=== PATIENT | male | born 1945 | race Caucasian/White ===

== ENCOUNTER 2017-11-03 19:15 | Emergency (ER) | payer MEDICARE, OTHER ==
[2017-11-03 21:45] VITALS: BP 131/85
--- NOTE | 2017-11-04 01:11 | ED ---
Aristides Cowan Nilda, scribed for Solomon Rosas MD on 11/03/17 at 2146 . Skin Complaint - HPI Summary HPI Summary: Pt is a 72 y/o who found tick on right upper arm earlier today. Pt states daughter removed it for him. Pt denies pain, fever, and any other symptoms. Symptoms aggravated by nothing and alleviated by tick removal. - History of Current Complaint Chief Complaint: EDAnimalBite Time Seen by Provider: 11/03/17 21:37 Stated Complaint: TICK BITE Hx Obtained From: Patient Onset/Duration: Resolved Skin Exposure Onset/Duration: Minutes Ago Current Severity: None Pain Intensity: 0 Pain Scale Used: 0-10 Numeric Skin Location: Other: - right upper arm Aggravating Symptom(s): Nothing Alleviating Symptom(s): Other: - tick removal Related History: Insect Bite/Sting - Allergy/Home Medications Allergies/Adverse Reactions: Allergies Allergy/AdvReac Type Severity Reaction Status Date / Time No Known Allergies Allergy Verified 11/03/17 19:21 PMH/Surg Hx/FS Hx/Imm Hx Endocrine/Hematology History: Reports: Hx Diabetes Cardiovascular History: Reports: Hx Hypertension Infectious Disease History: No Infectious Disease History: Denies: Traveled Outside the [place] in Last 30 Days - Social History Alcohol Use: Weekly Substance Use Type: Reports: None Smoking Status (MU): Never Smoked Tobacco Review of Systems Negative: Fever Positive: Other - tick bite on right upper arm; negative pain. All Other Systems Reviewed And Are Negative: Yes Physical Exam - Summary Physical Exam Summary: VITAL SIGNS: Reviewed. GENERAL: Patient is a well-developed and nourished male who is lying comfortable in the stretcher. Patient is not in any acute respiratory distress. HEAD AND FACE: No signs of trauma. No ecchymosis, hematomas or skull depressions. No sinus tenderness. EYES: PERRLA, EOMI x 2, No injected conjunctiva, no nystagmus. EARS: Hearing grossly intact. Ear canals and tympanic membranes are within normal limits. MOUTH: Oropharynx within normal limits. NECK: Supple, trachea is midline, no adenopathy, no JVD, no carotid bruit, no c- spine tenderness, neck with full ROM. CHEST: Symmetric, no tenderness at palpation LUNGS: Clear to auscultation bilaterally. No wheezing or crackles. CVS: Regular rate and rhythm, S1 and S2 present, no murmurs or gallops appreciated. ABDOMEN: Soft, non-tender. No signs of distention. No rebound no guarding, and no masses palpated. Bowel sounds are normal. EXTREMITIES: FROM in all major joints, no edema, no cyanosis or clubbing. NEURO: Alert and oriented x 3. No acute neurological deficits. Speech is normal and follows commands. SKIN: Dry and warm; Pt has a pinpoint skin break over medial aspect of right upper arm. No ACM. No rash. It seems tick has been totally removed. Triage Information Reviewed: Yes Vital Signs On Initial Exam: Initial Vitals Temp Pulse Resp BP Pulse Ox 98.5 F 106 18 153/76 94 11/03/17 19:19 11/03/17 19:19 11/03/17 19:19 11/03/17 19:19 11/03/17 19:19 Vital Signs Reviewed: Yes Diagnostics - Vital Signs Vital Signs Temp Pulse Resp BP Pulse Ox 11/03/17 19:19 98.5 F 106 18 153/76 94 - Laboratory Lab Statement: Any lab studies that have been ordered have been reviewed, and results considered in the medical decision making process. Course/Dx - Course Assessment/Plan: Pt is a 72 y/o who found tick on right upper arm earlier today. Pt states daughter removed it for him. Pt denies pain, fever, and any other symptoms. Pt will be D/C home with Dx tick bite and instructions to receive Lyme titer in 6 weeks, return to ED if rash develops, and to follow up with PCP. - Diagnoses Provider Diagnoses: Tick bite of right upper arm Discharge - Sign-Out/Discharge Documenting (check all that apply): Discharge - home - Discharge Plan Condition: Stable Disposition: HOME Patient Education Materials: Lyme Disease (ED), Tick Bite (ED) Referrals: Jayleen Ulloa MD [Primary Care Provider] - 3 Days Additional Instructions: If you develop rash, return to ER. Obtain a Lyme titer 6 weeks from now. The documentation as recorded by the Aristides ryan Nilda accurately reflects the service I personally performed and the decisions made by , Solomon Rosas MD.
== END 2017-11-03 21:46 | disposition home or self-care (01) ==
LOC: ED 19:15
DX: S40.861A Insect bite (nonvenomous) of right upper arm, initial encounter (principal); W57.XXXA Bitten or stung by nonvenomous insect and other nonvenomous arthropods, initial encounter; Y92.9 Unspecified place or not applicable
CPT/HCPCS: 99281

== ENCOUNTER 2017-12-13 20:24 | Emergency (ER) | payer MEDICARE, OTHER ==
[2017-12-13] MEDS ORDERED: NS 0.9% 1000 ML* 1,000 ML IV ONE (20:53)
[2017-12-13 21:10] LABS: Hematocrit 41 % (42-52); Hemoglobin 13.4 g/dl (14.0-18.0); Mean Corpuscular HGB Conc 33 g/dl (31-36); Mean Corpuscular Hemoglobin 25 pg (27-31); Mean Corpuscular Volume 76 fL (80-94); Mean Platelet Volume 8.6 um3 (7.4-10.4); Platelet Count 183 10^3/ul (150-450); Red Blood Count 5.37 10^6/ul (4.0-5.4); Red Cell Distribution Width 16 % (10.5-15)
[2017-12-13 21:13] LABS: ABS Basophils 0.1 10^3/ul (0-0.2); ABS Eosinophils 0.2 10^3/ul (0-0.6); ABS Monocytes 0.4 10^3/ul (0-0.8); ABS Neutrophils 4.2 10^3/ul (1.5-7.7); ABS Nucleated RBC 0 10^3/ul; Eosinophil % 3.5 % (0-6); Lymphocyte % 17.2 % (25-47); Nucleated Red Blood Cells % 0
[2017-12-13 21:16] LABS: INR 0.97 (0.77-1.02)
[2017-12-13 22:02] VITALS: BP 149/84
--- NOTE | 2017-12-14 04:31 | ED ---
Willy Cowan Jennifer, scribed for Cesar Bhakta MD on 12/13/17 at 2142 . Dizziness - HPI Summary HPI Summary: The patient is a 72 year old male who presents with dizziness that began about 1.5 hours ago. The patient reports he sat down after eating dinner and felt sweaty, cold, lightheaded, and had trouble catching his breath. The patient denies chest pain, spinning, vomiting, diarrhea, syncope, irregular heartbeat. He does complain of a little nausea, and feeling his heart beat. The patient states he feels fine in the ED now. - History Of Current Complaint Chief Complaint: EDDizziness Stated Complaint: DIZZY/SWEATING/SOB Time Seen by Provider: 12/13/17 21:34 Hx Obtained From: Patient Onset/Duration: Resolved, Suddenly Timing: Hours - about 1.5 hours Severity Initially: Mild Severity Currently: Mild Character: Lightheaded Aggravating Factor(s): Nothing Alleviating Factor(s): Nothing Associated Signs And Symptoms: Positive: Other: - little nausea, lightheadedness , sweaty, cold, trouble catching breath, "felt heart beat". NEGATIVE: chest pain , spinning, vomiting, diarrhea, syncope, irregular heartbeat - Allergies/Home Medications Allergies/Adverse Reactions: Allergies Allergy/AdvReac Type Severity Reaction Status Date / Time No Known Allergies Allergy Verified 12/13/17 20:34 Home Medications: Home Medications Aspirin 81 mg CHEW TAB* [Aspirin Low Dose TAB*] 81 mg PO DAILY 12/13/17 [ History Confirmed 12/13/17] Cilostazol TAB* [Pletal TAB*] 100 mg PO BID 12/13/17 [History Confirmed 12/13/17 ] Clopidogrel TAB* [Plavix TAB*] 75 mg PO DAILY 12/13/17 [History Confirmed ] Fish Oil/Borage/Flax/Om3,6,9 1 [[place] 3-6-9 1,200 mg Softgel] 1,200 mg PO DAILY 12/13/17 [History Confirmed 12/13/17] Levothyroxine Sodium 50 mcg PO QAM 12/13/17 [History Confirmed 12/13/17] Lisinopril [Lisinopril] 40 mg PO DAILY 12/13/17 [History Confirmed 12/13/17] Metoprolol Tartrate TAB* [Lopressor TAB*] 0.5 tab PO DAILY 12/13/17 [History Confirmed 12/13/17] Omeprazole [Omeprazole] 20 mg PO DAILY 12/13/17 [History Confirmed 12/13/17] Sitagliptin (NF) [Januvia (NF)] 50 mg PO BID 12/13/17 [History Confirmed ] glipiZIDE [Glipizide] 10 mg PO BID 12/13/17 [History Confirmed 12/13/17] metFORMIN* [Glucophage 1000 MG TAB *] 1,000 mg PO BID 12/13/17 [History Confirmed 12/13/17] PMH/Surg Hx/FS Hx/Imm Hx Endocrine/Hematology History: Reports: Hx Diabetes - Type 2 Cardiovascular History: Reports: Hx Hypertension, Other Cardiovascular Problems/ Disorders - Hx stent in right leg Infectious Disease History: No Infectious Disease History: Denies: Traveled Outside the [place] in Last 30 Days - Social History Alcohol Use: Weekly Substance Use Type: Reports: None Hx Tobacco Use: Yes Smoking Status (MU): Smoker, Current Status Unknown Review of Systems Positive: Skin Diaphoresis, Other - Cold Cardiovascular: Negative - Irregular heartbeat Positive: Palpitations - "felt heart beat". Negative: Chest Pain Positive: Shortness Of Breath Positive: Nausea. Negative: Vomiting, Diarrhea Neurological: Negative - Spinning, Other - Lightheaded Negative: Syncope All Other Systems Reviewed And Are Negative: Yes Physical Exam - Summary Physical Exam Summary: Appearance: Well appearing, no pain distress Skin: warm, dry, reflects adequate perfusion Head/face: normal Eyes: EOMI, RICA ENT: normal Neck: supple, non-tender Respiratory: CTA, breath sounds present Cardiovascular: RRR, pulses symmetrical Abdomen: non-tender, soft Bowel Sounds: present Musculoskeletal: normal, strength/ROM intact, no lower extremity edema Neuro: normal, sensory motor intact, A&Ox3 Triage Information Reviewed: Yes Vital Signs On Initial Exam: Initial Vitals Temp Pulse Resp BP Pulse Ox 97.5 F 82 20 128/63 94 12/13/17 20:30 12/13/17 20:30 12/13/17 20:30 12/13/17 20:30 12/13/17 20:30 Vital Signs Reviewed: Yes Diagnostics - Vital Signs Vital Signs Temp Pulse Resp BP Pulse Ox 12/13/17 21:27 75 17 113/57 93 12/13/17 21:00 77 17 94 12/13/17 20:56 78 11 120/61 95 12/13/17 20:30 97.5 F 82 20 128/63 94 - Laboratory Lab Results: Lab Results 12/13/17 12/13/17 12/13/17 Range/Units 21:02 21:02 21:02 WBC 6.0 (3.5-10.8) 10^3/ul RBC 5.37 (4.0-5.4) 10^6/ul Hgb 13.4 L (14.0-18.0) g/dl Hct 41 L (42-52) % MCV 76 L (80-94) fL MCH 25 L (27-31) pg MCHC 33 (31-36) g/dl RDW 16 H (10.5-15) % Plt Count 183 (150-450) 10^3/ul MPV 8.6 (7.4-10.4) um3 Neut % (Auto) 71.3 (38-83) % Lymph % (Auto) 17.2 L (25-47) % [place] % (Auto) 7.0 (0-7) % Eos % (Auto) 3.5 (0-6) % Baso % (Auto) 1.0 (0-2) % Absolute Neuts (auto) 4.2 (1.5-7.7) 10^3/ul Absolute Lymphs (auto) 1.0 (1.0-4.8) 10^3/ul Absolute Monos (auto) 0.4 (0-0.8) 10^3/ul Absolute Eos (auto) 0.2 (0-0.6) 10^3/ul Absolute Basos (auto) 0.1 (0-0.2) 10^3/ul Absolute Nucleated RBC 0 10^3/ul Nucleated RBC % 0 INR (Anticoag Therapy) (0.77-1.02) Sodium 140 (139-145) mmol/L Potassium 3.3 L (3.5-5.0) mmol/L Chloride 108 (101-111) mmol/L Carbon Dioxide 23 (22-32) mmol/L Anion Gap 9 (2-11) mmol/L BUN 18 (6-24) mg/dL Creatinine 1.23 H (0.67-1.17) mg/dL Est GFR ( Amer) 74.6 (>60) Est GFR (Non-Af Amer) 58.0 (>60) BUN/Creatinine Ratio 14.6 (8-20) Glucose 112 H (70-100) mg/dL Lactic Acid 1.6 (0.5-2.0) mmol/L Calcium 9.1 (8.6-10.3) mg/dL Total Bilirubin 0.40 (0.2-1.0) mg/dL AST 17 (13-39) U/L ALT 23 (7-52) U/L Alkaline Phosphatase 42 (34-104) U/L Total Creatine Kinase 54 (10-223) U/L Troponin I Pending Total Protein 6.7 (6.4-8.9) g/dL Albumin 4.1 (3.2-5.2) g/dL Globulin 2.6 (2-4) g/dL Albumin/Globulin Ratio 1.6 (1-3) TSH Pending 12/13/17 Range/Units 21:02 WBC (3.5-10.8) 10^3/ul RBC (4.0-5.4) 10^6/ul Hgb (14.0-18.0) g/dl Hct (42-52) % MCV (80-94) fL MCH (27-31) pg MCHC (31-36) g/dl RDW (10.5-15) % Plt Count (150-450) 10^3/ul MPV (7.4-10.4) um3 Neut % (Auto) (38-83) % Lymph % (Auto) (25-47) % [place] % (Auto) (0-7) % Eos % (Auto) (0-6) % Baso % (Auto) (0-2) % Absolute Neuts (auto) (1.5-7.7) 10^3/ul Absolute Lymphs (auto) (1.0-4.8) 10^3/ul Absolute Monos (auto) (0-0.8) 10^3/ul Absolute Eos (auto) (0-0.6) 10^3/ul Absolute Basos (auto) (0-0.2) 10^3/ul Absolute Nucleated RBC 10^3/ul Nucleated RBC % INR (Anticoag Therapy) 0.97 (0.77-1.02) Sodium (139-145) mmol/L Potassium (3.5-5.0) mmol/L Chloride (101-111) mmol/L Carbon Dioxide (22-32) mmol/L Anion Gap (2-11) mmol/L BUN (6-24) mg/dL Creatinine (0.67-1.17) mg/dL Est GFR ( Amer) (>60) Est GFR (Non-Af Amer) (>60) BUN/Creatinine Ratio (8-20) Glucose (70-100) mg/dL Lactic Acid (0.5-2.0) mmol/L Calcium (8.6-10.3) mg/dL Total Bilirubin (0.2-1.0) mg/dL AST (13-39) U/L ALT (7-52) U/L Alkaline Phosphatase (34-104) U/L Total Creatine Kinase (10-223) U/L Troponin I Total Protein (6.4-8.9) g/dL Albumin (3.2-5.2) g/dL Globulin (2-4) g/dL Albumin/Globulin Ratio (1-3) TSH Result Diagrams: 12/13/17 21:02 12/13/17 21:02 Lab Statement: Any lab studies that have been ordered have been reviewed, and results considered in the medical decision making process. - EKG 2032 Cardiac Rate: NL EKG Rhythm: Sinus Rhythm - 77 BPM EKG Interpretation: Normal axis, 1st degree AV block Re-Evaluation - Re-Evaluation First Eval Change: Improved - Symptoms are fully resolved Dizzy Course/Dx - Course Course Of Treatment: Patient with abrupt onset of lightheadedness without rotational vertigo. Blood sugar is normal, laboratories here are benign. His symptoms have resolved fully. The symptoms were postprandial and may have been due to a dip in his blood sugar at that time. This of course would recover quickly. His symptoms went away fairly quickly as well. He has no headache or neurologic deficit. Will follow-up with his primary care physician. - Diagnoses Differential Diagnosis/HQI/PQRI: Anxiety, Benign Paroxysmal Positional Vertigo, Hyperventilation, Hypovolemia, Labyrinthitis, Metabolic Abnormality, Vasovagal Reaction Provider Diagnoses: Lightheadedness Discharge - Sign-Out/Discharge Documenting (check all that apply): Discharge/Admit/Transfer - Discharge Plan Condition: Good Disposition: HOME Patient Education Materials: Sushant (ED) Referrals: Jayleen Ulloa MD [Primary Care Provider] - Additional Instructions: If this happens again immediately checked her blood sugar and sit down. Try some orange juice if her blood sugar is below 70. Call your doctor first thing in the morning for follow-up. Return if worse, new symptoms, or other concerns. - Billing Disposition and Condition Condition: GOOD Disposition: HOME The documentation as recorded by the Willy ryan Jennifer accurately reflects the service I personally performed and the decisions made by me, Cesar Bhakta MD.
== END 2017-12-13 22:15 | disposition home or self-care (01) ==
LOC: ED 20:24
DX: R42 Dizziness and giddiness (principal); R00.2 Palpitations; R11.0 Nausea; Z72.0 Tobacco use; Z86.79 Personal history of other diseases of the circulatory system; E11.9 Type 2 diabetes mellitus without complications
CPT/HCPCS: 36415; 80053; 82550; 83605; 84443; 84484; 85025; 85610; 93005; 96360; 99283

== ENCOUNTER 2017-12-22 16:02 | Emergency (ER) | payer MEDICARE, OTHER ==
[2017-12-22 16:18] VITALS: BP 109/63
--- NOTE | 2018-01-29 19:45 | UC ---
Skin Complaint HPI - HPI Summary HPI Summary: red itchy spot at area of blood draw on left arm last week---no streaking fevers chills swelling or pain - History of Current Complaint Chief Complaint: UCSkin Time Seen by Provider: 12/22/17 16:41 Stated Complaint: SKIN COMPLAINT ARM Hx Obtained From: Patient Onset/Duration: Sudden Onset Skin Exposure Onset/Duration: Days Ago Timing: Constant Pain Intensity: 3 Pain Scale Used: 0-10 Numeric Location: Discrete Character: Redness Aggravating Factor(s): Nothing Alleviating Factor(s): Nothing Associated Signs & Symptoms: Positive: Negative - Allergy/Home Medications Allergies/Adverse Reactions: Allergies Allergy/AdvReac Type Severity Reaction Status Date / Time No Known Allergies Allergy Verified 12/22/17 16:18 Review of Systems Constitutional: Negative Skin: Other - small erythemic area right arm Eyes: Negative ENT: Negative Respiratory: Negative Cardiovascular: Negative Gastrointestinal: Negative Genitourinary: Negative Motor: Negative Neurovascular: Negative Musculoskeletal: Negative Neurological: Negative Psychological: Negative Is Patient Immunocompromised?: No All Other Systems Reviewed And Are Negative: Yes PMH/Surg Hx/FS Hx/Imm Hx Previously Healthy: No Endocrine History: Diabetes, Hypothyroidism Cardiovascular History: Cardiac Disease, Hypertension - Surgical History Surgical History: Yes Surgery Procedure, Year, and Place: stent rt leg - Family History Known Family History: Positive: None - Social History Occupation: Disabled Lives: With Family Alcohol Use: Weekly Substance Use Type: None Smoking Status (MU): Light Every Day Tobacco Smoker Physical Exam Triage Information Reviewed: Yes Appearance: Well-Appearing, No Pain Distress, Well-Nourished Vital Signs: Initial Vital Signs Temp 98.6 F 12/22/17 16:15 Pulse 70 12/22/17 16:15 Resp 18 12/22/17 16:15 BP 109/63 12/22/17 16:15 Pulse Ox 97 12/22/17 16:15 Vital Signs Reviewed: Yes Eye Exam: Normal Eyes: Positive: Conjunctiva Clear ENT Exam: Normal ENT: Positive: Normal ENT inspection, Hearing grossly normal. Negative: Trismus , Muffled voice, Hoarse voice Dental Exam: Normal Neck exam: Normal Neck: Positive: Supple, Nontender Respiratory Exam: Normal Respiratory: Positive: Chest non-tender, No respiratory distress, No accessory muscle use Cardiovascular Exam: Normal Cardiovascular: Positive: RRR, Pulses Normal, Brisk Capillary Refill Musculoskeletal Exam: Normal Musculoskeletal: Positive: Strength Intact, ROM Intact Neurological Exam: Normal Neurological: Positive: Alert, Muscle Tone Normal Psychological Exam: Normal Psychological: Positive: Normal Response To Family Skin: Positive: Other - smll erythemic area right arm Course/Dx - Course Course Of Treatment: WARM COMPRESS FOLLOW WITH PCP PRN - Diagnoses Provider Diagnoses: phlebitis right forearm Discharge - Sign-Out/Discharge Documenting (check all that apply): Discharge/Admit/Transfer - Discharge Plan Condition: Stable Disposition: HOME Patient Education Materials: Warm Compress or Soak (ED), Phlebitis (ED) Referrals: Jayleen Ulloa MD [Primary Care Provider] - If Needed - Billing Disposition and Condition Condition: STABLE Disposition: Home
== END 2017-12-22 17:04 | disposition home or self-care (01) ==
LOC: UCEAST 16:02
DX: T81.72XA Complication of vein following a procedure, not elsewhere classified, initial encounter (principal); I80.8 Phlebitis and thrombophlebitis of other sites; E11.9 Type 2 diabetes mellitus without complications; E03.9 Hypothyroidism, unspecified; I11.9 Hypertensive heart disease without heart failure; F17.210 Nicotine dependence, cigarettes, uncomplicated
CPT/HCPCS: 99211; G0463

== ENCOUNTER 2018-01-12 13:31 | Inpatient (IN) | payer MEDICARE, OTHER ==
[2018-01-12] MEDS ORDERED: NS 0.9% 1000 ML* 1,000 ML IV ONE (13:53)
[2018-01-12] MEDS ORDERED: Atropine 1MG/ML INJ* 1 ML VIAL IV PUSH PRN (13:58)
[2018-01-12] MEDS ORDERED: Atropine SYRINGE* 0.1 MG/ML 10 ML SYRINGE (1 MG) ONE ×2 (13:58→21:27)
[2018-01-12 14:16] LABS: Hematocrit 36 % (42-52); Hemoglobin 11.8 g/dl (14.0-18.0); Mean Corpuscular HGB Conc 33 g/dl (31-36); Mean Corpuscular Hemoglobin 25 pg (27-31); Mean Corpuscular Volume 75 fL (80-94); Mean Platelet Volume 8.1 um3 (7.4-10.4); Platelet Count 266 10^3/ul (150-450); Red Blood Count 4.83 10^6/ul (4.00-5.40); Red Cell Distribution Width 16 % (10.5-15); White Blood Count 4.9 10^3/ul (3.5-10.8)
[2018-01-12 14:27] LABS: INR 0.97 (0.77-1.02)
[2018-01-12 14:34] LABS: EGFR Non-African American 68.1 (>60)
[2018-01-12 14:50] LABS: ABS Basophils 0.1 10^3/ul (0-0.2); ABS Eosinophils 0.2 10^3/ul (0-0.6); ABS Lymphocytes 1.1 10^3/ul (1.0-4.8); ABS Monocytes 0.5 10^3/ul (0-0.8); ABS Neutrophils 3.1 10^3/ul (1.5-7.7); ABS Nucleated RBC 0 10^3/ul; Eosinophil % 3.9 % (0-6); Lymphocyte % 21.7 % (25-47); Nucleated Red Blood Cells % 0.1
[2018-01-12] MEDS ORDERED: Iodixanol* (CONTRAST) 320 MG/ML 100 ML SDV IV ONE (14:56)
--- NOTE | 2018-01-12 15:26 | RAD ---
INDICATION: Chest pain. Short of breath. Evaluate for pulmonary embolus. COMPARISON: Chest x-ray January 12, 2018 TECHNIQUE: Axial source images were obtained from the thoracic inlet to the hemidiaphragms following administration of [address] angiographic technique was utilized. Coronal and sagittal reconstructed images were acquired. CHEST FINDINGS: Neck/thyroid: The visualized neck to include the thyroid appear normal. Chest wall: There are no acute abnormalities of the bony thorax or chest wall. There is no supraclavicular, infraclavicular, or axillary lymphadenopathy. Lungs : There are no pulmonary parenchymal masses or infiltrates. There are underlying emphysematous changes. There are no endobronchial lesions. Cardiomediastinal structures: There is no CT evidence of acute pulmonary embolic disease. The heart is normal in size. There is no pericardial effusion. There is no evidence of aortic aneurysm or dissection. There is no mediastinal or hilar adenopathy. The esophagus appears normal. Pleura : There are no pleural-based masses or effusions. Other: Limited views the upper abdomen show a 1.5 cm gallstone. IMPRESSION: 1. No CT evidence of acute pulmonary embolic disease. 2. Emphysema. 3. Cholelithiasis.
--- NOTE | 2018-01-12 15:27 | RAD ---
INDICATION: Chest pain COMPARISON: None TECHNIQUE: An AP portable view obtained at 1421 hours is submitted. FINDINGS: Bones/Soft Tissues: There are no acute bony findings. There is an external pacing pad Cardiomediastinal: The cardiomediastinal silhouette is normal. Lungs: There are no infiltrates. Pleura: There are no pleural effusions. Other: None IMPRESSION: NO ACTIVE DISEASE.
[2018-01-12] MEDS ORDERED: Magnesium Sulfate IV* 3 GM in NS 0.9% 100 ML* 100 ML IVPB ONE (18:30)
[2018-01-12] MEDS ORDERED: Al Hydrox/Mg Hydrox/Simet LIQ* 30 ML UDC PO PRN (18:53)
[2018-01-12] MEDS: cefTRIAXone(*) 2 GM in NS 0.9% 100 ML* 100 ML IVPB SCH (20:30)
[2018-01-12] MEDS ORDERED: Dextrose 50% Syringe 50 ML* 25 GM/50 ML SYRINGE IV PUSH PRN (21:41)
[2018-01-12] MEDS: NS 0.9% 1000 ML* 1,000 ML IV SCH (21:41)
[2018-01-12] MEDS: Heparin VIAL(*) 5000 UNITS/ML VIAL (FIVE THOUSAND) SUBCUT SCH (22:33)
[2018-01-12 22:59] LABS: Urine Appearance Clear; Urine Blood Negative (Negative); Urine Color Yellow; Urine Ketones Negative (Negative); Urine Protein Negative (Negative); Urine Specific Gravity 1.039 (1.010-1.030); Urine Urobilinogen Negative (Negative)
--- NOTE | 2018-01-13 02:08 | CONS ---
CC: [facility]; Dr. Ulloa.* CARDIOLOGY CONSULTATION NOTE: DATE OF CONSULT: 01/12/18 REASON FOR EVALUATION: Bradycardia. HISTORY OF PRESENT ILLNESS: This is a very pleasant 72-year-old gentleman with a history of peripheral vascular disease, hypertension, diabetes, and tobacco use, who has noted intermittent episodes of lightheadedness and feeling poorly over the last few months. He was seen in the emergency room in October for a tick bite, which was removed. He had no rash or fevers and no subsequent symptoms after that. In November, he was back for feeling episodes of lightheadedness and shortness of breath. According to the family, he is monitored occasionally for bradycardia, but his reported heart rate were in the 70s. His EKG from December 13 revealed sinus rhythm at 77 with first degree AV block. He said that about 6 weeks ago, he has told that his right leg stent is compromised and he may require repeat angioplasty. He states that the leg aches , but he has also been limited by shortness of breath and the leg achiness as well as some lightheadedness with exertion. He said this has been intermittent. He said that he thought he could walk about 100 yards until about a couple of weeks ago, but he has been more limited. He said over the last four days, he has had intermittent episodes of lightheadedness which lasted a second to 3 seconds and resolved. He has had no syncope. It can occur at rest or with standing or walking. He also thinks he is more short of breath with these episodes and with exertion. Because of those progressive symptoms, he decided to come to the emergency room. He was found to have sinus bradycardia into the 30s and some pauses. He denies chest pain. He denies orthopnea. He denies peripheral edema, syncope or near syncope. No fevers, chills, sweats, rashes, hematemesis, hematochezia. PAST MEDICAL HISTORY: He does have a history of tobacco use, half a pack per day and he smoked for about 50+ years, hypertension, diabetes. No strokes or mini strokes. Peripheral vascular disease status post stenting on the right 2 years ago at [facility]. He also was told that he snores and might have sleep apnea based on anesthesia's report of his behavior during his procedure 2 years ago. He has not had a formal testing. PAST SURGICAL HISTORY: Includes angioplasty on the right leg. No other surgeries. ALLERGIES: He denies any allergies. SOCIAL HISTORY: He drinks 4 to 5 cups of caffeinated coffee a day. He drinks alcohol about once a month. He is . He has 4 children. 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 MEDICATIONS: His medications include: 1. Aspirin 81 mg a day. 2. Pletal 100 mg twice a day. 3. Clopidogrel 75 mg a day. 4. Flonase 50 mcg 2 sprays daily. 5. Lisinopril 20 mg 2 tablets a day. 6. Januvia 50 mg a day. 7. Glipizide 10 mg a day. 8. Metformin 1000 mg twice a day. 9. Metoprolol 25 mg half a tablet twice a day. 10. Multivitamin. 11. [place]-3 1200 mg a day. 12. Omeprazole 20 mg a day. 13. Simvastatin 80 mg a day. 14. TriCor 145 mg a day. 15. Synthroid 50 mcg a day. As an inpatient, his medicines include: 1. Magnesium sulfate 3 g IV. 2. Subcu heparin 5000 q. 8. 3. Aspirin. 4. Lipitor 20 mg a day. 5. Ceftriaxone. FAMILY HISTORY: His family history includes 3 brothers, a younger brother had coronary stents in his 60s. He has a sister. No premature coronary disease. His mother at 96, father at 92. REVIEW OF SYSTEMS: Review of systems x10 was negative except as above. PHYSICAL EXAMINATION: On physical exam, he has a well-developed, obese gentleman, in no apparent distress. Pulse of 41 and varying, blood pressure is 123/60 in the right arm. JVD of approximately 10 cm. Carotids 2+, no bruits. No cervical adenopathy. No thyromegaly. Cardiac Exam: S1, S2. No clear murmurs, gallops, or rubs. Chest was clear. No CVAT, decreased breath sounds. Abdomen Exam: Bowel sounds present. Nontender. Femoral pulses intact with bruits, right greater than left. No significant edema. Distal pulses on the right, dorsalis pedis was present, posterior tibialis was absent. On the left, the posterior tibialis was present and dorsalis pedis was absent. alert/ oriented x3. DTR 2/4 bilaterally. DIAGNOSTIC STUDIES/LAB DATA: EKG from 1351 today revealed sinus bradycardia 45 , low amplitude. The EKG from 01/12 at 1909 revealed possible ectopic atrial rhythm and sinus bradycardia with junctional escape and sinus pauses. CTA of the chest reveals no evidence of pulmonary embolism, emphysema was present, and cholelithiasis was present. Chest x-ray revealed no active disease. No effusions. Labs include hematocrit of 36%, MCV low at 75, platelet count of 266. D-dimer of 434. INR 0.97. Sodium 139, potassium of 4.1. BUN of 25, creatinine of 1.07. Magnesium low 1.6. Troponin of 0. CRP elevated at 13.84. BNP mildly elevated at 173. TSH of 5.02. IMPRESSION: My impression is that Mr. Ferrari appears to have symptomatic sinus node dysfunction with a history of peripheral vascular disease, diabetes, hypertension, emphysema, tobacco use, and on metoprolol therapy. He also has a history of a tick bite. It is quite possible, he has developed symptomatic sinus node disease that may or may not reverse with holding the metoprolol. I did explain this to him and his family. I explained that it is likely he may require a pacemaker. I also explained there is increased risk of bleeding while on dual antiplatelet therapy. For the time being, I would recommend the following. He is to hold the Plavix for now as discussed with Dr. Gongora. Would observe at bed rest, off metoprolol, to follow for resolution of his bradycardia. If his symptomatic bradycardia persists, he may require a pacemaker. I explained to him even if it resolves, he may develop sinus node dysfunction in the future and may require pacemaker, needs to be vigilant for that. I would suggest an evaluation of his LV function with an echo given his risk factors for LV dysfunction. I would consider a pharmacologic stress test at some point once his heart rate is secured. I would also suggest an evaluation for sleep apnea. He has already gotten antibiotics in the form of ceftriaxone 2 g IV for possible Lyme disease. I would suggest checking a Lyme titer. Would continue atorvastatin as you are doing at 20 mg, would hold Plavix, you also got dose of doxycycline. He is getting heparin. Would replace the magnesium as you are doing. He has a low MCV anemia. consider checking iron and other etiologies for anemia. Further recommendation pending his clinical course. [id number]/[facility] #: [id number] [facility]
--- NOTE | 2018-01-13 03:43 | HP ---
CC: Dr. Jayleen Ulloa * HISTORY AND PHYSICAL: DATE OF ADMISSION: 01/12/18 PROVIDER: Rhonda Encarnacion NP PRIMARY CARE PROVIDER: Dr. Jayleen Ulloa ATTENDING PHYSICIAN WHILE IN THE HOSPITAL: Haleigh Gongora MD * (dictated by Rhonda Encarnacion NP) CHIEF COMPLAINT: 1. Shortness of breath. 2. Lightheadedness. HISTORY OF PRESENT ILLNESS: Mr. Ferrari is a 72-year-old male patient who carries a past medical history significant for peripheral vascular disease with stenting in the right leg, hypertension, diabetes type 2, hypothyroidism, and hyperlipidemia, who presented to the emergency room with a four-day history of complaining of lightheadedness. The patient states that approximately four days ago he developed some lightheadedness and shortness of breath. He denied any chest pain. He denies any cough or congestion. He denies any fevers or chills. He states that he has these periods where he has a feeling of losing his breath and chest heaviness that only lasts for a brief second and then resolves. He also reports that he has brief episodes of feeling lightheaded which also quickly resolve after a few seconds. The patient reports palpitations as well. He denies any recent sick contacts. Denies any nausea, vomiting, or diarrhea. Denies any new or changes in his medications. Denies any hematuria or dysuria. Denies any headache or loss of consciousness. Denies any syncopal episodes. While in the emergency room, the patient was placed on the monitor, routine lab work was drawn. The patient was found to be bradycardiac and with heart rates of between 25 and 52 on the monitor, and sinus dipesh. Due to his symptomatic profound bradycardia, we were asked to see and evaluate him in the emergency room. PAST MEDICAL HISTORY: Significant for: 1. Peripheral vascular disease with right leg stenting. 2. Hypertension. 3. Diabetes type 2. 4. Hypothyroidism. 5. Hyperlipidemia. PAST SURGICAL HISTORY: 1. Right leg stenting in 2016. HOME MEDICATIONS: 1. Simvastatin 40 mg p.o. daily. 2. Omeprazole 20 mg p.o. daily. 3. TriCor 145 mg p.o. daily. 4. Multivitamin one tablet p.o. daily. 5. Metoprolol 25 mg daily. He takes 12.5 mg b.i.d. for a total of 25 mg. 6. Fish oil 1200 mg p.o. daily. 7. Metformin 1000 mg p.o. b.i.d. 8. Lisinopril 40 mg p.o. daily. 9. Januvia 50 mg p.o. b.i.d. 10. Levothyroxine 50 mcg p.o. daily. 11. Glipizide 10 mg p.o. b.i.d. 12. Fluticasone nasal spray, two sprays both nares. 13. Clopidogrel 75 mg p.o. daily. 14. Pletal 100 mg p.o. b.i.d. 15. Aspirin 81 mg p.o. daily. ALLERGIES TO MEDICATIONS: No known drug allergies. He does report an allergy to ONIONS. FAMILY HISTORY: No reported history of coronary artery disease. Father with a history of diabetes. No reported history of cancer. SOCIAL HISTORY: The patient currently smokes half a pack per day. He reports rare alcohol use. Denies any illicit drug use. He is retired. He is . He lives with his children and grandchildren. Surrogate decision maker in the event he is unable to make his own decisions is his daughter, Rehana Marshall ; her phone number is [phone]. He is a full code. REVIEW OF SYSTEMS: There was no documented fever. There has been no significant weight change. There was no double vision, no ear drainage. He denies any rhinorrhea. He denies any sore throat. No thyroid issues. Denies any chest pain. He denies any orthopnea or nocturnal dyspnea. There was no abdominal pain. No nausea, vomiting. Denies dysuria or urinary frequency. There were no seizures. No loss of consciousness. He does report lightheadedness, palpitations, and a feeling of losing his breath at times. There were no seizures. No pruritus or skin ulcerations. Review of 14 systems was completed and others were negative. PHYSICAL EXAMINATION GENERAL: At this time, Mr. Ferrari is a 72-year-old male. He appears comfortable , alert and oriented, sitting on the stretcher in no acute distress. VITAL SIGNS: As follows: Temperature 97.8, heart rate anywhere from 27 to 63, bradycardia with periods of pausing, blood pressure 129/68. HEENT: Head is atraumatic, normocephalic. Eyes: EOMs are intact. Sclerae anicteric and not pale. Oral mucosa appeared to be moist. There is no oropharyngeal erythema. NECK: Supple. LUNGS: Clear to auscultation bilaterally. No wheezes, rales, or rhonchi. CARDIAC: S1, S2. Irregular rate and rhythm. There are no murmurs, rubs, or gallops. ABDOMEN: Soft and nontender. Bowel sounds are present x4. EXTREMITIES: Pulses are +2 throughout. He is moving all 4 extremities with 5/ 5 strength. NEUROLOGIC: He is awake, alert and oriented x4. There is no gross neuro focal deficits. His speech is clear. Tongue is midline. SKIN: Intact. DIAGNOSTIC STUDIES AND LABORATORY DATA: WBCs 4.9, RBCs 4.83, hemoglobin 11.8, hematocrit 36, platelet count 266. INR 0.97. D-dimer 434. Sodium 139, potassium 4.1, chloride 112, carbon dioxide 20. Anion gap 7, BUN 25, creatinine 1.07, glucose 181, lactic acid 1.4, calcium 9.0, magnesium 1.6. ALTs 70, ASTs 35, alk phos 64. C-reactive protein 13.84. BNP 173 and TSH 5.02 , and free T4 was 1.25. EKG showed slow sinus arrhythmia, rate of 57. He had a CT of the chest, radiologist impression: 1. No CT evidence of pulmonary embolic disease. 2. Emphysema. 3. Cholelithiasis. He had a chest x-ray, radiologist impression: No active disease. ASSESSMENT AND PLAN: Mr. Ferrari is a 72-year-old gentleman who presented to the emergency room today with a 4-day history of shortness of breath and dizziness. We were asked to see and evaluate him due to his shortness of breath and dizziness. He was found to have profound bradycardia. He will be admitted to the ICU inpatient for: 1. Bradycardia, sick sinus syndrome. I suspect this could possibly be related to his current beta-yasmeen, but also in the differential we should consider possible Lyme endocarditis as the patient recently had a tick bite in October 2017 that was untreated with any antibiotics. We will continue to trend his troponin. We will start normal saline at 100 cc per hour. He will have pacer pads attached to his chest and atropine at the bedside. Cardiology was consulted for further recommendations. His metoprolol will be held. His lisinopril will also be held. 2. Hypertension. We will continue to hold his metoprolol and lisinopril as his blood pressures are soft and he is profoundly bradycardiac. 3. Peripheral vascular disease. We will hold Plavix. At this time, we will continue his baby aspirin 81 mg and Pletal as the patient may possibly need pacemaker placement tomorrow or in the near future. 4. Diabetes. We will place him on lispro sliding scale and Accupril-checks a.c. and h.s. 5. Hypothyroid. We will continue his levothyroxine as prescribed at home. His TSH today was 5.02. 6. Hyperlipidemia. We will continue him on his simvastatin. 7. FEN. He will be placed on heart-healthy, decaf-okay diet. He will be n.p.o. after midnight in the event they would need to do pacemaker placement tomorrow. 8. Code status. He is a full code. 9. DVT prophylaxis. I will place him on heparin subcu. This should be held prior to pacemaker placement. TIME SPENT: Time spent on this admission was approximately 60 minutes, greater than half that time was spent with the patient [id number] obtaining my history and physical, the other half of the time was spent going over my plan of care and implementing my plan of care. I have discussed this with my attending, Dr. Haleigh Gongora, and she is in agreement with my plan. RHONDA ENCARNACION, FRANCISCA [id number]/[facility] #: [id number] JL
[2018-01-13] MEDS: Heparin VIAL(*) 5000 UNITS/ML VIAL (FIVE THOUSAND) SUBCUT SCH ×3 (05:52→21:48)
[2018-01-13] MEDS: Levothyroxine TAB* 50 MCG TAB PO SCH (05:52)
[2018-01-13 06:09] LABS: ABS Basophils 0 10^3/ul (0-0.2); ABS Eosinophils 0.1 10^3/ul (0-0.6); ABS Lymphocytes 0.9 10^3/ul (1.0-4.8); ABS Monocytes 0.4 10^3/ul (0-0.8); ABS Neutrophils 3.2 10^3/ul (1.5-7.7); ABS Nucleated RBC 0 10^3/ul; Hematocrit 35 % (42-52); Hemoglobin 11.3 g/dl (14.0-18.0); Lymphocyte % 18.4 % (25-47); Mean Corpuscular HGB Conc 33 g/dl (31-36); Mean Corpuscular Hemoglobin 25 pg (27-31); Mean Corpuscular Volume 75 fL (80-94); Mean Platelet Volume 8.3 um3 (7.4-10.4); Nucleated Red Blood Cells % 0; Platelet Count 225 10^3/ul (150-450); Red Blood Count 4.59 10^6/ul (4.00-5.40); Red Cell Distribution Width 16 % (10.5-15); White Blood Count 4.6 10^3/ul (3.5-10.8)
[2018-01-13 06:13] LABS: INR 0.98 (0.77-1.02)
[2018-01-13] MEDS: NS 0.9% 1000 ML* 1,000 ML IV SCH ×2 (06:53→17:13)
[2018-01-13] MEDS ORDERED: Clopidogrel TAB* 75 MG PO SCH (09:00)
[2018-01-13] MEDS: Aspirin 81 mg CHEW TAB* 81 MG TAB.CHEW PO SCH (09:10)
[2018-01-13] MEDS: Omeprazole CAP* 20 MG PO SCH (09:10)
[2018-01-13] MEDS: Atorvastatin* 20 MG TAB PO SCH (09:10)
[2018-01-13] MEDS: Multivitamins/Minerals TAB PO SCH (09:10)
[2018-01-13] MEDS: Insulin LISPRO* 1 UNITS UNIT SUBCUT SCH ×3 (09:11→17:33)
--- NOTE | 2018-01-13 09:38 | ECHO ---
Patient: LAZARO ANN [facility] Rec#: [id number] : 1945 Date: 01/13/2018 Age: 72y Height: 177.8 cm / 70.0 in Weight: 97.52 kg / 214.9 lbs Sex: M BSA: 2.15 Room#: [facility] Admit Date#: 01/12/2018 Type: Inpatient Referring: Rhonda Encarnacion Reading: Sharath Le MD Assembler [employer] Frames: Kayley Tirado RDCS CC: Jayleen Ulloa MD Transthoracic Echocardiogram Indication: Abnormal EKG, dyspnea. BP: 131/59 HR: 46 Rhythm: Bradycardia Findings History: PVD, HTN, DM, smoker, HLD, hypothyroidism, recent tick bite 10/2017. Technical Comments: The study quality is fair. The study is technically limited due to poor parasternal windows. Completed at 0830. Left Ventricle: The left ventricular chamber size is normal. Mild concentric left ventricular hypertrophy is observed. Global left ventricular wall motion and contractility are within normal limits. Left ventricular systolic function is at the lower limits of normal. The estimated ejection fraction is 50-55%. There is no consistent Doppler evidence of clinically significant diastolic dysfunction. Left Atrium: The left atrium is mildly dilated. Right Ventricle: The right ventricle is not well visualized. The right ventricle is mildly dilated. The right ventricular global systolic function is low normal. Right Atrium: The right atrium is not well visualized. The right atrium is mildly dilated. Aortic Valve: The aortic valve is trileaflet. The aortic valve leaflets are mildly thickened. There is a trace of aortic regurgitation. There is no evidence of aortic stenosis. Mitral Valve: The mitral valve leaflets are mildly thickened. There is a trace of mitral regurgitation. There is no evidence of mitral stenosis. Tricuspid Valve: The tricuspid valve leaflets are normal. There is mild tricuspid regurgitation. The right ventricular systolic pressure is estimated at 34 mmHg. There is evidence of borderline pulmonary hypertension. There is no tricuspid stenosis. Pulmonic Valve: The pulmonic valve appears normal. There is a trace pulmonic regurgitation. There is no pulmonic stenosis. Pericardium: There is no significant pericardial effusion. Aorta: There is mild dilatation of the ascending aorta. There is no dilatation of the aortic arch. There is mild dilatation of the aortic root. Pulmonary Artery: The main pulmonary artery is not well visualized. Venous: The inferior vena cava is dilated. There is less than 50% respiratory change in the inferior vena cava dimension. Conclusions The study is technically limited due to poor parasternal windows. Mild concentric left ventricular hypertrophy is observed. Global left ventricular wall motion and contractility are within normal limits. Left ventricular systolic function is at the lower limits of normal. The estimated ejection fraction is 50-55%. The left atrium is mildly dilated. The right ventricle is mildly dilated. The right atrium is mildly dilated. There is a trace of aortic regurgitation. There is no evidence of aortic stenosis. There is a trace of mitral regurgitation. There is mild dilatation of the ascending aorta. There is mild dilatation of the aortic root. No reports of prior studies are offered for comparison. Of note brief periods of a significant bradycardic rate are noted. The rhythm strip is not of a quality good enough to definitively analyze the precise rhythm. Measurements Name Value Normal Range RVIDd (AP) 2D 3.4 cm (0.9 - 2.6) RVDdMajor (2D) 4.7 cm (2.2 - 4.4) RAd ISD 4CH 6 cm (3.4 - 4.9) RA (A4C)W 4.6 cm (2.9 - 4.6) IVSd (2D) 1.1 cm (0.6 - 1) LVPWd (2D) 1.2 cm (0.6 - 1) LVIDd (2D) 4.1 cm (3.6 - 5.4) LVIDs (2D) 2.9 cm - LV FS (2D) 29 % (25 - 45) Aortic Annulus 2.1 cm (1.4 - 2.6) Ao root diameter (2D) 3.8 cm (2.1 - 3.5) Ascending Ao 3.8 cm (2.1 - 3.4) Aortic arch 2.7 cm (1.8 - 3.4) LA dimension (AP) 2D 3.2 cm (2.3 - 3.8) LAd ISD 4CH 6.2 cm (2.9 - 5.3) LA ISD 4CH W 4.6 cm (2.5 - 4.5) Name Value Normal Range LA ESV SP 4CH (A/L) 67 ml - LA ESV SP 2CH (A/L) 56 ml - LA ESV BP (A/L) 64 ml - LA ESV BP (A/L) index 30 ml/m2 - LA ESV SP 4CH (MOD) 60 ml - LA ESV SP 2CH (MOD) 55 ml - Name Value Normal Range MV E-wave Vmax 1 m/sec - MV deceleration time 248.9 msec - MV A-wave Vmax 0.6 m/sec - MV E:A ratio 1.67 ratio - LV septal e' Vmax 0.09 m/sec - LV lateral e' Vmax 0.12 m/sec - LV E:e' septal ratio 11.11 ratio - LV E:e' lateral ratio 8.33 ratio - Name Value Normal Range AV Vmax 1.3 m/sec - AV VTI 27.4 cm - AV peak gradient 6.78 mmHg - AV mean gradient 3.52 mmHg - LVOT Vmax 1.1 m/sec - LVOT VTI 24.39 cm - LVOT peak gradient 5.2 mmHg - LVOT mean gradient 2.4 mmHg - VINCENZO Vmax 0.71 m/sec - Name Value Normal Range TR Vmax 2.2 m/sec - TR peak gradient 19 mmHg - RAP 15 mmHg - RVSP 34 mmHg - IVC diameter 2.7 cm - Name Value Normal Range PV Vmax 0.88 m/sec - PV peak gradient 3.11 mmHg -
--- NOTE | 2018-01-13 11:59 | PN ---
Subjective Date of Service: 01/13/18 Interval History: Patient seen and examined at bedside. Denies fever, chills, shortness of breath , chest discomfort, N/V/D. Pt states that the tick removed in October was on him no longer than ~ 12 hours. Tele: Sinus dipesh, rate 30-60's Family History: Unchanged from Admission Social History: Unchanged from Admission Past Medical History: Unchanged from Admission Objective Active Medications: Acetaminophen (Tylenol Tab*) 650 mg PO Q4H PRN Reason: FEVER/PAIN Al Hydrox/Mg Hydrox/Simethicone (Maalox Plus*) 30 ml PO Q6H PRN Reason: INDIGESTION Aspirin (Aspirin 81 Mg Chew Tab*) 81 mg PO DAILY ASHLEY Atorvastatin Calcium (Lipitor*) 20 mg PO DAILY ASHLEY Atropine Sulfate (Atropine 1mg/Ml Inj*) 0.5 mg IV PUSH Q3M PRN Reason: BRADYCARDIA Dextrose (D50w Syringe 50 Ml*) 12.5 gm IV PUSH .FOR FS < 60 - SS PRN Reason: FS < 60 Fluticasone Propionate (Flonase Nasal [place] 50mcg*) 2 spray BOTH NARES DAILY ASHLEY Heparin Sodium (Porcine) (Heparin Vial(*)) 5,000 units SUBCUT Q8HR ASHLEY Sodium Chloride (Ns 0.9% 1000 Ml*) 1,000 mls @ 100 mls/hr IV PER RATE ASHLEY Ceftriaxone Sodium 2 gm/ (Sodium Chloride) 100 mls @ 200 mls/hr IVPB Q24H A[facility]LEY Insulin Human Lispro (Humalog*) 0 units SUBCUT AC ASHLEY; Protocol Levothyroxine Sodium (Synthroid Tab*) 50 mcg PO 0600 ASHLEY Multivitamins/Minerals (Theragran/Minerals Tab*) 1 tab PO DAILY ASHLEY Omeprazole (Prilosec Cap*) 20 mg PO DAILY ASHLEY Vital Signs - 8 hr 01/13/18 01/13/18 01/13/18 03:55 04:00 04:09 Temperature 98.2 F Pulse Rate 50 68 Respiratory 11 9 Rate Blood Pressure 123/71 (mmHg) O2 Sat by Pulse 97 99 Oximetry 01/13/18 01/13/18 01/13/18 04:16 04:30 04:46 Temperature Pulse Rate 58 63 63 Respiratory 19 24 30 Rate Blood Pressure 115/53 113/57 128/46 (mmHg) O2 Sat by Pulse 96 94 96 Oximetry 01/13/18 01/13/18 01/13/18 05:00 05:01 05:16 Temperature Pulse Rate 34 48 55 Respiratory 20 12 25 Rate Blood Pressure 117/58 100/59 (mmHg) O2 Sat by Pulse 95 96 95 Oximetry 01/13/18 01/13/18 01/13/18 05:47 06:00 06:16 Temperature Pulse Rate 67 53 62 Respiratory 14 17 15 Rate Blood Pressure 123/64 102/60 (mmHg) O2 Sat by Pulse 96 97 95 Oximetry 01/13/18 01/13/18 01/13/18 06:31 06:46 07:00 Temperature Pulse Rate 60 42 61 Respiratory 19 15 16 Rate Blood Pressure 131/59 122/65 (mmHg) O2 Sat by Pulse 93 98 96 Oximetry 01/13/18 01/13/18 01/13/18 07:01 07:30 08:00 Temperature 98.9 F Pulse Rate 57 70 66 Respiratory 18 18 19 Rate Blood Pressure 122/61 116/54 126/72 (mmHg) O2 Sat by Pulse 97 95 95 Oximetry 01/13/18 01/13/18 01/13/18 08:30 09:00 09:01 Temperature Pulse Rate 59 54 43 Respiratory 18 11 9 Rate Blood Pressure 115/75 126/70 (mmHg) O2 Sat by Pulse 95 98 95 Oximetry 01/13/18 01/13/18 01/13/18 10:00 10:01 11:41 Temperature 99.1 F Pulse Rate 60 49 Respiratory 19 12 Rate Blood Pressure 102/66 (mmHg) O2 Sat by Pulse 94 97 Oximetry Oxygen Devices in Use Now: None Result Diagrams: 01/13/18 05:43 01/13/18 05:43 Microbiology and Other Data: Microbiology 01/12/18 21:30 Nasal Screen MRSA (PCR)(HERMAN) - Final Nasal Mrsa Not Detected Assess/Plan/Problems-Billing Assessment: Mr. Ferrari is a 72 yo male with PMH significant for PVD s/p right LE stenting, HTN, DM, HLD, and hypothyroidism who presented to the emergency room for shortness of breath and lightheadedness. - Patient Problems (1) Bradycardia Code(s): R00.1 - BRADYCARDIA, UNSPECIFIED SNOMED Code(s): 40994950 Comment: - Suspect sick sinus syndrome - Trop 0.00 x3 - Echo without significant findings - Cardiology consult, input appreciated - Suspect he will need a pacemaker, but needs to be off Plavix for 5-7 days prior - Will get an overnight sleep study to eval for possble sleep apnea - Continue to hold metoprolol (2) Tick bite Code(s): W57.XXXA - BIT/STUNG BY NONVENOM INSECT & OTH NONVENOM ARTHROPODS, INIT SNOMED Code(s): 73930178 Comment: - Pt with a tick bite in 10/2017 (tick on less than 24 hours), not treated with ABX - Lyme serology pending - Continue ceftriaxone for now (3) Hypomagnesemia Code(s): E83.42 - HYPOMAGNESEMIA SNOMED Code(s): 678873742 Comment: - Received replacement yesterday - Plan to recheck today (4) HTN (hypertension) Code(s): I10 - ESSENTIAL (PRIMARY) HYPERTENSION SNOMED Code(s): 62931183 Comment: - Normotensive, SBP 100-120's - Continue to hold lisinopril and metoprolol (5) PVD (peripheral vascular disease) Code(s): I73.9 - PERIPHERAL VASCULAR DISEASE, UNSPECIFIED SNOMED Code(s): 735356211 Comment: - S/P right LE stenting - Hold Plavix for possible procedure - Continue ASA and Pletal (6) Diabetes Code(s): E11.9 - TYPE 2 DIABETES MELLITUS WITHOUT COMPLICATIONS SNOMED Code(s) : 06335134 Comment: - Glucose 90-180's - Hold metformin and glipizide - Continue Lispro SS (7) Hypothyroidism Code(s): E03.9 - HYPOTHYROIDISM, UNSPECIFIED SNOMED Code(s): 54960774 Comment: - TSH 5.02 - Continue levothyroxine (8) HLD (hyperlipidemia) Code(s): E78.5 - HYPERLIPIDEMIA, UNSPECIFIED SNOMED Code(s): 51804307 Comment: - Continue statin (9) DVT prophylaxis Code(s): AIX8653 - SNOMED Code(s): 012771421 Comment: - SQ heparin (10) Full code status Code(s): Z78.9 - OTHER SPECIFIED HEALTH STATUS SNOMED Code(s): 822586343 Status and Disposition: Inpatient. Discharge to home when medically stable, suspect he will need to have a pacemaker insertion but needs to be off plavix for at least 5 days.
--- NOTE | 2018-01-13 12:29 | PN ---
Subjective Date of Service: 01/13/18 - bradycardia, near syncope Interval History: I was not able to examine pt, indisposed at the time I was in ICU. I reviewed records, ECG's strips and discussed with the patient's nurse current issues. Pt with recent near syncopal episodes found to have SSS with intermittent symptomatic bradycardia. Had been on 25 mg Metoprolol, held. On plavix for non cardiac reasons (PVD), old records on this not in the chart. CAD risks of DM, HTN, chol and has PVD lower extremities. Regarding pacemaker: it is indicated, but is not emergent. I feel if OK to hold plavix by PVD MD's, then could plan on scheduling pacemaker early next week (tentative, I will fully examine and see patient this weekend). I will discuss with Dr Ramirez, the inpatient rounding safety risk lead today. Medications Active Medications: Acetaminophen (Tylenol Tab*) 650 mg PO Q4H PRN PRN Reason: FEVER/PAIN Al Hydrox/Mg Hydrox/Simethicone (Maalox Plus*) 30 ml PO Q6H PRN PRN Reason: INDIGESTION Aspirin (Aspirin 81 Mg Chew Tab*) 81 mg PO DAILY [facility] Last Admin: 01/13/18 09:10 Dose: 81 mg Atorvastatin Calcium (Lipitor*) 20 mg PO DAILY [facility] Last Admin: 01/13/18 09:10 Dose: 20 mg Atropine Sulfate (Atropine 1mg/Ml Inj*) 0.5 mg IV PUSH Q3M PRN PRN Reason: BRADYCARDIA Dextrose (D50w Syringe 50 Ml*) 12.5 gm IV PUSH .FOR FS < 60 - SS PRN PRN Reason: FS < 60 Fluticasone Propionate (Flonase Nasal [place] 50mcg*) 2 spray BOTH NARES DAILY [facility] Heparin Sodium (Porcine) (Heparin Vial(*)) 5,000 units SUBCUT Q8HR [facility] Last Admin: 01/13/18 05:52 Dose: 5,000 units Sodium Chloride (Ns 0.9% 1000 Ml*) 1,000 mls @ 100 mls/hr IV PER RATE [facility] Last Admin: 01/13/18 06:53 Dose: 100 mls/hr Ceftriaxone Sodium 2 gm/ (Sodium Chloride) 100 mls @ 200 mls/hr IVPB Q24H [facility] Last Admin: 01/12/18 20:30 Dose: 200 mls/hr Insulin Human Lispro (Humalog*) 0 units SUBCUT AC [facility]; Protocol Last Admin: 01/13/18 12:08 Dose: Not Given Levothyroxine Sodium (Synthroid Tab*) 50 mcg PO 0600 [facility] Last Admin: 01/13/18 05:52 Dose: 50 mcg Multivitamins/Minerals (Theragran/Minerals Tab*) 1 tab PO DAILY [facility] Last Admin: 01/13/18 09:10 Dose: 1 tab Omeprazole (Prilosec Cap*) 20 mg PO DAILY [facility] Last Admin: 01/13/18 09:10 Dose: 20 mg Objective Vital Signs: Temp Pulse Resp BP Pulse Ox 99.1 F 49 12 102/66 97 01/13/18 11:41 01/13/18 10:01 01/13/18 10:01 01/13/18 10:01 01/13/18 10:01 Oxygen Devices in Use Now: None Laboratory Results: 01/13/18 05:43 01/13/18 05:43 INR (Anticoag Therapy) 0.98 (0.77-1.02) 01/13/18 05:43 APTT 28.0 seconds (26.0-36.3) 01/12/18 14:06 Total Bilirubin 0.30 mg/dL (0.2-1.0) 01/12/18 14:06 AST 35 U/L (13-39) 01/12/18 14:06 ALT 70 U/L (7-52) H 01/12/18 14:06 Alkaline Phosphatase 64 U/L (34-104) 01/12/18 14:06 CK-MB (CK-2) 5.4 ng/mL (0.6-6.3) 01/12/18 14:06 B-Natriuretic Peptide 173 pg/mL (-100) H 01/12/18 14:06 Total Protein 6.2 g/dL (6.4-8.9) L 01/12/18 14:06 Albumin 3.5 g/dL (3.2-5.2) 01/12/18 14:06 Globulin 2.7 g/dL (2-4) 01/12/18 14:06 Albumin/Globulin Ratio 1.3 (1-3) 01/12/18 14:06 Triglycerides 209 mg/dL 01/13/18 05:43 Cholesterol 90 mg/dL 01/13/18 05:43 LDL Cholesterol 30 mg/dL 01/13/18 05:43 HDL Cholesterol 17.9 mg/dL 01/13/18 05:43 TSH 5.02 mcIU/mL (0.34-5.60) 01/12/18 14:06 01/12/18 01/12/18 01/12/18 14:06 16:49 19:11 Troponin I 0.00 0.00 0.00 01/12/18 22:53 Troponin I 0.00
--- NOTE | 2018-01-13 16:12 | ED ---
Rodrick Cowan Angela, scribed for Bola Ferrari MD on 01/12/18 at 1352 . Shortness of Breath - HPI Summary HPI Summary: This pt is a 72 y/o male presenting to [facility] via EMS from [facility] c/o SOB and lightheadedness today. Pt reports this morning he was sitting in his chair and began to feel lightheaded while "doing certain things." Denies LOC. He states that he was diagnosed with beginning stage of pneumonia 6 weeks ago. Pt notes that his SOB and cough have been worsening. He states he has to breathe heavily. Currently he notes SOB that is moderately alleviated with oxygen. He reports he feels lightheaded only when moving now. Denies chest pain , calf pain. PMHx includes type 2 DM, HTN, neuropathy in R toe, s/p stent in R leg. He is currently on metoprolol and has been on it for "years," he took it last this morning. Pt is unable to recall if his metoprolol dose was changed. Pt is also on anticoagulants. Denies hx of [place] or blood clots. Pt is current smoker, 1/2 PPD. - History of Current Complaint Time Seen by Provider: 01/12/18 13:46 Hx Obtained From: Patient Onset/Duration: Gradual Onset, Still Present Timing: Constant Current Severity: Moderate Dyspnea At: Rest Aggrevating Factors: Nothing Alleviating Factors: Oxygen Associated Signs & Symptoms: Cough (Nonproductive) - Allergy/Home Medications Allergies/Adverse Reactions: Allergies Allergy/AdvReac Type Severity Reaction Status Date / Time No Known Allergies Allergy Verified 12/22/17 16:18 Home Medications: Home Medications Fenofibrate(NF) [Tricor(NF)] 145 mg PO DAILY 01/12/18 [History Confirmed ] Fluticasone NASAL SPRAY 50MCG* [Flonase NASAL SPRAY 50MCG*] 2 spray BOTH NARES DAILY 01/12/18 [History Confirmed 01/12/18] Levothyroxine TAB* [Synthroid TAB*] 50 mcg PO DAILY 01/12/18 [History Confirmed 01/12/18] Lisinopril TAB* [Prinivil TAB*] 40 mg PO DAILY 01/12/18 [History Confirmed 01/12] Multivitamins/Minerals TAB* [Theragran/minerals TAB*] 1 tab PO DAILY 01/12/18 [ History Confirmed 01/12/18] Omeprazole CAP* [Prilosec CAP* 20 MG] 20 mg PO DAILY 01/12/18 [History Confirmed 01/12/18] Simvastatin (NF) [Zocor (NF)] 40 mg PO DAILY 01/12/18 [History Confirmed ] glipiZIDE TAB* [Glucotrol TAB*] 10 mg PO BID 01/12/18 [History Confirmed ] PMH/Surg Hx/FS Hx/Imm Hx Endocrine/Hematology History: Reports: Hx Diabetes - Type 2 Cardiovascular History: Reports: Hx Hypertension, Other Cardiovascular Problems/ Disorders - Hx stent in right leg - Surgical History Surgery Procedure, Year, and Place: stent rt leg Infectious Disease History: No Infectious Disease History: Denies: Traveled Outside the [place] in Last 30 Days - Family History Known Family History: Positive: Diabetes Family History: Father: prostate CA - Social History Alcohol Use: Weekly Substance Use Type: Reports: None Hx Tobacco Use: Yes Smoking Status (MU): Light Every Day Tobacco Smoker Review of Systems Negative: Fever Negative: Chest Pain Positive: Shortness Of Breath, Cough Negative: Other - calf pain Neurological: Other - POS: lightheadedness All Other Systems Reviewed And Are Negative: Yes Physical Exam - Summary Physical Exam Summary: GENERAL: Patient is a well developed and nourished male who is lying comfortable in the stretcher. Patient is not in any acute respiratory distress. HEAD AND FACE: Normocephalic EYES: PERRLA, EOMI x 2. EARS: Hearing grossly intact. MOUTH: Oropharynx within normal limits. NECK: Supple, trachea is midline, no adenopathy, no JVD, no carotid bruit. CHEST: Symmetric, no tenderness at palpation LUNGS: Clear to auscultation bilaterally. No wheezing or crackles. CVS: Regular rate and rhythm, S1 and S2 present, no murmurs or gallops appreciated. ABDOMEN: Soft, non-tender. Bowel sounds are normal. No abdominal abnormal pulsations. EXTREMITIES: Full ROM in all major joints, no edema, no cyanosis or clubbing. NEURO: Alert and oriented x 3. No acute neurological deficits. Speech is normal and follows commands. SKIN: Dry and warm Triage Information Reviewed: Yes Vital Signs On Initial Exam: Initial Vitals Temp Pulse Resp BP Pulse Ox 97.8 F 46 16 144/63 98 01/12/18 13:42 01/12/18 13:42 01/12/18 13:42 01/12/18 13:42 01/12/18 13:42 Vital Signs Reviewed: Yes Diagnostics - Vital Signs Vital Signs Temp Pulse Resp BP Pulse Ox 01/12/18 13:42 97.8 F 46 16 144/63 98 - Laboratory Lab Results: Lab Results 01/12/18 01/12/18 01/12/18 Range/Units 14:06 14:06 14:06 WBC 4.9 (3.5-10.8) 10^3/ul RBC 4.83 (4.00-5.40) 10^6/ul Hgb 11.8 L (14.0-18.0) g/dl Hct 36 L (42-52) % MCV 75 L (80-94) fL MCH 25 L (27-31) pg MCHC 33 (31-36) g/dl RDW 16 H (10.5-15) % Plt Count 266 (150-450) 10^3/ul MPV 8.1 (7.4-10.4) um3 Neut % (Auto) 62.2 (38-83) % Lymph % (Auto) 21.7 L (25-47) % [place] % (Auto) 10.9 H (0-7) % Eos % (Auto) 3.9 (0-6) % Baso % (Auto) 1.3 (0-2) % Absolute Neuts (auto) 3.1 (1.5-7.7) 10^3/ul Absolute Lymphs (auto) 1.1 (1.0-4.8) 10^3/ul Absolute Monos (auto) 0.5 (0-0.8) 10^3/ul Absolute Eos (auto) 0.2 (0-0.6) 10^3/ul Absolute Basos (auto) 0.1 (0-0.2) 10^3/ul Absolute Nucleated RBC 0 10^3/ul Nucleated RBC % 0.1 INR (Anticoag Therapy) 0.97 (0.77-1.02) APTT 28.0 (26.0-36.3) seconds D-Dimer, Quantitative 434 H (Less Than 230) ng/mL Sodium 139 (135-145) mmol/L Potassium 4.1 (3.5-5.0) mmol/L Chloride 112 H (101-111) mmol/L Carbon Dioxide 20 L (22-32) mmol/L Anion Gap 7 (2-11) mmol/L BUN 25 H (6-24) mg/dL Creatinine 1.07 (0.67-1.17) mg/dL Est GFR ( Amer) 87.6 (>60) Est GFR (Non-Af Amer) 68.1 (>60) BUN/Creatinine Ratio 23.4 H (8-20) Glucose 181 H (70-100) mg/dL Lactic Acid (0.5-2.0) mmol/L Calcium 9.0 (8.6-10.3) mg/dL Magnesium 1.6 L (1.9-2.7) mg/dL Iron 49 L (50-212) ug/dL TIBC 360 (250-450) mcg/dL % Saturation 14 L (15-55) % Unsat Iron Binding 311 ug/dL Transferrin 257 (203-362) mg/dL Total Bilirubin 0.30 (0.2-1.0) mg/dL AST 35 (13-39) U/L ALT 70 H (7-52) U/L Alkaline Phosphatase 64 (34-104) U/L CK-MB (CK-2) 5.4 (0.6-6.3) ng/mL Troponin I 0.00 (<0.04) ng/mL C-Reactive Protein 13.84 H (<8.01) mg/L B-Natriuretic Peptide ( - 100) pg/mL Total Protein 6.2 L (6.4-8.9) g/dL Albumin 3.5 (3.2-5.2) g/dL Globulin 2.7 (2-4) g/dL Albumin/Globulin Ratio 1.3 (1-3) TSH 5.02 (0.34-5.60) mcIU/mL Free T4 1.25 H (0.61-1.12) ng/dL 01/12/18 01/12/18 01/12/18 Range/Units 14:06 14:06 16:49 WBC (3.5-10.8) 10^3/ul RBC (4.00-5.40) 10^6/ul Hgb (14.0-18.0) g/dl Hct (42-52) % MCV (80-94) fL MCH (27-31) pg MCHC (31-36) g/dl RDW (10.5-15) % Plt Count (150-450) 10^3/ul MPV (7.4-10.4) um3 Neut % (Auto) (38-83) % Lymph % (Auto) (25-47) % [place] % (Auto) (0-7) % Eos % (Auto) (0-6) % Baso % (Auto) (0-2) % Absolute Neuts (auto) (1.5-7.7) 10^3/ul Absolute Lymphs (auto) (1.0-4.8) 10^3/ul Absolute Monos (auto) (0-0.8) 10^3/ul Absolute Eos (auto) (0-0.6) 10^3/ul Absolute Basos (auto) (0-0.2) 10^3/ul Absolute Nucleated RBC 10^3/ul Nucleated RBC % INR (Anticoag Therapy) (0.77-1.02) APTT (26.0-36.3) seconds D-Dimer, Quantitative (Less Than 230) ng/mL Sodium (135-145) mmol/L Potassium (3.5-5.0) mmol/L Chloride (101-111) mmol/L Carbon Dioxide (22-32) mmol/L Anion Gap (2-11) mmol/L BUN (6-24) mg/dL Creatinine (0.67-1.17) mg/dL Est GFR ( Amer) (>60) Est GFR (Non-Af Amer) (>60) BUN/Creatinine Ratio (8-20) Glucose (70-100) mg/dL Lactic Acid 1.4 (0.5-2.0) mmol/L Calcium (8.6-10.3) mg/dL Magnesium (1.9-2.7) mg/dL Iron (50-212) ug/dL TIBC (250-450) mcg/dL % Saturation (15-55) % Unsat Iron Binding ug/dL Transferrin (203-362) mg/dL Total Bilirubin (0.2-1.0) mg/dL AST (13-39) U/L ALT (7-52) U/L Alkaline Phosphatase (34-104) U/L CK-MB (CK-2) (0.6-6.3) ng/mL Troponin I 0.00 (<0.04) ng/mL C-Reactive Protein (<8.01) mg/L B-Natriuretic Peptide 173 H ( - 100) pg/mL Total Protein (6.4-8.9) g/dL Albumin (3.2-5.2) g/dL Globulin (2-4) g/dL Albumin/Globulin Ratio (1-3) TSH (0.34-5.60) mcIU/mL Free T4 (0.61-1.12) ng/dL Result Diagrams: 01/13/18 05:43 01/13/18 05:43 Lab Statement: Any lab studies that have been ordered have been reviewed, and results considered in the medical decision making process. - Radiology Chest XR Xray Interpretation: No Acute Changes - IMPRESSION: No active disease. Dr. Ferrari has reviewed this radiology report. Radiology Interpretation Completed By: Radiologist - CT Chest/Thorax CTA CT Interpretation: No Acute Changes - IMPRESSION: 1. No CT evidence of acute pulmonary embolic disease. 2. Emphysema. 3. Cholelithiasis. Dr. Ferrari has reviewed this radiology report. CT Interpretation Completed By: Radiologist - EKG 13:51 Cardiac Rate: Bradycardia - at 45 bpm EKG Rhythm: Sinus Bradycardia EKG Interpretation: Probably incomplete right bundle. Re-Evaluation - Re-Evaluation First Eval Re-Evaluation Time: 15:44 Comment: I reviewed the XR and CTA results with the pt. He notes he is a current smoker. Discussed admission plan with the pt. He understands and agrees. Course/Dx - Course Course Of Treatment: 72-year-old male who presents to the emergency room with shortness of breath and was found to be bradycardic on arrival with heart rate ranging in the high 20s- 50s but otherwise hemodynamically stable in good mentation. Pacer pad was immediately placed on the patient and atropine was kept at the bedside. His EKG shows sinus bradycardia. His workup is remarkable for mildly elevated d-dimer and so a CT scan of the chest was done which shows no PE but shows findings consistent with emphysema. Patient admitted to telemetry. - Diagnoses Provider Diagnoses: Bradycardia - Physician Notifications Discussed Care of Patient With: Drea Lundberg Time Discussed With Above Provider: 16:16 Instructed by Provider To: Other - I discussed pt care with Dr. Lundberg, hospitalist, who accepted the pt for admission. - Critical Care Time Critical Care Time: 30-74 min Discharge - Sign-Out/Discharge Documenting (check all that apply): Discharge/Admit/Transfer - Admit - Discharge Plan Condition: Stable Disposition: ADMITTED TO [facility] - Billing Disposition and Condition Condition: STABLE Disposition: Admitted to [facility] The documentation as recorded by the Rodrick ryan Angela accurately reflects the service I personally performed and the decisions made by , Bola Ferrari MD.
[2018-01-13] MEDS: Fluticasone NASAL SPRAY 50MCG* 16 gm SPRAY BTL BOTH NARES SCH (17:34)
[2018-01-13] MEDS: cefTRIAXone(*) 2 GM in NS 0.9% 100 ML* 100 ML IVPB SCH (19:47)
[2018-01-14] MEDS: NS 0.9% 1000 ML* 1,000 ML IV SCH (03:30)
[2018-01-14] MEDS: Levothyroxine TAB* 50 MCG TAB PO SCH (05:43)
[2018-01-14] MEDS: Fluticasone NASAL SPRAY 50MCG* 16 gm SPRAY BTL BOTH NARES SCH ×2 (05:44→09:32)
[2018-01-14] MEDS: Heparin VIAL(*) 5000 UNITS/ML VIAL (FIVE THOUSAND) SUBCUT SCH ×3 (05:44→21:58)
--- NOTE | 2018-01-14 08:47 | PN ---
Subjective Date of Service: 01/14/18 Interval History: Patient seen and examined at bedside. Denies fever, chills, lightheadedness or dizziness, chest discomfort, N/V/D. Pt states that he feels like he can't catch his breath this morning due to a significant amount of post nasal drip and chest congestion. He also reports right rib discomfort from coughing all night. Tele: Sinus dipesh to Sinus rhythm, rate 30-70's. Pt noted to have several pauses overnight. Family History: Unchanged from Admission Social History: Unchanged from Admission Past Medical History: Unchanged from Admission Objective Active Medications: Acetaminophen (Tylenol Tab*) 650 mg PO Q4H PRN Reason: FEVER/PAIN Al Hydrox/Mg Hydrox/Simethicone (Maalox Plus*) 30 ml PO Q6H PRN Reason: INDIGESTION Aspirin (Aspirin 81 Mg Chew Tab*) 81 mg PO DAILY ASHLEY Atorvastatin Calcium (Lipitor*) 20 mg PO DAILY ASHLEY Atropine Sulfate (Atropine 1mg/Ml Inj*) 0.5 mg IV PUSH Q3M PRN Reason: BRADYCARDIA Dextrose (D50w Syringe 50 Ml*) 12.5 gm IV PUSH .FOR FS < 60 - SS PRN Reason: FS < 60 Fluticasone Propionate (Flonase Nasal [place] 50mcg*) 2 spray BOTH NARES DAILY [facility] Heparin Sodium (Porcine) (Heparin Vial(*)) 5,000 units SUBCUT Q8HR [facility] Sodium Chloride (Ns 0.9% 1000 Ml*) 1,000 mls @ 100 mls/hr IV PER RATE [facility] Ceftriaxone Sodium 2 gm/ (Sodium Chloride) 100 mls @ 200 mls/hr IVPB Q24H [facility] Insulin Human Lispro (Humalog*) 0 units SUBCUT AC ASHLEY; Protocol Levothyroxine Sodium (Synthroid Tab*) 50 mcg PO 0600 [facility] Multivitamins/Minerals (Theragran/Minerals Tab*) 1 tab PO DAILY ASHLEY Omeprazole (Prilosec Cap*) 20 mg PO DAILY [facility] Vital Signs - 8 hr 01/14/18 01/14/18 01/14/18 00:50 01:00 02:00 Temperature Pulse Rate 59 67 54 Respiratory 24 23 20 Rate Blood Pressure 104/60 138/72 (mmHg) O2 Sat by Pulse 91 93 96 Oximetry 01/14/18 01/14/18 01/14/18 02:01 03:00 03:01 Temperature Pulse Rate 57 46 71 Respiratory 18 19 19 Rate Blood Pressure 116/77 142/69 (mmHg) O2 Sat by Pulse 94 97 97 Oximetry 01/14/18 01/14/18 01/14/18 03:25 04:00 05:00 Temperature 98.3 F Pulse Rate 51 53 Respiratory 16 16 12 Rate Blood Pressure 133/70 137/70 (mmHg) O2 Sat by Pulse 97 96 Oximetry 01/14/18 01/14/18 01/14/18 05:47 06:00 06:01 Temperature Pulse Rate 53 68 Respiratory 16 14 18 Rate Blood Pressure 115/89 (mmHg) O2 Sat by Pulse 96 97 Oximetry 01/14/18 07:26 Temperature 98.8 F Pulse Rate Respiratory Rate Blood Pressure (mmHg) O2 Sat by Pulse Oximetry Oxygen Devices in Use Now: None Appearance: NAD, sitting up in bed Ears/Nose/Mouth/Throat: Mucous Membranes Moist Neck: NL Appearance and Movements; NL JVP Respiratory: Symmetrical Chest Expansion and Respiratory Effort, Clear to Auscultation Cardiovascular: NL Sounds; No Murmurs; No JVD, RRR Abdominal: NL Sounds; No Tenderness; No Distention Extremities: No Edema Skin: No Rash or Ulcers Neurological: Alert and Oriented x 3, NL Muscle Strength and Tone Lines/Tubes/Other Access: Clean, Dry and Intact Peripheral IV - site benign Nutrition: Taking PO's Result Diagrams: 01/13/18 05:43 01/13/18 05:43 Additional Lab and Data: . Microbiology and Other Data: Microbiology 01/12/18 21:30 Nasal Screen MRSA (PCR)(HERMAN) - Final Nasal Mrsa Not Detected Assess/Plan/Problems-Billing Assessment: Mr. Ferrari is a 72 yo male with PMH significant for PVD s/p right LE stenting, HTN, DM, HLD, and hypothyroidism who presented to the emergency room for shortness of breath and lightheadedness. - Patient Problems (1) Bradycardia Code(s): R00.1 - BRADYCARDIA, UNSPECIFIED SNOMED Code(s): 72677940 Comment: - Suspect sick sinus syndrome - Trop 0.00 x3 - Echo without significant findings - Cardiology consult, input appreciated - Suspect he will need a pacemaker, but needs to be off Plavix for 5-7 days prior - Overnight sleep study showed no significant desaturation. - Continue to hold metoprolol (2) Tick bite Code(s): W57.XXXA - BIT/STUNG BY NONVENOM INSECT & OTH NONVENOM ARTHROPODS, INIT SNOMED Code(s): 01135997 Comment: - Pt with a tick bite in 10/2017 (tick on less than 24 hours), not treated with ABX - Lyme serology pending - Low suspicion for Lyme endocarditis, will stop ceftriaxone (3) Hypomagnesemia Code(s): E83.42 - HYPOMAGNESEMIA SNOMED Code(s): 354791500 Comment: - Resolved (4) HTN (hypertension) Code(s): I10 - ESSENTIAL (PRIMARY) HYPERTENSION SNOMED Code(s): 37253068 Comment: - Normotensive, SBP 115-140's - Continue to hold lisinopril and metoprolol (5) PVD (peripheral vascular disease) Code(s): I73.9 - PERIPHERAL VASCULAR DISEASE, UNSPECIFIED SNOMED Code(s): 535585508 Comment: - S/P right LE stenting - Hold Plavix for possible procedure (Discussed with FRANCISCA Benton at Dr. Rebolledo's office, ok to hold for 5 days for procedure, then resume YUNG. There is a small risk of stenosis occuring in the stent while off plavix) - Continue ASA and Pletal (6) Diabetes Code(s): E11.9 - TYPE 2 DIABETES MELLITUS WITHOUT COMPLICATIONS SNOMED Code(s) : 46485222 Comment: - Glucose 100-130's - Hold metformin and glipizide - Continue Lispro SS (7) Hypothyroidism Code(s): E03.9 - HYPOTHYROIDISM, UNSPECIFIED SNOMED Code(s): 62939583 Comment: - TSH 5.02 - Continue levothyroxine (8) HLD (hyperlipidemia) Code(s): E78.5 - HYPERLIPIDEMIA, UNSPECIFIED SNOMED Code(s): 33926449 Comment: - Continue statin (9) DVT prophylaxis Code(s): WUW6161 - SNOMED Code(s): 320900932 Comment: - SQ heparin (10) Full code status Code(s): Z78.9 - OTHER SPECIFIED HEALTH STATUS SNOMED Code(s): 177236206 Status and Disposition: Inpatient. Discharge to home when medically stable, suspect he will need to have a pacemaker insertion but needs to be off plavix for at least 5 days.
[2018-01-14] MEDS ORDERED: guaiFENesin LIQ* 100 MG/5 ML UDC PO PRN (08:48)
[2018-01-14] MEDS ORDERED: Saline NASAL SPRAY 0.65%* BTL BOTH NARES PRN (08:48)
[2018-01-14] MEDS: Atorvastatin* 20 MG TAB PO SCH (09:32)
[2018-01-14] MEDS: Multivitamins/Minerals TAB PO SCH (09:32)
[2018-01-14] MEDS: Aspirin 81 mg CHEW TAB* 81 MG TAB.CHEW PO SCH (09:32)
[2018-01-14] MEDS: Omeprazole CAP* 20 MG PO SCH (09:32)
[2018-01-14] MEDS: Insulin LISPRO* 1 UNITS UNIT SUBCUT SCH ×3 (09:32→17:59)
[2018-01-14] MEDS: Acetaminophen TAB* 325 MG PO PRN ×2 (13:25→18:53)
[2018-01-14] MEDS: HYDROcodone/ACETAMIN 5-325 MG* 1 TAB PO PRN (22:55)
[2018-01-15] MEDS: Heparin VIAL(*) 5000 UNITS/ML VIAL (FIVE THOUSAND) SUBCUT SCH ×3 (05:27→21:27)
[2018-01-15] MEDS: Levothyroxine TAB* 50 MCG TAB PO SCH (05:27)
[2018-01-15] MEDS: HYDROcodone/ACETAMIN 5-325 MG* 1 TAB PO PRN ×4 (05:28→23:49)
[2018-01-15 08:17] LABS: EGFR Non-African American 82.1 (>60)
[2018-01-15] MEDS: Aspirin 81 mg CHEW TAB* 81 MG TAB.CHEW PO SCH (09:05)
[2018-01-15] MEDS: Insulin LISPRO* 1 UNITS UNIT SUBCUT SCH ×3 (09:05→18:28)
[2018-01-15] MEDS: Omeprazole CAP* 20 MG PO SCH (09:05)
[2018-01-15] MEDS: Atorvastatin* 20 MG TAB PO SCH (09:05)
[2018-01-15] MEDS: Multivitamins/Minerals TAB PO SCH (09:05)
--- NOTE | 2018-01-15 12:11 | PN ---
Subjective Date of Service: 01/15/18 Interval History: Patient seen and examined at bedside. Denies fever, chills, chest discomfort, N/ V/D. Pt reports "tooth pain" at the site of a tooth extraction about a month ago. Pt denies any rashes in the past. Pt also continues to have complaints of mild SOB that is improving since starting to use nasal saline. Tele: Sinus dipesh to sinus rhythm, rate 30-60's. Family History: Unchanged from Admission Social History: Unchanged from Admission Past Medical History: Unchanged from Admission Objective Active Medications: Acetaminophen (Tylenol Tab*) 650 mg PO Q4H PRN Reason: FEVER/PAIN Hydrocodone Bitart/Acetaminophen ([place] 5-325 Tab*) 1 tab PO Q6H PRN Reason: PAIN Al Hydrox/Mg Hydrox/Simethicone (Maalox Plus*) 30 ml PO Q6H PRN Reason: INDIGESTION Aspirin (Aspirin 81 Mg Chew Tab*) 81 mg PO DAILY ASHLEY Atorvastatin Calcium (Lipitor*) 20 mg PO DAILY ASHLEY Atropine Sulfate (Atropine 1mg/Ml Inj*) 0.5 mg IV PUSH Q3M PRN Reason: BRADYCARDIA Dextrose (D50w Syringe 50 Ml*) 12.5 gm IV PUSH .FOR FS < 60 - SS PRN Reason: FS < 60 Fluticasone Propionate (Flonase Nasal [place] 50mcg*) 2 spray BOTH NARES DAILY ASHLEY Guaifenesin (Robitussin*) 5 ml PO Q6H PRN Reason: COUGH Heparin Sodium (Porcine) (Heparin Vial(*)) 5,000 units SUBCUT Q8HR [facility] Insulin Human Lispro (Humalog*) 0 units SUBCUT AC ASHLEY; Protocol Levothyroxine Sodium (Synthroid Tab*) 50 mcg PO 0600 [facility] Multivitamins/Minerals (Theragran/Minerals Tab*) 1 tab PO DAILY ASHLEY Omeprazole (Prilosec Cap*) 20 mg PO DAILY ASHLEY Sodium Chloride (Sodium Chloride 0.65% Nasal [place]*) 1 spray BOTH NARES Q4H PRN Reason: CONGESTION Vital Signs - 8 hr 01/15/18 01/15/18 01/15/18 04:07 05:00 06:00 Temperature Pulse Rate 59 51 48 Respiratory 16 22 25 Rate Blood Pressure 132/79 140/61 (mmHg) O2 Sat by Pulse 95 96 94 Oximetry 06/01/15/18 01/15/18 06:01 07:00 07:01 Temperature Pulse Rate 52 50 51 Respiratory 18 16 20 Rate Blood Pressure 119/63 109/52 (mmHg) O2 Sat by Pulse 92 98 97 Oximetry 01/15/18 01/15/18 01/15/18 08:00 09:00 10:00 Temperature 99 F Pulse Rate 41 60 55 Respiratory 13 24 18 Rate Blood Pressure 120/67 151/82 (mmHg) O2 Sat by Pulse 97 93 96 Oximetry 01/15/18 01/15/18 01/15/18 10:02 11:00 11:02 Temperature Pulse Rate 56 32 47 Respiratory 18 16 15 Rate Blood Pressure 140/73 132/65 (mmHg) O2 Sat by Pulse 95 96 96 Oximetry Oxygen Devices in Use Now: None Appearance: NAD, laying in bed Ears/Nose/Mouth/Throat: Mucous Membranes Moist, - - Right side of lower jaw with missing molars, no erythema or edema noted Respiratory: Symmetrical Chest Expansion and Respiratory Effort, Clear to Auscultation Cardiovascular: NL Sounds; No Murmurs; No JVD, RRR - , bradycardia Abdominal: NL Sounds; No Tenderness; No Distention Extremities: No Edema Skin: No Rash or Ulcers Neurological: Alert and Oriented x 3, NL Muscle Strength and Tone Lines/Tubes/Other Access: Clean, Dry and Intact Peripheral IV - site benign Nutrition: Taking PO's Result Diagrams: 01/13/18 05:43 01/15/18 07:54 Additional Lab and Data: . Microbiology and Other Data: Microbiology 01/12/18 21:30 Nasal Screen MRSA (PCR)(HERMAN) - Final Nasal Mrsa Not Detected Assess/Plan/Problems-Billing Assessment: Mr. Ferrari is a 72 yo male with PMH significant for PVD s/p right LE stenting, HTN, DM, HLD, and hypothyroidism who presented to the emergency room for shortness of breath and lightheadedness. - Patient Problems (1) Bradycardia Code(s): R00.1 - BRADYCARDIA, UNSPECIFIED SNOMED Code(s): 08600435 Comment: - Suspect sick sinus syndrome - Trop 0.00 x3 - Echo without significant findings - Cardiology consult, input appreciated - Suspect he will need a pacemaker, but needs to be off Plavix for 5-7 days prior - Overnight sleep study showed no significant desaturation. - Continue to hold metoprolol (2) Tick bite Code(s): W57.XXXA - BIT/STUNG BY NONVENOM INSECT & OTH NONVENOM ARTHROPODS, INIT SNOMED Code(s): 73212065 Comment: - Pt with a tick bite in 10/2017 (tick on less than 24 hours), not treated with ABX - Lyme serology positive, further labs still pending - Low suspicion for Lyme endocarditis, stopped ceftriaxone - Suspect positive lyme is a false positive (no leukocytosis, afebrile, no joint pain, no erythema migrans). Will not start ABX at this time (3) Hypomagnesemia Code(s): E83.42 - HYPOMAGNESEMIA SNOMED Code(s): 104936959 Comment: - Resolved (4) HTN (hypertension) Code(s): I10 - ESSENTIAL (PRIMARY) HYPERTENSION SNOMED Code(s): 60724987 Comment: - Normotensive, SBP 100-150's - Continue to hold lisinopril (if BP continues to elevate will restart) and metoprolol (5) PVD (peripheral vascular disease) Code(s): I73.9 - PERIPHERAL VASCULAR DISEASE, UNSPECIFIED SNOMED Code(s): 828362918 Comment: - S/P right LE stenting - Hold Plavix for possible procedure (Discussed with FRANCISCA Benton at Dr. Rebolledo's office, ok to hold for 5 days for procedure, then resume YUNG. There is a small risk of stenosis occuring in the stent while off plavix) - Continue ASA and Pletal (6) Diabetes Code(s): E11.9 - TYPE 2 DIABETES MELLITUS WITHOUT COMPLICATIONS SNOMED Code(s) : 57510763 Comment: - Glucose 120-200's - Hold metformin and glipizide - Continue Lispro SS (7) Hypothyroidism Code(s): E03.9 - HYPOTHYROIDISM, UNSPECIFIED SNOMED Code(s): 55674814 Comment: - TSH 5.02 - Continue levothyroxine (8) HLD (hyperlipidemia) Code(s): E78.5 - HYPERLIPIDEMIA, UNSPECIFIED SNOMED Code(s): 05333690 Comment: - Continue statin (9) DVT prophylaxis Code(s): [place]2357 - SNOMED Code(s): 631681280 Comment: - SQ heparin (10) Full code status Code(s): Z78.9 - OTHER SPECIFIED HEALTH STATUS SNOMED Code(s): 035168958 Status and Disposition: Inpatient. Discharge to home when medically stable, suspect he will need to have a pacemaker insertion but needs to be off plavix for at least 5 days.
[2018-01-15] MEDS: Fluticasone NASAL SPRAY 50MCG* 16 gm SPRAY BTL BOTH NARES SCH (13:04)
[2018-01-15] MEDS: DOXYcycline CAP(*) 100 MG PO SCH ×2 (14:07)
--- NOTE | 2018-01-15 15:22 | PN ---
Subjective Date of Service: 01/15/18 - CC: lightheaded Interval History: Pt with recent near syncopal episodes found to have SSS with intermittent symptomatic bradycardia. The patient is off metoprolol. Not ambulating in ICU, no recent "head huggins" episodes. The patient has had recent KAT mild exertion, states he is now committed to quitting. No CP 2 block ability to walk prior to claudication symptoms limiting. Daughter feels patient has sleep apnea, he has been putting testing this. Medications Active Medications: Acetaminophen (Tylenol Tab*) 650 mg PO Q4H PRN PRN Reason: FEVER/PAIN Last Admin: 01/14/18 18:53 Dose: 650 mg Hydrocodone Bitart/Acetaminophen ([place] 5-325 Tab*) 1 tab PO Q6H PRN PRN Reason: PAIN Last Admin: 01/15/18 14:11 Dose: 1 tab Al Hydrox/Mg Hydrox/Simethicone (Maalox Plus*) 30 ml PO Q6H PRN PRN Reason: INDIGESTION Aspirin (Aspirin 81 Mg Chew Tab*) 81 mg PO DAILY [facility] Last Admin: 01/15/18 09:05 Dose: 81 mg Atorvastatin Calcium (Lipitor*) 20 mg PO DAILY [facility] Last Admin: 01/15/18 09:05 Dose: 20 mg Atropine Sulfate (Atropine 1mg/Ml Inj*) 0.5 mg IV PUSH Q3M PRN PRN Reason: BRADYCARDIA Dextrose (D50w Syringe 50 Ml*) 12.5 gm IV PUSH .FOR FS < 60 - SS PRN PRN Reason: FS < 60 Fluticasone Propionate (Flonase Nasal [place] 50mcg*) 2 spray BOTH NARES DAILY [facility] Last Admin: 01/15/18 13:04 Dose: Not Given Guaifenesin (Robitussin*) 5 ml PO Q6H PRN PRN Reason: COUGH Last Admin: 01/14/18 09:32 Dose: 5 ml Heparin Sodium (Porcine) (Heparin Vial(*)) 5,000 units SUBCUT Q8HR [facility] Last Admin: 01/15/18 13:35 Dose: 5,000 units Insulin Human Lispro (Humalog*) 0 units SUBCUT AC [facility]; Protocol Last Admin: 01/15/18 13:04 Dose: 2 unit Levothyroxine Sodium (Synthroid Tab*) 50 mcg PO 0600 [facility] Last Admin: 01/15/18 05:27 Dose: 50 mcg Multivitamins/Minerals (Theragran/Minerals Tab*) 1 tab PO DAILY [facility] Last Admin: 01/15/18 09:05 Dose: 1 tab Omeprazole (Prilosec Cap*) 20 mg PO DAILY [facility] Last Admin: 01/15/18 09:05 Dose: 20 mg Sodium Chloride (Sodium Chloride 0.65% Nasal [place]*) 1 spray BOTH NARES Q4H PRN PRN Reason: CONGESTION Last Admin: 01/14/18 12:02 Dose: 1 spray Objective Vital Signs: Temp Pulse Resp BP Pulse Ox 99 F 59 19 142/74 95 01/15/18 08:00 01/15/18 14:00 01/15/18 14:00 01/15/18 13:04 01/15/18 14:00 Oxygen Devices in Use Now: None Appearance: centripitally obese , seated, jovial, NAD Eyes: No Scleral Icterus, PERRLA Ears/Nose/Mouth/Throat: NL Teeth, Lips, Gums, Clear Oropharnyx, Mucous Membranes Moist Neck: NL Appearance and Movements; NL JVP, Trachea Midline, No Thyroid Enlargement, Masses Respiratory: Symmetrical Chest Expansion and Respiratory Effort, Clear to Auscultation Cardiovascular: NL Sounds; No Murmurs; No JVD, RRR, No Edema Abdominal: - - obese, active bowel sounds, non tender. Extremities: No Clubbing, Cyanosis - trace edema. Skin: No Rash or Ulcers Neurological: Alert and Oriented x 3 Lines/Tubes/Other Access: Clean, Dry and Intact Peripheral IV Laboratory Results: 01/13/18 05:43 01/15/18 07:54 INR (Anticoag Therapy) 0.98 (0.77-1.02) 01/13/18 05:43 APTT 28.0 seconds (26.0-36.3) 01/12/18 14:06 Total Bilirubin 0.30 mg/dL (0.2-1.0) 01/12/18 14:06 AST 35 U/L (13-39) 01/12/18 14:06 ALT 70 U/L (7-52) H 01/12/18 14:06 Alkaline Phosphatase 64 U/L (34-104) 01/12/18 14:06 CK-MB (CK-2) 5.4 ng/mL (0.6-6.3) 01/12/18 14:06 B-Natriuretic Peptide 173 pg/mL (-100) H 01/12/18 14:06 Total Protein 6.2 g/dL (6.4-8.9) L 01/12/18 14:06 Albumin 3.5 g/dL (3.2-5.2) 01/12/18 14:06 Globulin 2.7 g/dL (2-4) 01/12/18 14:06 Albumin/Globulin Ratio 1.3 (1-3) 01/12/18 14:06 Triglycerides 209 mg/dL 01/13/18 05:43 Cholesterol 90 mg/dL 01/13/18 05:43 LDL Cholesterol 30 mg/dL 01/13/18 05:43 HDL Cholesterol 17.9 mg/dL 01/13/18 05:43 TSH 5.02 mcIU/mL (0.34-5.60) 01/12/18 14:06 01/12/18 01/12/18 01/12/18 14:06 16:49 19:11 Troponin I 0.00 0.00 0.00 01/12/18 22:53 Troponin I 0.00 Serology: Western blot pending. EKG Data: Monitor: NSR, resting rate in the 60's to 70's now, persistent evidence of SSS with intermittent bradycardia. Assessment/Plan 72 yo with CAD risks of DM, HTN, chol and has PVD lower extremities, possible WILLIAN, centripital obiesity presenting with near syncope, SSS. Lyme serology +, waiting for Western blot, but hospitalist service is not highly suspicious for active Lyme disease. A pacemaker is indicated. I discussed the details of the procedure and risks/benefits with the patient and also discussed on the phone with his daughter. He is amenable to proceeding. Plavix has been off since admission Wednesday evening (on for PVD). KAT could be an anginal equivalent, have recommended a non urgent fina myoview in addtion to changes in lifestyle (smoking cessation, improved diet).
[2018-01-16] MEDS: Heparin VIAL(*) 5000 UNITS/ML VIAL (FIVE THOUSAND) SUBCUT SCH ×3 (06:12→21:39)
[2018-01-16] MEDS: HYDROcodone/ACETAMIN 5-325 MG* 1 TAB PO PRN ×4 (06:12→23:50)
[2018-01-16] MEDS: Levothyroxine TAB* 50 MCG TAB PO SCH (06:12)
[2018-01-16] MEDS: Omeprazole CAP* 20 MG PO SCH (09:00)
[2018-01-16] MEDS: Atorvastatin* 20 MG TAB PO SCH (09:00)
[2018-01-16] MEDS: Multivitamins/Minerals TAB PO SCH (09:00)
[2018-01-16] MEDS: Insulin LISPRO* 1 UNITS UNIT SUBCUT SCH ×3 (09:01→17:29)
[2018-01-16] MEDS: Fluticasone NASAL SPRAY 50MCG* 16 gm SPRAY BTL BOTH NARES SCH (09:01)
[2018-01-16] MEDS: Aspirin 81 mg CHEW TAB* 81 MG TAB.CHEW PO SCH (09:01)
--- NOTE | 2018-01-16 11:23 | PN ---
Subjective Date of Service: 01/16/18 Interval History: Patient seen and examined at bedside. Denies fever, chills, chest discomfort, N/ V/D. Pt states that he continues to have his baseline shortness of breath with minimal improvement. We discussed his Lyme testing results today. Tele: Sinus bradycardia, rate 20-50's with pauses Family History: Unchanged from Admission Social History: Unchanged from Admission Past Medical History: Unchanged from Admission Objective Active Medications: Acetaminophen (Tylenol Tab*) 650 mg PO Q4H PRN Reason: FEVER/PAIN Hydrocodone Bitart/Acetaminophen ([place] 5-325 Tab*) 1 tab PO Q6H PRN Reason: PAIN Al Hydrox/Mg Hydrox/Simethicone (Maalox Plus*) 30 ml PO Q6H PRN Reason: INDIGESTION Aspirin (Aspirin 81 Mg Chew Tab*) 81 mg PO DAILY [facility] Atorvastatin Calcium (Lipitor*) 20 mg PO DAILY [facility] Atropine Sulfate (Atropine 1mg/Ml Inj*) 0.5 mg IV PUSH Q3M PRN Reason: BRADYCARDIA Dextrose (D50w Syringe 50 Ml*) 12.5 gm IV PUSH .FOR FS < 60 - SS PRN Reason: FS < 60 Fluticasone Propionate (Flonase Nasal [place] 50mcg*) 2 spray BOTH NARES DAILY [facility] Guaifenesin (Robitussin*) 5 ml PO Q6H PRN Reason: COUGH Heparin Sodium (Porcine) (Heparin Vial(*)) 5,000 units SUBCUT Q8HR [facility] Insulin Human Lispro (Humalog*) 0 units SUBCUT AC [facility]; Protocol Levothyroxine Sodium (Synthroid Tab*) 50 mcg PO 0600 [facility] Multivitamins/Minerals (Theragran/Minerals Tab*) 1 tab PO DAILY [facility] Omeprazole (Prilosec Cap*) 20 mg PO DAILY [facility] Sodium Chloride (Sodium Chloride 0.65% Nasal [place]*) 1 spray BOTH NARES Q4H PRN Reason: CONGESTION Vital Signs - 8 hr 01/16/18 01/16/18 01/16/18 04:00 04:01 05:00 Temperature Pulse Rate 36 48 54 Respiratory 20 18 20 Rate Blood Pressure 105/57 122/61 (mmHg) O2 Sat by Pulse 97 98 97 Oximetry 01/16/18 01/16/18 01/16/18 05:46 06:00 06:01 Temperature Pulse Rate 45 46 Respiratory 70 20 21 Rate Blood Pressure 127/42 (mmHg) O2 Sat by Pulse 97 97 Oximetry 01/16/18 01/16/18 01/16/18 07:00 07:01 08:00 Temperature 99 F Pulse Rate 48 43 47 Respiratory 16 18 21 Rate Blood Pressure 120/56 (mmHg) O2 Sat by Pulse 97 96 93 Oximetry 01/16/18 01/16/18 01/16/18 08:01 09:00 09:01 Temperature Pulse Rate 45 64 47 Respiratory 24 16 18 Rate Blood Pressure 134/53 162/75 (mmHg) O2 Sat by Pulse 91 92 95 Oximetry Oxygen Devices in Use Now: None Appearance: NAD, sitting up in bed Ears/Nose/Mouth/Throat: Mucous Membranes Moist Respiratory: Symmetrical Chest Expansion and Respiratory Effort, Clear to Auscultation Cardiovascular: NL Sounds; No Murmurs; No JVD, RRR - , slow Extremities: No Edema Skin: No Rash or Ulcers Neurological: Alert and Oriented x 3, NL Muscle Strength and Tone Lines/Tubes/Other Access: Clean, Dry and Intact Peripheral IV - site benign Nutrition: Taking PO's Result Diagrams: 01/13/18 05:43 01/15/18 07:54 Additional Lab and Data: . Microbiology and Other Data: Microbiology 01/12/18 21:30 Nasal Screen MRSA (PCR)([facility]) - Final Nasal Mrsa Not Detected Assess/Plan/Problems-Billing Assessment: Mr. Ferrari is a 72 yo male with PMH significant for PVD s/p right LE stenting, HTN, DM, HLD, and hypothyroidism who presented to the emergency room for shortness of breath and lightheadedness. - Patient Problems (1) Bradycardia Code(s): R00.1 - BRADYCARDIA, UNSPECIFIED SNOMED Code(s): 33270111 Comment: - Asymptomatic at this time - Suspect sick sinus syndrome - Trop 0.00 x3 - Echo without significant findings - Cardiology consult, input appreciated - Suspect he will need a pacemaker, but needs to be off Plavix for 5-7 days prior - Overnight sleep study showed no significant desaturation. - Continue to hold metoprolol - Plan for possible pacemaker placement tomorrow (2) Tick bite Code(s): W57.XXXA - BIT/STUNG BY NONVENOM INSECT & OTH NONVENOM ARTHROPODS, INIT SNOMED Code(s): 34037932 Comment: - Pt with a tick bite in 10/2017 (tick on less than 24 hours), not treated with ABX - Lyme serology positive, Western blot + for 2 bands - Low suspicion for Lyme endocarditis, stopped ceftriaxone - Suspect positive lyme is a false positive (no leukocytosis, afebrile, no joint pain, no erythema migrans). Will not start ABX at this time (3) Hypomagnesemia Code(s): E83.42 - HYPOMAGNESEMIA SNOMED Code(s): 443004930 Comment: - Resolved (4) HTN (hypertension) Code(s): I10 - ESSENTIAL (PRIMARY) HYPERTENSION SNOMED Code(s): 44624304 Comment: - Normotensive, SBP 110-160's - Continue to hold lisinopril (if BP continues to elevate will restart) and metoprolol (5) PVD (peripheral vascular disease) Code(s): I73.9 - PERIPHERAL VASCULAR DISEASE, UNSPECIFIED SNOMED Code(s): 685522713 Comment: - S/P right LE stenting - Hold Plavix for possible procedure (Discussed with FRANCISCA Benton at Dr. Rebolledo's office, ok to hold for 5 days for procedure, then resume YUNG. There is a small risk of stenosis occuring in the stent while off plavix) - Continue ASA and Pletal (6) Diabetes Code(s): E11.9 - TYPE 2 DIABETES MELLITUS WITHOUT COMPLICATIONS SNOMED Code(s) : 18484726 Comment: - Glucose 120-200's - Hold metformin and glipizide - Continue Lispro SS (7) Hypothyroidism Code(s): E03.9 - HYPOTHYROIDISM, UNSPECIFIED SNOMED Code(s): 67871942 Comment: - TSH 5.02 - Continue levothyroxine (8) HLD (hyperlipidemia) Code(s): E78.5 - HYPERLIPIDEMIA, UNSPECIFIED SNOMED Code(s): 35308016 Comment: - Continue statin (9) DVT prophylaxis Code(s): CPI7421 - SNOMED Code(s): 675082354 Comment: - SQ heparin (10) Full code status Code(s): Z78.9 - OTHER SPECIFIED HEALTH STATUS SNOMED Code(s): 361817281 Status and Disposition: Inpatient. Discharge to home when medically stable, suspect he will need to have a pacemaker insertion but needs to be off plavix for at least 5 days.
--- NOTE | 2018-01-16 20:20 | PN ---
Subjective Date of Service: 01/16/18 - cc: dizzy Interval History: No new c/o. No additional questions about pacemaker procedure. Hi wanted to now about apnea evaluation as his daughter had been concerned. Medications Active Medications: Acetaminophen (Tylenol Tab*) 650 mg PO Q4H PRN PRN Reason: FEVER/PAIN Last Admin: 01/14/18 18:53 Dose: 650 mg Hydrocodone Bitart/Acetaminophen ([place] 5-325 Tab*) 1 tab PO Q6H PRN PRN Reason: PAIN Last Admin: 01/16/18 18:46 Dose: 1 tab Al Hydrox/Mg Hydrox/Simethicone (Maalox Plus*) 30 ml PO Q6H PRN PRN Reason: INDIGESTION Aspirin (Aspirin 81 Mg Chew Tab*) 81 mg PO DAILY [facility] Last Admin: 01/16/18 09:01 Dose: 81 mg Atorvastatin Calcium (Lipitor*) 20 mg PO DAILY [facility] Last Admin: 01/16/18 09:00 Dose: 20 mg Atropine Sulfate (Atropine 1mg/Ml Inj*) 0.5 mg IV PUSH Q3M PRN PRN Reason: BRADYCARDIA Dextrose (D50w Syringe 50 Ml*) 12.5 gm IV PUSH .FOR FS < 60 - SS PRN PRN Reason: FS < 60 Fluticasone Propionate (Flonase Nasal [place] 50mcg*) 2 spray BOTH NARES DAILY [facility] Last Admin: 01/16/18 09:01 Dose: Not Given Guaifenesin (Robitussin*) 5 ml PO Q6H PRN PRN Reason: COUGH Last Admin: 01/14/18 09:32 Dose: 5 ml Heparin Sodium (Porcine) (Heparin Vial(*)) 5,000 units SUBCUT Q8HR [facility] Last Admin: 01/16/18 13:37 Dose: 5,000 units Sodium Chloride (Ns 0.9% 100 Ml*) 100 mls @ 100 mls/hr IV ONCE ONE Stop: 01/17/18 06:59 Cefazolin Sodium/Dextrose (Kefzol 2 Gm Premix(*)) 2 gm in 50 mls @ 100 mls/hr IVPB ONCE ONE Stop: 01/17/18 08:29 Insulin Human Lispro (Humalog*) 0 units SUBCUT AC [facility]; Protocol Last Admin: 01/16/18 17:29 Dose: Not Given Levothyroxine Sodium (Synthroid Tab*) 50 mcg PO 0600 [facility] Last Admin: 01/16/18 06:12 Dose: 50 mcg Multivitamins/Minerals (Theragran/Minerals Tab*) 1 tab PO DAILY [facility] Last Admin: 01/16/18 09:00 Dose: 1 tab Omeprazole (Prilosec Cap*) 20 mg PO DAILY [facility] Last Admin: 01/16/18 09:00 Dose: 20 mg Sodium Chloride (Sodium Chloride 0.65% Nasal [place]*) 1 spray BOTH NARES Q4H PRN PRN Reason: CONGESTION Last Admin: 01/14/18 12:02 Dose: 1 spray Objective Vital Signs: Temp Pulse Resp BP Pulse Ox 97.7 F 55 13 145/71 93 01/16/18 19:41 01/16/18 19:00 01/16/18 19:00 01/16/18 19:00 01/16/18 19:00 Oxygen Devices in Use Now: None Appearance: centripitally obese , in bed. , NAD Eyes: No Scleral Icterus, PERRLA Ears/Nose/Mouth/Throat: NL Teeth, Lips, Gums, Clear Oropharnyx, Mucous Membranes Moist Neck: NL Appearance and Movements; NL JVP, Trachea Midline, No Thyroid Enlargement, Masses Respiratory: Symmetrical Chest Expansion and Respiratory Effort, Clear to Auscultation Cardiovascular: NL Sounds; No Murmurs; No JVD, RRR, No Edema Abdominal: - - obese, active bowel sounds, non tender. Extremities: No Clubbing, Cyanosis - trace edema. Skin: No Rash or Ulcers Neurological: Alert and Oriented x 3 Lines/Tubes/Other Access: Clean, Dry and Intact Peripheral IV Laboratory Results: 01/13/18 05:43 01/15/18 07:54 INR (Anticoag Therapy) 0.98 (0.77-1.02) 01/13/18 05:43 APTT 28.0 seconds (26.0-36.3) 01/12/18 14:06 Total Bilirubin 0.30 mg/dL (0.2-1.0) 01/12/18 14:06 AST 35 U/L (13-39) 01/12/18 14:06 ALT 70 U/L (7-52) H 01/12/18 14:06 Alkaline Phosphatase 64 U/L (34-104) 01/12/18 14:06 CK-MB (CK-2) 5.4 ng/mL (0.6-6.3) 01/12/18 14:06 B-Natriuretic Peptide 173 pg/mL (-100) H 01/12/18 14:06 Total Protein 6.2 g/dL (6.4-8.9) L 01/12/18 14:06 Albumin 3.5 g/dL (3.2-5.2) 01/12/18 14:06 Globulin 2.7 g/dL (2-4) 01/12/18 14:06 Albumin/Globulin Ratio 1.3 (1-3) 01/12/18 14:06 Triglycerides 209 mg/dL 01/13/18 05:43 Cholesterol 90 mg/dL 01/13/18 05:43 LDL Cholesterol 30 mg/dL 01/13/18 05:43 HDL Cholesterol 17.9 mg/dL 01/13/18 05:43 TSH 5.02 mcIU/mL (0.34-5.60) 01/12/18 14:06 01/12/18 01/12/18 01/12/18 14:06 16:49 19:11 Troponin I 0.00 0.00 0.00 01/12/18 22:53 Troponin I 0.00 Microbiology 01/12/18 19:11 Aerobic Blood Culture - Preliminary Blood Venous No Growth Day 4 Anaerobic Blood Culture - Preliminary No Growth Day 4 01/12/18 19:17 Aerobic Blood Culture - Preliminary Blood Venous No Growth Day 4 Anaerobic Blood Culture - Preliminary No Growth Day 4 01/12/18 21:30 Nasal Screen MRSA (PCR)([facility]) - Final Nasal Mrsa Not Detected Laboratory Tests 01/12/18 01/12/18 01/12/18 14:06 14:06 14:06 WBC 4.9 RBC 4.83 Hgb 11.8 L Hct 36 L MCV 75 L MCH 25 L MCHC 33 RDW 16 H Plt Count 266 MPV 8.1 Neut % (Auto) 62.2 Lymph % (Auto) 21.7 L Clare % (Auto) 10.9 H Eos % (Auto) 3.9 Baso % (Auto) 1.3 Absolute Neuts (auto) 3.1 Absolute Lymphs (auto) 1.1 Absolute Monos (auto) 0.5 Absolute Eos (auto) 0.2 Absolute Basos (auto) 0.1 Absolute Nucleated RBC 0 Nucleated RBC % 0.1 INR (Anticoag Therapy) 0.97 APTT 28.0 D-Dimer, Quantitative 434 H Sodium 139 Potassium 4.1 Chloride 112 H Carbon Dioxide 20 L Anion Gap 7 BUN 25 H Creatinine 1.07 Est GFR ( Amer) 87.6 Est GFR (Non-Af Amer) 68.1 BUN/Creatinine Ratio 23.4 H Glucose 181 H POC Glucose (mg/dL) Lactic Acid Calcium 9.0 Magnesium 1.6 L Iron 49 L TIBC 360 % Saturation 14 L Unsat Iron Binding 311 Transferrin 257 Total Bilirubin 0.30 AST 35 ALT 70 H Alkaline Phosphatase 64 CK-MB (CK-2) 5.4 Troponin I 0.00 C-Reactive Protein 13.84 H B-Natriuretic Peptide Total Protein 6.2 L Albumin 3.5 Globulin 2.7 Albumin/Globulin Ratio 1.3 Triglycerides Cholesterol LDL Cholesterol HDL Cholesterol TSH 5.02 Free T4 1.25 H Urine Color Urine Appearance Urine pH Ur Specific [place] Urine Protein Urine Ketones Urine Blood Urine Nitrate Urine Bilirubin Urine Urobilinogen Ur Leukocyte Esterase Urine Glucose Lyme Disease Serology Lyme IgG (Western Blot) Lyme IgG Bands Present Lyme IgM (Western Blot) Lyme IgM Bands Present Lyme Disease Interpret 01/12/18 01/12/18 01/12/18 14:06 14:06 16:49 WBC RBC Hgb Hct MCV MCH MCHC RDW Plt Count MPV Neut % (Auto) Lymph % (Auto) Clare % (Auto) Eos % (Auto) Baso % (Auto) Absolute Neuts (auto) Absolute Lymphs (auto) Absolute Monos (auto) Absolute Eos (auto) Absolute Basos (auto) Absolute Nucleated RBC Nucleated RBC % INR (Anticoag Therapy) APTT D-Dimer, Quantitative Sodium Potassium Chloride Carbon Dioxide Anion Gap BUN Creatinine Est GFR ( Amer) Est GFR (Non-Af Amer) BUN/Creatinine Ratio Glucose POC Glucose (mg/dL) Lactic Acid 1.4 Calcium Magnesium Iron TIBC % Saturation Unsat Iron Binding Transferrin Total Bilirubin AST ALT Alkaline Phosphatase CK-MB (CK-2) Troponin I 0.00 C-Reactive Protein B-Natriuretic Peptide 173 H Total Protein Albumin Globulin Albumin/Globulin Ratio Triglycerides Cholesterol LDL Cholesterol HDL Cholesterol TSH Free T4 Urine Color Urine Appearance Urine pH Ur Specific [place] Urine Protein Urine Ketones Urine Blood Urine Nitrate Urine Bilirubin Urine Urobilinogen Ur Leukocyte Esterase Urine Glucose Lyme Disease Serology Lyme IgG (Western Blot) Lyme IgG Bands Present Lyme IgM (Western Blot) Lyme IgM Bands Present Lyme Disease Interpret 01/12/18 01/12/18 01/12/18 19:11 19:12 22:45 WBC RBC Hgb Hct MCV MCH MCHC RDW Plt Count MPV Neut % (Auto) Lymph % (Auto) Clare % (Auto) Eos % (Auto) Baso % (Auto) Absolute Neuts (auto) Absolute Lymphs (auto) Absolute Monos (auto) Absolute Eos (auto) Absolute Basos (auto) Absolute Nucleated RBC Nucleated RBC % INR (Anticoag Therapy) APTT D-Dimer, Quantitative Sodium Potassium Chloride Carbon Dioxide Anion Gap BUN Creatinine Est GFR ( Amer) Est GFR (Non-Af Amer) BUN/Creatinine Ratio Glucose POC Glucose (mg/dL) Lactic Acid Calcium Magnesium Iron TIBC % Saturation Unsat Iron Binding Transferrin Total Bilirubin AST ALT Alkaline Phosphatase CK-MB (CK-2) Troponin I 0.00 C-Reactive Protein B-Natriuretic Peptide Total Protein Albumin Globulin Albumin/Globulin Ratio Triglycerides Cholesterol LDL Cholesterol HDL Cholesterol TSH Free T4 Urine Color Yellow Urine Appearance Clear Urine pH 5.0 Ur Specific Clarence 1.039 H Urine Protein Negative Urine Ketones Negative Urine Blood Negative Urine Nitrate Negative Urine Bilirubin Negative Urine Urobilinogen Negative Ur Leukocyte Esterase Negative Urine Glucose Negative Lyme Disease Serology Positive Lyme IgG (Western Blot) Positive A Lyme IgG Bands Present See comment Lyme IgM (Western Blot) Positive A Lyme IgM Bands Present [id number] Lyme Disease Interpret See comment 01/12/18 01/13/18 01/13/18 22:53 05:43 05:43 WBC 4.6 RBC 4.59 Hgb 11.3 L Hct 35 L MCV 75 L MCH 25 L MCHC 33 RDW 16 H Plt Count 225 MPV 8.3 Neut % (Auto) 68.3 Lymph % (Auto) 18.4 L Clare % (Auto) 9.3 H Eos % (Auto) 3.0 Baso % (Auto) 1.0 Absolute Neuts (auto) 3.2 Absolute Lymphs (auto) 0.9 L Absolute Monos (auto) 0.4 Absolute Eos (auto) 0.1 Absolute Basos (auto) 0 Absolute Nucleated RBC 0 Nucleated RBC % 0 INR (Anticoag Therapy) APTT D-Dimer, Quantitative Sodium 141 Potassium 4.0 Chloride 115 H Carbon Dioxide 20 L Anion Gap 6 BUN 18 Creatinine 1.02 Est GFR ( Amer) 87.1 Est GFR (Non-Af Amer) 72.0 BUN/Creatinine Ratio 17.6 Glucose 95 POC Glucose (mg/dL) Lactic Acid Calcium 8.3 L Magnesium 2.0 Iron Cancelled TIBC Cancelled % Saturation Cancelled Unsat Iron Binding Cancelled Transferrin Cancelled Total Bilirubin AST ALT Alkaline Phosphatase CK-MB (CK-2) Troponin I 0.00 C-Reactive Protein B-Natriuretic Peptide Total Protein Albumin Globulin Albumin/Globulin Ratio Triglycerides 209 Cholesterol 90 LDL Cholesterol 30 HDL Cholesterol 17.9 TSH Free T4 Urine Color Urine Appearance Urine pH Ur Specific [place] Urine Protein Urine Ketones Urine Blood Urine Nitrate Urine Bilirubin Urine Urobilinogen Ur Leukocyte Esterase Urine Glucose Lyme Disease Serology Lyme IgG (Western Blot) Lyme IgG Bands Present Lyme IgM (Western Blot) Lyme IgM Bands Present Lyme Disease Interpret 01/13/18 01/13/18 01/13/18 05:43 11:34 17:01 WBC RBC Hgb Hct MCV MCH MCHC RDW Plt Count MPV Neut % (Auto) Lymph % (Auto) Clare % (Auto) Eos % (Auto) Baso % (Auto) Absolute Neuts (auto) Absolute Lymphs (auto) Absolute Monos (auto) Absolute Eos (auto) Absolute Basos (auto) Absolute Nucleated RBC Nucleated RBC % INR (Anticoag Therapy) 0.98 APTT D-Dimer, Quantitative Sodium Potassium Chloride Carbon Dioxide Anion Gap BUN Creatinine Est GFR ( Amer) Est GFR (Non-Af Amer) BUN/Creatinine Ratio Glucose POC Glucose (mg/dL) 100 133 H Lactic Acid Calcium Magnesium Iron TIBC % Saturation Unsat Iron Binding Transferrin Total Bilirubin AST ALT Alkaline Phosphatase CK-MB (CK-2) Troponin I C-Reactive Protein B-Natriuretic Peptide Total Protein Albumin Globulin Albumin/Globulin Ratio Triglycerides Cholesterol LDL Cholesterol HDL Cholesterol TSH Free T4 Urine Color Urine Appearance Urine pH Ur Specific [place] Urine Protein Urine Ketones Urine Blood Urine Nitrate Urine Bilirubin Urine Urobilinogen Ur Leukocyte Esterase Urine Glucose Lyme Disease Serology Lyme IgG (Western Blot) Lyme IgG Bands Present Lyme IgM (Western Blot) Lyme IgM Bands Present Lyme Disease Interpret 01/16/18 01/16/18 08:35 12:44 WBC RBC Hgb Hct MCV MCH MCHC RDW Plt Count MPV Neut % (Auto) Lymph % (Auto) Clare % (Auto) Eos % (Auto) Baso % (Auto) Absolute Neuts (auto) Absolute Lymphs (auto) Absolute Monos (auto) Absolute Eos (auto) Absolute Basos (auto) Absolute Nucleated RBC Nucleated RBC % INR (Anticoag Therapy) APTT D-Dimer, Quantitative Sodium Potassium Chloride Carbon Dioxide Anion Gap BUN Creatinine Est GFR ( Amer) Est GFR (Non-Af Amer) BUN/Creatinine Ratio Glucose POC Glucose (mg/dL) 134 H 183 H Lactic Acid Calcium Magnesium Iron TIBC % Saturation Unsat Iron Binding Transferrin Total Bilirubin AST ALT Alkaline Phosphatase CK-MB (CK-2) Troponin I C-Reactive Protein B-Natriuretic Peptide Total Protein Albumin Globulin Albumin/Globulin Ratio Triglycerides Cholesterol LDL Cholesterol HDL Cholesterol TSH Free T4 Urine Color Urine Appearance Urine pH Ur Specific [place] Urine Protein Urine Ketones Urine Blood Urine Nitrate Urine Bilirubin Urine Urobilinogen Ur Leukocyte Esterase Urine Glucose Lyme Disease Serology Lyme IgG (Western Blot) Lyme IgG Bands Present Lyme IgM (Western Blot) Lyme IgM Bands Present Lyme Disease Interpret Western blot +, won't download Internal medicine continues to feel false + per notes. EKG Data: Monitor: NSR, resting rate in the 60's to 70's now, persistent episodic/ intermittent bradycardia with no clear triggor. Assessment/Plan 72 yo with CAD risks of DM, HTN, chol and has PVD lower extremities, possible WILLIAN, centripital obiesity presenting with near syncope, SSS. Lyme serology +, Western blot now + including IgM, but hospitalist service not treating per notes. SSS: A pacemaker is indicated. Even if Lyme is contributing, at the patient's age of 72, I continue to recommend pacemaker implantation for SSS, symptomatic bradiycadia in the setting of vascular disease and CAD risks. Plavix has been off since admission Wednesday evening (on for PVD). Pacemaker scheduled for AM with Dr Ivan. ROZ Owens (+) As will be getting perioperative antibiotics, may make sense to treat w/ ceftriaxone instead of Keflex, but can discuss with internal medicine or ID. WILLIAN: overnight oximetry results are unremarkable, did not desaturate. I informed the the patient of these results and outpatient evaluation with formal sleep study would be the next step.
[2018-01-17] MEDS ORDERED: NS 0.9% 100 ML* 100 ML IV ONE (06:00)
[2018-01-17] MEDS: Levothyroxine TAB* 50 MCG TAB PO SCH (06:01)
[2018-01-17] MEDS: HYDROcodone/ACETAMIN 5-325 MG* 1 TAB PO PRN ×3 (06:01→18:21)
[2018-01-17] MEDS: Heparin VIAL(*) 5000 UNITS/ML VIAL (FIVE THOUSAND) SUBCUT SCH ×3 (06:01→21:36)
[2018-01-17] MEDS: Insulin LISPRO* 1 UNITS UNIT SUBCUT SCH ×3 (07:55→17:46)
[2018-01-17] MEDS ORDERED: ceFAZolin 2 GM PREMIX (*) 2 GM/50 ML BAG IVPB ONE (08:00)
[2018-01-17] MEDS: Fluticasone NASAL SPRAY 50MCG* 16 gm SPRAY BTL BOTH NARES SCH (08:30)
[2018-01-17] MEDS: Multivitamins/Minerals TAB PO SCH (08:30)
[2018-01-17] MEDS: Omeprazole CAP* 20 MG PO SCH (08:30)
[2018-01-17] MEDS: Atorvastatin* 20 MG TAB PO SCH (08:31)
[2018-01-17] MEDS: Aspirin 81 mg CHEW TAB* 81 MG TAB.CHEW PO SCH (08:31)
[2018-01-17] MEDS ORDERED: Lidocaine 1% INJ* 10 MG/ML 30 ML SDV ONE (09:26)
[2018-01-17] MEDS ORDERED: ceFAZolin VIAL 1 GM in NS *SYRINGE * * 10 ML ONE (10:00)
[2018-01-17] MEDS ORDERED: Flumazenil* 0.1 MG/ML 5 ML MDV ONE (10:07)
[2018-01-17] MEDS ORDERED: Midazolam* 1 MG/ML 5 ML VIAL (5 MG) ONE (10:07)
[2018-01-17] MEDS ORDERED: Naloxone* 0.4 MG/ML 1 ML VIAL ONE (10:07)
[2018-01-17] MEDS ORDERED: fentaNYL* 50 MCG/ML 2 ML VIAL (100 MCG VIAL) ONE (10:07)
[2018-01-17] MEDS ORDERED: oxyCODONE/Acetamin 5/325 MG* TAB PO PRN (11:12)
--- NOTE | 2018-01-17 15:05 | RAD ---
Indication: Pacemaker placement. Single frontal view of the chest performed at 1143 hours was reviewed. Comparison is made with previous exam dated January 12, 2018. No mediastinal shift is noted. Heart is of normal size and configuration. Lung nunes appear clear. Pacemaker leads are in place. No pneumothorax is noted. IMPRESSION: NO ACTIVE CARDIOPULMONARY DISEASE IS NOTED. PACEMAKER LEADS ARE IN PLACE WITHOUT EVIDENCE OF PNEUMOTHORAX.
[2018-01-17] MEDS: ceFAZolin 1 GM VIAL(*) 1 GM in NS 0.9% 50 ML* 50 ML IVPB SCH (17:47)
--- NOTE | 2018-01-17 20:14 | PN ---
Subjective Date of Service: 01/17/18 Interval History: Patient seen and examined at bedside. Denies fever, chills, shortness of breath , chest discomfort, N/V/D. Pt states that his shortness of breath resolved after his pacemaker was placed. Pt states that he is feeling well and is anxious to go home in the morning. Pt continues to have right jaw pain at the site of a tooth extraction about a month ago, he plans to go to the dentist in the AM when he is discharged. Tele: Sinus dipesh to sinus rhythm, rate 30-70's. Family History: Unchanged from Admission Social History: Unchanged from Admission Past Medical History: Unchanged from Admission Objective Active Medications: Acetaminophen (Tylenol Tab*) 650 mg PO Q4H PRN PRN Reason: FEVER/PAIN Last Admin: 01/14/18 18:53 Dose: 650 mg Hydrocodone Bitart/Acetaminophen ([place] 5-325 Tab*) 1 tab PO Q6H PRN PRN Reason: PAIN Last Admin: 01/17/18 18:21 Dose: 1 tab Al Hydrox/Mg Hydrox/Simethicone (Maalox Plus*) 30 ml PO Q6H PRN PRN Reason: INDIGESTION Aspirin (Aspirin 81 Mg Chew Tab*) 81 mg PO DAILY [facility] Last Admin: 01/17/18 08:31 Dose: 81 mg Atorvastatin Calcium (Lipitor*) 20 mg PO DAILY [facility] Last Admin: 01/17/18 08:31 Dose: 20 mg Atropine Sulfate (Atropine 1mg/Ml Inj*) 0.5 mg IV PUSH Q3M PRN PRN Reason: BRADYCARDIA Dextrose (D50w Syringe 50 Ml*) 12.5 gm IV PUSH .FOR FS < 60 - SS PRN PRN Reason: FS < 60 Fluticasone Propionate (Flonase Nasal [place] 50mcg*) 2 spray BOTH NARES DAILY [facility] Last Admin: 01/17/18 08:30 Dose: Not Given Guaifenesin (Robitussin*) 5 ml PO Q6H PRN PRN Reason: COUGH Last Admin: 01/14/18 09:32 Dose: 5 ml Heparin Sodium (Porcine) (Heparin Vial(*)) 5,000 units SUBCUT Q8HR [facility] Last Admin: 01/17/18 14:57 Dose: 5,000 units Cefazolin Sodium 1 gm/ Sodium (Chloride) 50 mls @ 200 mls/hr IVPB Q8H [facility] Stop: 01/18/18 10:14 Last Admin: 01/17/18 17:47 Dose: 200 mls/hr Insulin Human Lispro (Humalog*) 0 units SUBCUT [facility]; Protocol Last Admin: 01/17/18 17:46 Dose: 2 unit Levothyroxine Sodium (Synthroid Tab*) 50 mcg PO 0600 [facility] Last Admin: 01/17/18 06:01 Dose: 50 mcg Multivitamins/Minerals (Theragran/Minerals Tab*) 1 tab PO DAILY [facility] Last Admin: 01/17/18 08:30 Dose: 1 tab Omeprazole (Prilosec Cap*) 20 mg PO DAILY [facility] Last Admin: 01/17/18 08:30 Dose: 20 mg Oxycodone/Acetaminophen (Percocet 5/325 Tab*) 1 tab PO Q4H PRN PRN Reason: PAIN Sodium Chloride (Sodium Chloride 0.65% Nasal [place]*) 1 spray BOTH NARES Q4H PRN PRN Reason: CONGESTION Last Admin: 01/14/18 12:02 Dose: 1 spray Vital Signs - 8 hr 01/17/18 01/17/18 01/17/18 12:12 12:31 13:00 Temperature Pulse Rate 60 60 Respiratory 18 15 17 Rate Blood Pressure 157/77 152/72 (mmHg) O2 Sat by Pulse 94 94 94 Oximetry 01/17/18 01/17/18 01/17/18 13:05 13:31 13:42 Temperature Pulse Rate 81 Respiratory 20 22 Rate Blood Pressure 141/58 (mmHg) O2 Sat by Pulse 93 94 Oximetry 01/17/18 01/17/18 01/17/18 14:00 14:30 14:42 Temperature Pulse Rate 77 74 Respiratory 20 24 Rate Blood Pressure 134/71 145/83 (mmHg) O2 Sat by Pulse 94 94 95 Oximetry 01/17/18 01/17/18 01/17/18 15:00 15:38 16:00 Temperature 98.7 F Pulse Rate 60 60 Respiratory 20 21 Rate Blood Pressure 143/77 155/88 (mmHg) O2 Sat by Pulse 93 94 Oximetry 01/17/18 01/17/18 01/17/18 17:00 18:00 18:01 Temperature Pulse Rate 60 60 60 Respiratory 14 18 17 Rate Blood Pressure 162/81 161/80 (mmHg) O2 Sat by Pulse 94 95 95 Oximetry 01/17/18 19:14 Temperature 97.9 F Pulse Rate 59 Respiratory 20 Rate Blood Pressure 100/81 (mmHg) O2 Sat by Pulse 96 Oximetry Oxygen Devices in Use Now: None Appearance: NAD, sitting up in bed Ears/Nose/Mouth/Throat: Mucous Membranes Moist, - - No redness or erythema seen in right lower jaw Respiratory: Symmetrical Chest Expansion and Respiratory Effort, Clear to Auscultation Cardiovascular: NL Sounds; No Murmurs; No JVD, RRR Abdominal: NL Sounds; No Tenderness; No Distention Extremities: No Edema Skin: No Rash or Ulcers Neurological: Alert and Oriented x 3, NL Muscle Strength and Tone Lines/Tubes/Other Access: Clean, Dry and Intact Peripheral IV - site benign Nutrition: Taking PO's Result Diagrams: 01/13/18 05:43 01/15/18 07:54 Additional Lab and Data: . Microbiology and Other Data: Microbiology 01/12/18 21:30 Nasal Screen MRSA (PCR)(HERMAN) - Final Nasal Mrsa Not Detected Assess/Plan/Problems-Billing Assessment: Mr. Ferrari is a 72 yo male with PMH significant for PVD s/p right LE stenting, HTN, DM, HLD, and hypothyroidism who presented to the emergency room for shortness of breath and lightheadedness. - Patient Problems (1) Bradycardia Code(s): R00.1 - BRADYCARDIA, UNSPECIFIED SNOMED Code(s): 63644775 Comment: - S/P pacemaker, POD - Suspect sick sinus syndrome - Trop 0.00 x3 - Echo without significant findings - Cardiology consult, input appreciated - Overnight sleep study showed no significant desaturation. (2) Tick bite Code(s): W57.XXXA - BIT/STUNG BY NONVENOM INSECT & OTH NONVENOM ARTHROPODS, INIT SNOMED Code(s): 87110085 Comment: - Pt with a tick bite in 10/2017 (tick on less than 24 hours), not treated with ABX - Lyme serology positive, Western blot + for 2 bands - Low suspicion for Lyme endocarditis, stopped ceftriaxone - Suspect positive lyme is a false positive (no leukocytosis, afebrile, no joint pain, no erythema migrans). - Side consulted ID and they recommend no ABX at this time (3) Hypomagnesemia Code(s): E83.42 - HYPOMAGNESEMIA SNOMED Code(s): 809116576 Comment: - Resolved (4) HTN (hypertension) Code(s): I10 - ESSENTIAL (PRIMARY) HYPERTENSION SNOMED Code(s): 95961647 Comment: - Normotensive, SBP 110-160's - Continue to hold metoprolol - Resume lisinopril in the AM (5) PVD (peripheral vascular disease) Code(s): I73.9 - PERIPHERAL VASCULAR DISEASE, UNSPECIFIED SNOMED Code(s): 517944077 Comment: - S/P right LE stenting - Holding Plavix for possible procedure (Discussed with FRANCISCA Benton at Dr. Rebolledo 's office, ok to hold for 5 days for procedure, then resume YUNG. There is a small risk of stenosis occuring in the stent while off plavix) - Continue ASA and Pletal - Resume Plavix YUNG after pacemaker per cardiology (6) Diabetes Code(s): E11.9 - TYPE 2 DIABETES MELLITUS WITHOUT COMPLICATIONS SNOMED Code(s) : 24324217 Comment: - Glucose 100-180's - Hold metformin and glipizide - Continue Lispro SS (7) Hypothyroidism Code(s): E03.9 - HYPOTHYROIDISM, UNSPECIFIED SNOMED Code(s): 00704796 Comment: - TSH 5.02 - Continue levothyroxine (8) HLD (hyperlipidemia) Code(s): E78.5 - HYPERLIPIDEMIA, UNSPECIFIED SNOMED Code(s): 90259512 Comment: - Continue statin (9) DVT prophylaxis Code(s): SVW2441 - SNOMED Code(s): 851434280 Comment: - SQ heparin (10) Full code status Code(s): Z78.9 - OTHER SPECIFIED HEALTH STATUS SNOMED Code(s): 842013412 Status and Disposition: Inpatient. Discharge to home when medically stable, possibly in the AM.
[2018-01-18] MEDS: HYDROcodone/ACETAMIN 5-325 MG* 1 TAB PO PRN ×2 (02:09→08:58)
[2018-01-18] MEDS: ceFAZolin 1 GM VIAL(*) 1 GM in NS 0.9% 50 ML* 50 ML IVPB SCH ×2 (02:10→10:15)
[2018-01-18] MEDS: Heparin VIAL(*) 5000 UNITS/ML VIAL (FIVE THOUSAND) SUBCUT SCH (06:19)
[2018-01-18] MEDS: Levothyroxine TAB* 50 MCG TAB PO SCH (06:19)
--- NOTE | 2018-01-18 08:27 | RAD ---
Indication: Status post device implant. 2 views of the chest demonstrates no mediastinal shift. Heart is of normal size and configuration. Right base atelectasis is noted. Atelectasis in the right base is noted. Pacemaker leads are in place. Pacemaker leads are in place. IMPRESSION: Suggestion of atelectasis in the right lung base.
[2018-01-18] MEDS: Insulin LISPRO* 1 UNITS UNIT SUBCUT SCH ×2 (08:45→12:37)
[2018-01-18 08:47] VITALS: BP 140/67
[2018-01-18] MEDS: Aspirin 81 mg CHEW TAB* 81 MG TAB.CHEW PO SCH (08:52)
[2018-01-18] MEDS: Omeprazole CAP* 20 MG PO SCH (08:52)
[2018-01-18] MEDS: Fluticasone NASAL SPRAY 50MCG* 16 gm SPRAY BTL BOTH NARES SCH (08:52)
[2018-01-18] MEDS: Atorvastatin* 20 MG TAB PO SCH (08:52)
[2018-01-18] MEDS: Multivitamins/Minerals TAB PO SCH (08:52)
--- NOTE | 2018-01-18 09:34 | PN ---
Subjective Date of Service: 01/18/18 Interval History: Patient seen and examined at bedside. Denies fever, chills, shortness of breath , chest discomfort, N/V/D. Pt continues to have left lower jaw pain at tooth extraction site. He plans to go to the dentist today after discharge. Tele: Sinus rhythm to paced, rate 60-70's Family History: Unchanged from Admission Social History: Unchanged from Admission Past Medical History: Unchanged from Admission Objective Active Medications: Acetaminophen (Tylenol Tab*) 650 mg PO Q4H PRN Reason: FEVER/PAIN Hydrocodone Bitart/Acetaminophen ([place] 5-325 Tab*) 1 tab PO Q6H PRN Reason: PAIN Al Hydrox/Mg Hydrox/Simethicone (Maalox Plus*) 30 ml PO Q6H PRN Reason: INDIGESTION Aspirin (Aspirin 81 Mg Chew Tab*) 81 mg PO DAILY [facility] Atorvastatin Calcium (Lipitor*) 20 mg PO DAILY [facility] Atropine Sulfate (Atropine 1mg/Ml Inj*) 0.5 mg IV PUSH Q3M PRN Reason: BRADYCARDIA Dextrose (D50w Syringe 50 Ml*) 12.5 gm IV PUSH .FOR FS < 60 - SS PRN Reason: FS < 60 Fluticasone Propionate (Flonase Nasal [place] 50mcg*) 2 spray BOTH NARES DAILY [facility] Guaifenesin (Robitussin*) 5 ml PO Q6H PRN Reason: COUGH Heparin Sodium (Porcine) (Heparin Vial(*)) 5,000 units SUBCUT Q8HR [facility] Cefazolin Sodium 1 gm/ Sodium (Chloride) 50 mls @ 200 mls/hr IVPB Q8H [facility] Stop: 01/18/18 10:14 Insulin Human Lispro (Humalog*) 0 units SUBCUT [facility]; Protocol Levothyroxine Sodium (Synthroid Tab*) 50 mcg PO 0600 [facility] Multivitamins/Minerals (Theragran/Minerals Tab*) 1 tab PO DAILY [facility] Omeprazole (Prilosec Cap*) 20 mg PO DAILY [facility] Oxycodone/Acetaminophen (Percocet 5/325 Tab*) 1 tab PO Q4H PRN Reason: PAIN Sodium Chloride (Sodium Chloride 0.65% Nasal [place]*) 1 spray BOTH NARES Q4H PRN Reason: CONGESTION Vital Signs - 8 hr 01/18/18 01/18/18 01/18/18 02:09 03:42 04:15 Temperature 99.4 F Pulse Rate 59 Respiratory 18 18 18 Rate Blood Pressure 128/66 (mmHg) O2 Sat by Pulse 98 Oximetry 01/18/18 01/18/18 07:25 08:58 Temperature 97.8 F Pulse Rate 59 Respiratory 16 18 Rate Blood Pressure 140/67 (mmHg) O2 Sat by Pulse 95 Oximetry Oxygen Devices in Use Now: None Appearance: NAD, sitting up in bed Ears/Nose/Mouth/Throat: Mucous Membranes Moist Respiratory: Symmetrical Chest Expansion and Respiratory Effort, Clear to Auscultation Cardiovascular: NL Sounds; No Murmurs; No JVD, RRR Abdominal: NL Sounds; No Tenderness; No Distention Extremities: No Edema Skin: No Rash or Ulcers Neurological: Alert and Oriented x 3, NL Muscle Strength and Tone Lines/Tubes/Other Access: Clean, Dry and Intact Peripheral IV - site benign Nutrition: Taking PO's Result Diagrams: 01/13/18 05:43 01/15/18 07:54 Additional Lab and Data: . Microbiology and Other Data: Microbiology 01/12/18 21:30 Nasal Screen MRSA (PCR)([facility]MAN) - Final Nasal Mrsa Not Detected Assess/Plan/Problems-Billing Assessment: Mr. Ferrari is a 72 yo male with PMH significant for PVD s/p right LE stenting, HTN, DM, HLD, and hypothyroidism who presented to the emergency room for shortness of breath and lightheadedness. - Patient Problems (1) Bradycardia Code(s): R00.1 - BRADYCARDIA, UNSPECIFIED SNOMED Code(s): 39356199 Comment: - S/P pacemaker, POD #1 - Sick sinus syndrome - Trop 0.00 x3 - Echo without significant findings - Cardiology consult, input appreciated - Overnight sleep study showed no significant desaturation. (2) Tick bite Code(s): W57.XXXA - BIT/STUNG BY NONVENOM INSECT & OTH NONVENOM ARTHROPODS, INIT SNOMED Code(s): 32773616 Comment: - Pt with a tick bite in 10/2017 (tick on less than 24 hours), not treated with ABX - Lyme serology positive, Western blot + for 2 bands - Low suspicion for Lyme endocarditis, stopped ceftriaxone - Suspect positive lyme is a false positive (no leukocytosis, afebrile, no joint pain, no erythema migrans). - Side consulted ID and they recommend no ABX at this time (3) Hypomagnesemia Code(s): E83.42 - HYPOMAGNESEMIA SNOMED Code(s): 647868203 Comment: - Resolved (4) HTN (hypertension) Code(s): I10 - ESSENTIAL (PRIMARY) HYPERTENSION SNOMED Code(s): 87881976 Comment: - Normotensive, SBP 100-150's - Continue to hold metoprolol - Continue lisinopril (5) PVD (peripheral vascular disease) Code(s): I73.9 - PERIPHERAL VASCULAR DISEASE, UNSPECIFIED SNOMED Code(s): 384105574 Comment: - S/P right LE stenting - Holding Plavix for possible procedure (Discussed with FRANCISCA Benton at Dr. Rebolledo 's office, ok to hold for 5 days for procedure, then resume YUNG. There is a small risk of stenosis occuring in the stent while off plavix) - Continue ASA and Pletal - Resume Plavix today (6) Diabetes Code(s): E11.9 - TYPE 2 DIABETES MELLITUS WITHOUT COMPLICATIONS SNOMED Code(s) : 30624766 Comment: - Glucose 100-160's - Resume metformin and glipizide (7) Hypothyroidism Code(s): E03.9 - HYPOTHYROIDISM, UNSPECIFIED SNOMED Code(s): 98374082 Comment: - TSH 5.02 - Continue levothyroxine (8) HLD (hyperlipidemia) Code(s): E78.5 - HYPERLIPIDEMIA, UNSPECIFIED SNOMED Code(s): 67287379 Comment: - Continue statin (9) DVT prophylaxis Code(s): SSI8462 - SNOMED Code(s): 987670443 Comment: - SQ heparin (10) Full code status Code(s): Z78.9 - OTHER SPECIFIED HEALTH STATUS SNOMED Code(s): 813520008 Status and Disposition: Inpatient. Stable for discharge to home today.
[2018-01-18] MEDS ORDERED: Lisinopril TAB* 10 MG PO SCH (10:00)
--- NOTE | 2018-01-18 14:41 | OP ---
CC: Dr. Ulloa; Dr. Serrano OPERATIVE NOTE: DATE OF OPERATION: 01/17/18 DATE OF : 47 SURGEON: Jose Ivan MD ANESTHESIA: Local anesthesia with conscious sedation. PRE-OP DIAGNOSES: Sick sinus syndrome, bradycardia. POST-OP DIAGNOSES: Sick sinus syndrome, bradycardia. OPERATIVE PROCEDURE: Dual-chamber pacemaker implantation. ESTIMATED BLOOD LOSS: Nil. COMPLICATIONS: None. INDICATIONS: The patient is a 72-year-old gentleman who was admitted to the hospital with shortness of breath and near syncopal episodes. He was diagnosed with severe bradycardia and sick sinus syndro me. Permanent pacemaker implantation was recommended. DESCRIPTION OF PROCEDURE: The patient was brought to the operating room in a fasting state. Informe d consent had been obtained prior to the procedure. All labs were reviewed. The patient was placed supine on the operating room table. His left deltopectoral area was cleaned and draped in the usual f ashion. 1% lidocaine was used for local anesthesia. Using ultrasound guidance, the axillary vein wa s entered by a modified Seldinger technique and a guidewire was placed. A second guidewire was place d in the same technique. A 3-cm incision was made in the pectoral area with blunt dissection and was carried down to the pectoral fascia. A pocket was fashioned for the pacemaker. Over the first guid ewire, a 7-[place] sheath introducer was placed, through which a right ventricular lead was advanced t o the RV apex. The right ventricular lead is a Medtronic model 5076, serial #[id number] and R-wave s ensitivity 6.7, impedance 1130 ohms, threshold 1 volt at 0.5 msec. The ventricular lead was sutured to the pectoral fascia. Over the second guidewire, a 7-[place] sheath introducer was placed through w hich a right atrial lead was advanced to the high right atrium. The right atrial lead is a Medtronic model 5076, serial #[id number] and had a P-wave sensitivity of 3.8, impedance 503 ohms, threshold 1 volt at 0.5 msec. The atrial lead was sutured to the pectoral fascia. The pocket was flushed with a ntibiotic infused normal saline. A generator was attached appropriately to the atrial and ventricular lead. The generator is a Medtronic model WIDR01, serial #[id number]. The device was placed in the pocket. The surgical incision was closed in 3 layers. The patient was returned to the holding area in stable condition. [id number]/[facility] #: [id number]
[2018-01-18] MEDS ORDERED: Cilostazol TAB* 100 MG PO SCH (21:00)
--- NOTE | 2018-01-19 14:34 | DS ---
CC: Dr. Jayleen Ulloa; Dr. Jose Ivan * DISCHARGE SUMMARY: DATE OF ADMISSION: 01/12/18 DATE OF DISCHARGE: 01/18/18 ATTENDING PHYSICIAN: Dr. Trenton Monson * (dictated by Conor Mena NP). PRIMARY CARE PROVIDER: Dr. Jayleen Ulloa. PRIMARY DIAGNOSES: 1. Sick sinus syndrome, bradycardia. 2. Status post pacemaker insertion. 3. Jaw pain at tooth extraction site. 4. Tick bite, low suspicion for Lyme disease. 5. Hypomagnesemia, resolved. 6. Atelectasis. SECONDARY DIAGNOSIS: 1. Hypertension. 2. Peripheral vascular disease. 3. Diabetes. 4. Hypothyroidism. 5. Hyperlipidemia. CONSULTATIONS WHILE IN THE HOSPITAL: Dr. Rajesh Serrano, Dr. Haven Riggs, and Dr. Jose Ivan with Cardiology. PROCEDURES WHILE IN THE HOSPITAL: Status post dual-chamber pacemaker implantation on 01/17/[address] Jose Ivan. STUDIES WHILE IN THE HOSPITAL: Chest x-ray on 01/12/18. Radiologist's impression: No active disease. Chest thoracic CTA on 01/12/18. Radiologist's impression: No CT evidence of acute pulmonary embolic disease. Emphysema. Cholelithiasis. Transthoracic echocardiogram on 01/13/18. News Clerk's conclusion: The study is technically limited due to poor parasternal windows. Mild concentric left ventricular hypertrophy was observed. Global left ventricular wall motion and contractility are within normal limits. Left ventricular systolic function is at lower limits of normal. The estimated ejection fraction is 50% to 55%. The left atrium is mildly dilated, right ventricle is mildly dilated, right atrium is mildly dilated. There is trace aortic regurgitation, no evidence of aortic stenosis, trace mitral regurgitation. Mild dilation of the ascending aorta. Mild dilation of the aortic root. No reports of prior studies are offered for comparison. A brief note of a significant bradycardic rate is noted. The rhythm strip is not of good quality enough to definitively analyze the precise rhythm. Overnight pulse oximetry study showed a longest period overnight on 01/13/18 to 01/14/18. The longest continuous time with saturation less than 88% was approximately 2 minutes which started at 01/14/18 at 0054. A desaturation event was defined as a decrease of saturation by 4 or more. No events were excluded due to artifact. There were 20 desaturations over 3 minutes duration. There were 123 desaturation events of less than 3 minutes duration during which the highest was 95.9%. The mean low was 90.8%. Chest x-ray on 01/17/18. Radiologist's impression: No active cardiopulmonary disease is noted. Pacemaker leads are in place without evidence of pneumothorax. Chest x-ray on 01/18/18. Radiologist's impression: Suggests atelectasis in the right lung base. DISCHARGE MEDICATIONS: New home medications: 1. Acetaminophen 650 mg oral every 4 hours as needed for fever or pain. 2. Met[place] 5/325 one tablet oral every 6 hours as needed for pain. 3. Keflex 250 mg oral 3 times daily for 3 days. Continued home medications: 1. Pletal 100 mg oral twice daily. 2. Aspirin 81 mg oral daily. 3. Metformin 1000 mg oral twice daily. 4. Plavix 75 mg oral daily. 5. Januvia 50 mg oral twice daily. 6. [place]-3-6-9 at 1200 mg oral daily. 7. Simvastatin 40 mg oral daily. 8. Omeprazole 20 mg oral daily. 9. TriCor 145 mg oral daily. 10. Multivitamin 1 tablet oral daily. 11. Lisinopril 40 mg oral daily. 12. Levothyroxine 50 mcg oral daily. 13. Glipizide 10 mg oral b.i.d. 14. Flonase nasal spray 2 sprays to both nares daily. Discontinued home medication: Metoprolol tartrate HISTORY OF PRESENT ILLNESS/HOSPITAL COURSE: Mr. Ferrari is a 72-year-old male with past medical history significant for peripheral vascular disease status post right lower extremity stenting, hypertension, diabetes, hypothyroidism, and hyperlipidemia who presented to the emergency room with complaints of a 4- day history of lightheadedness and shortness of breath. While in the emergency room, the patient was found to be bradycardic with a heart rate in the 20s to 50s, this was noted to be sinus bradycardia and no blocks were observed. Due to this underwent a CTA of his chest without acute findings. A chest x-ray without acute findings. His labs were unremarkable. Hospitalists were asked to evaluate the patient for admission. While in the hospital, due to his bradycardia, his beta-yasmeen was held. He continued to be bradycardic as well he had sick sinus syndrome and needed to have a pacemaker. Additionally in the differential was a possible Lyme endocarditis as this typically affects the younger population and the patient had no blocks and was sinus bradycardic, he empiric antibiotics were withheld. His Lyme serology just came back positive and he was positive for 2 antibodies. This was discussed with ID who felt that the patient likely did not have an acute Lyme infection at this time. So, further antibiotics were held. The patient had an overnight sleep study showing no significant desaturations consistent with no signs of sleep apnea. The patient had hypomagnesemia that resolved. He was normotensive during his stay with the metoprolol held. He had Plavix held for 5 days and this was resumed today for his peripheral vascular disease, it is because it is a bit more controlled. The patient complained of some right jaw pain at the site of tooth extraction within the last few months. He had bone exposed and he had plans to go see his dentist at discharge. The patient's shortness of breath resolved after his pacemaker was placed. He was noted to have atelectasis on chest x-ray from today. He was encouraged to cough and deep breath. Mr. Ferrari is stable for discharge today. Vital signs are as follows: Temperature 97.8, heart rate 59, respiratory rate 16, O2 sat 95% on room air, blood pressure 140/67. DISCHARGE PLAN: Mr. Ferrari will be discharged to home. Activity as tolerated. He has been encouraged to do light activity and limit the use of his left arm. In regard to his sick sinus syndrome and bradycardia, he is status post dual- chamber pacemaker placement by Dr. Ivan on 01/17/18. Been asked to followup with Dr. Ivan next week on 01/25/18 at 2 p.m. His follow up appointment with his primary care provider Dr. Jayleen Ulloa is on 01/27/18 at 4 p.m. He has been given pacemaker instructions. In regard to his tick bite, it is not felt that he has active Lyme and needs any antibiotics. Also, he has been continued on Keflex 3 times a day for 3 days. I have prescribed him some Metter for his tooth pain until he is able to get to his dentist. I checked [employer] with reference number [id number]. The patient has been asked to return to the emergency room for any chest pain or shortness of breath. The patient has been resumed on his other usual home medications. This is a summarized report of a complex medical history and hospital stay. For further details, please see the entire medical record. TIME SPENT: Time for this discharge was approximately 50 minutes, greater than half of that was spent [id number] with the patient discussing discharge plans and instructions. CONDITION ON DISCHARGE: Stable. CONOR BARLOW, FRANCISCA [id number]/[facility] #: [id number] JL
== END 2018-01-18 12:51 | disposition home or self-care (01) | DRG 243 ==
LOC: ED 13:31 → ICU 18:46 → MEDTELE 01-17 20:50
PROVIDERS: ADMIT Internal Medicine; ATTEND Student in an Organized Health Care Education/Training Program
PROC: 02H63JZ Insertion of Pacemaker Lead into Right Atrium, Percutaneous Approach (ICD-10-PCS; 2018-01-17)
PROC: 02HK3JZ Insertion of Pacemaker Lead into Right Ventricle, Percutaneous Approach (ICD-10-PCS; 2018-01-17)
PROC: 0JH606Z Insertion of Pacemaker, Dual Chamber into Chest Subcutaneous Tissue and Fascia, Open Approach (ICD-10-PCS; principal; 2018-01-17 08:00)
DX: I49.5 Sick sinus syndrome (principal); J98.11 Atelectasis; I10 Essential (primary) hypertension; E11.40 Type 2 diabetes mellitus with diabetic neuropathy, unspecified; F17.210 Nicotine dependence, cigarettes, uncomplicated; E03.9 Hypothyroidism, unspecified; E78.5 Hyperlipidemia, unspecified; E11.51 Type 2 diabetes mellitus with diabetic peripheral angiopathy without gangrene; D64.89 Other specified anemias; E66.9 Obesity, unspecified; R68.84 Jaw pain; J43.9 Emphysema, unspecified; I44.0 Atrioventricular block, first degree; E83.42 Hypomagnesemia; I08.0 Rheumatic disorders of both mitral and aortic valves; K80.20 Calculus of gallbladder without cholecystitis without obstruction; I77.819 Aortic ectasia, unspecified site; Z79.02 Long term (current) use of antithrombotics/antiplatelets; Z95.828 Presence of other vascular implants and grafts; Z83.3 Family history of diabetes mellitus; Z80.42 Family history of malignant neoplasm of prostate; Z72.89 Other problems related to lifestyle; Z79.82 Long term (current) use of aspirin; Z79.4 Long term (current) use of insulin; Z68.29 Body mass index [BMI] 29.0-29.9, adult; Z91.018 Allergy to other foods
CPT/HCPCS: 33208; 36415; 71045; 71046; 71275; 80048; 80053; 80061; 81003; 82553; 83540; 83550; 83605; 83735; 83880; 84439; 84443; 84484; 85025; 85379; 85610; 85730; 86140; 86617; 86618; 87040; 87641; 93005; 93306; 94762; 99156; 99157; 99285; 99406; A9270-GY; C1785; C1898; J0461; J0690; J0696; J1644; J2250; J2310; J3010; J3475; Q9967

== ENCOUNTER 2018-08-17 06:53 | Day surgery (SDC) | payer MEDICARE, OTHER ==
[~2018-08-17 06:53] MED LIST: Acetaminophen TAB* 325 MG PO PRN; Buffered Lidocaine 1% SYRIN* 1 ML/SYRINGE INTRADERM ONE
[2018-08-17] MEDS ORDERED: Midazolam* 1 MG/ML 2 ML VIAL (2 MG) ONE ×2 (08:41→08:52)
[2018-08-17 09:21] VITALS: BP 121/76
--- NOTE | 2018-08-17 09:35 | OP ---
DATE OF OPERATION: 08/17/18 [facility] DATE OF : 47 SURGEON: Lionel Mcbride MD. PREOPERATIVE DIAGNOSIS: Cataract, left eye. POSTOPERATIVE DIAGNOSIS: Cataract, left eye. OPERATIVE PROCEDURE: Extracapsular cataract extraction with intraocular lens implant, left eye. DESCRIPTION OF PROCEDURE: The patient was brought to the operating room after being given 1/2% Alcaine with epinephrine drops in the preoperative area. The eye was prepped and draped in the usual sterile fashion. Sterile drape and eyelid speculum were placed. Again, topical 1/2% Alcaine with epinephrine was given. A paracentesis incision was made at the 3 o'clock position with the No.75 blade. Clear cornea incision 2.2 x 2.2-mm was created at the 6 o'clock position starting at the anterior limbus using the 2.2-mm keratome. The anterior chamber was irrigated with 0.4 mL of 1% non-preservative intracameral lidocaine and filled with DisCoVisc. A capsulorrhexis was completed using the cystotome and the Utrata forceps. Hydrodissection was performed with balanced salt solution. The lens nucleus was removed with the Phacoemulsification handpiece without incident. Cortex was removed with the irrigation-aspiration handpiece. The capsular bag was re-inflated using DisCoVisc and an [id number] 16.5 implant was inserted with the shooter. The pupils are very small. Malyugin ring was used to dilate the pupil prior to capsulorrhexis, removed after insertion of the lens, indication for complex cataract surgery. Pupil abnormalities requiring pupil dilation device. All lens measurements was confirmed with ORA. The irrigation-aspiration handpiece was used to remove all residual DisCoVisc. The eye was refilled with balanced salt solution and the wound checked and found to be watertight. Topical Maxitrol drops were given. [id number]/[facility] #: [id number] MTDD
[2018-08-17] MEDS ORDERED: Lidocaine 2% EPI 1:200000 MPF*10-20 ML VIAL ONE (10:40)
[2018-08-17] MEDS ORDERED: Cyclopentolate 1% OPTH.SOL* 2 ML BTL ONE (10:40)
[2018-08-17] MEDS ORDERED: Lidocaine 1%* 5 ML VIAL ONE (10:40)
[2018-08-17] MEDS ORDERED: Neomycin/Polymy/Dex OPTH.SUSP* MAXITROL 0.1% 5 ML ONE (10:40)
[2018-08-17] MEDS ORDERED: acetaZOLAMIDE TAB* 250 MG ONE (10:40)
[2018-08-17] MEDS ORDERED: Phenylephrine 2.5% OPTH.SOL* 2 ML BTL ONE (10:41)
[2018-08-17] MEDS ORDERED: Proparacaine 0.5% OPHTH.SOL* 15 ML BTL ONE (10:41)
[2018-08-17] MEDS ORDERED: Povidone Iodine 5% OPTH* 30 ML BTL ONE (10:41)
[2018-08-17] MEDS ORDERED: Ketorolac 0.5% OPHTH (NF) 0.5 % 5 ML BTL ONE (10:41)
== END 2018-08-17 09:17 | disposition home or self-care (01) ==
LOC: OREAST 06:53
PROVIDERS: ATTEND Specialist
DX: H25.812 Combined forms of age-related cataract, left eye (principal); E11.9 Type 2 diabetes mellitus without complications; Z79.84 Long term (current) use of oral hypoglycemic drugs; H47.321 Drusen of optic disc, right eye; E03.9 Hypothyroidism, unspecified; Z72.0 Tobacco use; Z95.0 Presence of cardiac pacemaker; I10 Essential (primary) hypertension; E78.5 Hyperlipidemia, unspecified; I73.9 Peripheral vascular disease, unspecified
CPT/HCPCS: A9270-GY; J2250; V2632

== ENCOUNTER 2019-01-12 11:13 | Emergency (ER) | payer MEDICARE, OTHER ==
[2019-01-12 11:38] VITALS: BP 126/62
--- NOTE | 2019-01-12 12:00 | UC ---
General HPI - HPI Summary HPI Summary: Has had red itchy right eye for the past week. Concerned because he just had lasix done on his left eye and woke up this morning and his left eye was slightly itchy as well and thought it should get checked out. ALso noticed some right light swelling No fevers. No URI symptoms. Has chronic nasal congestion from allergies. Does not think this has affected his vision Meds: reviewed - History of Current Complaint Chief Complaint: UCEye Stated Complaint: EYE COMPLAINT Time Seen by Provider: 01/12/19 11:45 Pain Intensity: 8 - Allergy/Home Medications Allergies/Adverse Reactions: Allergies Allergy/AdvReac Type Severity Reaction Status Date / Time onion Allergy NAUSEA, Verified 01/12/19 11:38 STOMACHE ACHE Home Medications: Home Medications Aspirin 81 mg CHEW TAB* [Aspirin Low Dose TAB*] 81 mg PO DAILY 01/12/19 [ History Confirmed 01/12/19] Fenofibrate(NF) [Tricor(NF)] 145 mg PO DAILY 01/12/19 [History Confirmed ] Metoprolol Succinate XL TAB* [Toprol XL TAB*] 25 mg PO DAILY 01/12/19 [History Confirmed 01/12/19] PMH/Surg Hx/FS Hx/Imm Hx Endocrine History: Diabetes, Thyroid Disease, Dyslipidemia Cardiovascular History: Hypertension - Surgical History Surgical History: Yes Surgery Procedure, Year, and Place: stent rt leg, PACEMAKER INSERTION - Family History Known Family History: Positive: Hypertension, Diabetes Family History: Father: prostate CA - Social History Alcohol Use: Occasionally Substance Use Type: None Smoking Status (MU): Current Every Day Smoker Type: Cigarettes Amount Used/How Often: 1/2 PPD Have You Smoked in the Last Year: Yes - Immunization History Most Recent Influenza Vaccination: 2017 Most Recent Pneumonia Vaccination: 2016 Review of Systems All Other Systems Reviewed And Are Negative: Yes Physical Exam Triage Information Reviewed: Yes Appearance: Well-Appearing Vital Signs: Initial Vital Signs Temp 97.5 F 01/12/19 11:35 Pulse 78 01/12/19 11:35 Resp 16 01/12/19 11:35 BP 126/62 01/12/19 11:35 Pulse Ox 96 01/12/19 11:35 Vital Signs Reviewed: Yes Eyes: Positive: Conjunctiva Inflamed, Other: - right eye conjunctival injection with purulent drainage. Right upper lid and lower lid with erythema and edema EOMI intact - no significant pain with movement ENT: Positive: Pharynx normal, TMs normal Respiratory: Positive: Lungs clear, Normal breath sounds Cardiovascular: Positive: RRR, No Murmur Course/Dx - Course Course Of Treatment: This is a 73 yr old with b/l red itchy eyes worse on right Assessment Concern for preseptal cellulitis based on exam 20/30: R, 20/25: L Plan - Diagnoses Provider Diagnosis: Preseptal cellulitis of right eye Discharge - Sign-Out/Discharge Documenting (check all that apply): Patient Departure All imaging exams completed and their final reports reviewed: No Studies - Discharge Plan Condition: Good Disposition: HOME Prescriptions: Amoxicillin/Clavulanate TAB* [Augmentin TAB 875*] 875 mg PO BID #20 tab Patient Education Materials: Periorbital Cellulitis in Adults (ED) Referrals: Jayleen Ulloa MD [Primary Care Provider] - Additional Instructions: Start Augmentin as prescribed If symptoms persist or worsen, including more swelling, any vision changes recommend follow up with PCP, product tester or return to urgent care - Billing Disposition and Condition Condition: GOOD Disposition: Home
== END 2019-01-12 12:15 | disposition home or self-care (01) ==
LOC: UCEAST 11:13
DX: H00.031 Abscess of right upper eyelid (principal); H00.032 Abscess of right lower eyelid; F17.210 Nicotine dependence, cigarettes, uncomplicated; E11.9 Type 2 diabetes mellitus without complications; E03.9 Hypothyroidism, unspecified; E78.5 Hyperlipidemia, unspecified; I10 Essential (primary) hypertension; Z95.0 Presence of cardiac pacemaker; Z79.82 Long term (current) use of aspirin
CPT/HCPCS: 99212; G0463

== ENCOUNTER → 2019-08-21 01:26 | Emergency (ER) | payer MEDICARE, OTHER ==
[~2019-08-21 01:26] MED LIST changes: -Acetaminophen TAB* 325 MG PO PRN; +Albuterol HFA INHALER* 8 gm MDI INH ONE; +Albuterol/Ipratropium NEB.SOL* Albuterol 2.5 MG/Ipratropium 0.5 MG 3 ML INH ONE; +Amoxicillin/Clavulanate TAB* 875 MG PO ONE; -Buffered Lidocaine 1% SYRIN* 1 ML/SYRINGE INTRADERM ONE
--- OUTSIDE RECORDS SUMMARY | 2019-08-21 01:38 | XMS REPORT | Continuity of Care Document ---
:1945 External Reference #:[id number] Author Name Jagdish Yuen MD (transmitted by agent of provider Ely Jackman) Address [address] [place] [address] Care Team Providers Name Role Phone Jayleen Ulloa MD - Family Care Team Information Banquet Waiter/Waitress Medicine Problems Active Problems Provider Date Obstructive sleep apnea syndrome Sabi Rico DNP, RN, PIG MACHINE OPERATOR HELPER-BC Onset: Obesity Sabi Rico DNP, RN, PIG MACHINE OPERATOR HELPER-BC Onset: 12/05/2018 Body mass index 30+ - obesity Sabi Rico DNP, RN, PIG MACHINE OPERATOR HELPER-BC Onset: 2018 Social History Type Date Description Comments Sex Unknown Tobacco Use Start: Unknown currently smokes 1/2 Pack Daily ETOH Use Occasionally consumes alcohol Recreational Drug Use Denies Drug Use Tobacco Use Start: Unknown Light tobacco smoker (10 or fewer cigarettes/day) Smoking Status Reviewed: 07/04/19 Light tobacco smoker (10 or fewer cigarettes/day) Exercise Type/Frequency Exercises sporadically walking Allergies, Adverse Reactions, Alerts Active Allergies Reaction Severity Comments Date NKDA 03/01/2018 Onions stomach pain 03/01/2018 Medications Active Medications SIG Qnty Indications Ordering Date Provider Trulicity inject 0.75mg once 6ml E11.65 Jagdish Yuen MD 03/31/2019 weekly 0.75mg/0.5ML Solution Pen-Inject Levothyroxine Sodium take 75mcg once 90tabs Jagdish Yuen MD 03/31/2019 daily on an empty 75mcg Tablets stomach, do not take with calcium Eliquis 1 by mouth twice a 180tabs Violeta Hunt, 08/09/2018 5mg Tablets day N.P. 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 Sabi Rico 08/05/2018 Advancement Device appliance DNP, RN, PIG MACHINE OPERATOR HELPER-BC /mandibular Device advancement device for sleep apnea with needed adjustments. g47.33 Aspir-Low take 1 tab by Unknown 81mg mouth daily Tablets DR Potassium 1 by mouth once a Unknown 99mg day Tablets Fluticasone 2 sprays each Unknown Propionate nostril qd. as 50mcg/Act needed Suspension Glipizide 1 by mouth twice a Unknown 10mg day Tablets Lisinopril 1 tablet po twice Unknown 20mg daily Am/PM Tablets Multivitamin Adult once a day Unknown Chewtabs Fenofibrate 1 by mouth every Unknown 145mg day Tablets Omeprazole 1 by mouth every Unknown 20mg day moring Capsules DR Simvastatin take 1 tab mouth Unknown 40mg at bedtime Tablets [place] 3-6-9 1x daily Unknown 1200mg Capsules Metformin HCL take one tablet by Unknown 1000mg mouth twice a day Tablets Cilostazol 1 tab every 12 Unknown 100mg hours Tablets Acetaminophen 2 tablets by mouth Unknown 325mg every 6 hours as Tablets needed for pain/fever Immunizations Description No Information Available Vital Signs Date Vital Result Comment 07/04/2019 10:55am Height 70 inches 5'10" Weight 214.00 lb w/ shoes Heart Rate 90 /min BP Systolic Sitting 133 mmHg BP Diastolic Sitting 72 mmHg BMI (Body Mass Index) 30.7 kg/m2 07/04/2019 10:17am Height 70 inches 5'10" Weight 213.00 lb Heart Rate 71 /min BP Systolic 128 mmHg BP Diastolic 66 mmHg O2 % BldC Oximetry 97 % BMI (Body Mass Index) 30.6 kg/m2 Results Test Acquired Date Facility Test Result H/L Range Note Laboratory test 03/31/2019 [facility] TSH 6.05 High 0.34-5.[address] (Thyroid mcIU/[place] [address] Stim Horm) [phone] Free T4 (Free Thyroxine) 0.96 ng/dL Normal 0.61-1.12 Hemoglobin A1c (Glyco HGB) 7.6 % High 4.0-5.6 1 1 Therapeutic target for the treatment of diabetes mellitus patients is <7% HBA1C, and in selective patients <6.0%. Please refer to [place] [employer] diabetic care guidelines for further information. Procedures Date Code Description Status 05/03/2019 23978 Icd Eval Sing,Dual,Multi Lead Remote Recpt Transm Tech Rev Completed Tech S 05/03/2019 79255 Icd Eval Sing,Dual,Multi Lead Remote Recpt Transm Tech Rev Completed Tech S 05/03/2019 14529 Pacemaker Check Remote Up To 90Days Single,Dual,Multiple Completed Lead 05/03/2019 02729 Pacemaker Check Remote Up To 90Days Single,Dual,Multiple Completed Lead 04/19/2019 42401 EKG Tracing & Interpretation Completed 01/23/2019 34387 Pace Maker Eval W/Iterative Adjment Dual Lead Completed 01/23/2019 91086 Pace Maker Eval W/Iterative Adjment Dual Lead Completed Medical Devices Description No Information Available Encounters Type Date Location Provider Dx Diagnosis Office Visit 04/19/2019 [facility] Rajesh Ashley G47.33 Obstructive sleep 1:30p Kalpesh Serrano apnea (adult) (pediatric) E11.65 Type 2 diabetes mellitus with hyperglycemia I49.5 Sick sinus syndrome E66.9 Obesity, unspecified I48.0 Paroxysmal atrial fibrillation I10 Essential (primary) hypertension E78.5 Hyperlipidemia, unspecified Office Visit 04/07/2019 [facility] G47.33 Obstructive sleep 10:[facility]a [facility], apnea (adult) Chris RN, [facility]- (pediatric) Office Visit 03/31/2019 [facility] Jagdish Yuen E11.65 Type 2 diabetes 12:00p and Endocrinology mellitus with of Chris hyperglycemia E03.9 Hypothyroidism, unspecified Z79.84 snf (current) use of oral hypoglycemic drugs Z68.31 Body mass index (BMI) 31.0-31.9, adult Assessments Date Code Description Provider 07/04/2019 E11.65 Type 2 diabetes mellitus with Jagdish Yuen MD hyperglycemia 07/04/2019 G47.33 Obstructive sleep apnea (adult) Sabi Rico DNP, RN, (pediatric) PIG MACHINE OPERATOR HELPER-BC 07/04/2019 E03.9 Hypothyroidism, unspecified Jagdish Yuen MD 07/04/2019 F17.210 Nicotine dependence, cigarettes, Sabi Rico DNP, RN , uncomplicated [facility] 05/03/2019 I49.5 Sick sinus syndrome Rajesh Serrano M.D. 05/03/2019 I49.5 Sick sinus syndrome Remote Device Checks 05/03/2019 Z95.0 Presence of cardiac pacemaker Rajesh Serrano M.D. 05/03/2019 Z95.0 Presence of cardiac pacemaker Remote Device Checks 04/19/2019 G47.33 Obstructive sleep apnea (adult) Rajesh Serrano M.D. (pediatric) 04/19/2019 E11.65 Type 2 diabetes mellitus with Rajesh Serrano M.D. hyperglycemia 04/19/2019 I49.5 Sick sinus syndrome Rajesh Serrano M.D. 04/19/2019 E66.9 Obesity, unspecified Rajesh Serrano M.D. 04/19/2019 I48.0 Paroxysmal atrial fibrillation Rajesh Serrano M.D. 04/19/2019 I10 Essential (primary) hypertension Rajesh Serrano M.D. 04/19/2019 E78.5 Hyperlipidemia Rajesh Serrano M.D. 04/07/2019 G47.33 Obstructive sleep apnea (adult) Sabi Rico DNP, RN, (pediatric) [facility] 03/31/2019 E11.65 Type 2 diabetes mellitus with Jagdish Yuen MD hyperglycemia 03/31/2019 E03.9 Hypothyroidism, unspecified Jagdish Yuen MD 03/31/2019 Z79.84 terminologist (current) use of oral Jagdish Yuen MD hypoglycemic drugs 03/31/2019 Z68.31 Body mass index (BMI) 31.0-31.9, Jagdish Yuen MD adult 01/23/2019 I49.5 Sick sinus syndrome Ica Pacer Schedule 01/23/2019 Z95.0 Presence of cardiac pacemaker Rajesh Serrano M.D. 01/23/2019 Z95.0 Presence of cardiac pacemaker Ica Pacer Schedule Plan of Treatment Future Appointment(s):01/03/2020 1:40 pm - Jagdish Yuen MD at [facility]10/03/2019 1:45 pm - Sabi Rico DNP, RN, PIG MACHINE OPERATOR HELPER-BC at [facility]08/01/2019 2:40 pm - Rajesh Serrano M.D. at [id number]/10/2019 - Sabi Rico DNP, RN, PIG MACHINE OPERATOR HELPER-BCG47.33 Obstructive sleep apnea (adult) (pediatric)New Orders:Sleep Study, Ordered: 05/13Follow up:3 monthsRecommendations:Sleep apnea to continue the oral appliance/mandibular device He is comfortable with the MAD and will contact dentist to assure setting optimal prior to study. He does not tend to sleep on his back. Recommend in-lab PSG with MAD to assess for efficacy of treatment and sleep in natural positions. You can call 2 weeks after study for results. Risks of untreated sleep apnea including cardiovascular events: rhythm irregularities, heart attack, stroke; gastro esophageal reflux disease (GERD); diabetes; anxiety, depression; high blood pressure; accidents (machinery and automobile)F17.210 Nicotine dependence, cigarettes, uncomplicatedRecommendations :Consider acupuncture or other modality to quit. Check with [facility] Quit line about covered options. Discuss with PCP about the low dose CT screening for lung cancer for people with tobacco use disorder. Functional Status Description No Information Available Mental Status Description No Information Available Referrals Description No Information Available
--- OUTSIDE RECORDS SUMMARY | 2019-08-21 01:38 | XMS REPORT | Summary of Care ---
:1945 Author Organization [facility] Address [address] [facility] [place] [address] Care Team Providers Name Role Phone Jayleen Ulloa Primary Care Provider Lionel Mcbride MD Primary Director Digital Analytics/Entertainment Musician Gloria Lucas RN Signall[employer] Mill Tender Unavailable Gloria Lucas RN [employer]all[employer] Mill Tender Unavailable Reason for Visit Reason Comments Hyperglycemia BG has improved on Trulicity, but still above goal often. Last A1C above goal at 7.5. Weight Problem Has lost 5 lbs since last visit, 14 lbs in the past year but wants to lose more weight to help improve BG/A1C and TG. Encounter Details Date Type Department Care Team Description 08/17/2019 Office Visit [place] [facility] Gudelia Hsieh, Type 2 diabetes mellitus without complications (Primary Dx); Medicine RD Mixed hyperlipidemia; [address] BMI 31.0-31.9,adult [place], [place] [id number] [place] [address] [phone] Allergies Active Allergy Reactions Severity Noted Date Comments No Known Drug Allergy Unknown Reaction 12/01/2007 Onion GI Reaction 02/02/2017 documented as of this encounter (statuses as of 08/17/2019) Medications Medication Sig Dispensed Refills Start Date End Date Status ASPIRIN 81 MG Oral Take 1 Tab by mouth 0 Active Tab DAILY. [place]idelberg-3 Fatty Acids Take 1 Cap by mouth 0 Active (OMEGA 3) 1200 MG TWICE DAILY. Oral Cap fluticasone (FLONASE) [place] 2 Sprays in 1 Bottle 2 02/27/2013 Active 50 MCG/ACT Nasal nose DAILY. Suspension POTASSIUM PO Take by mouth 0 Active DAILY. Multiple Vitamin Take by mouth 0 Active (ONE-A-DAY MENS PO) DAILY. metoprolol Take 25 mg by mouth 0 Active (LOPRESSOR) 25 MG TWICE DAILY. Oral Tab ELIQUIS 5 MG Oral Tab Take 5 mg by mouth 0 10/23/2018 Active TWICE DAILY. JANUVIA 50 MG Oral TAKE 1 TABLET TWICE 180 Tab 1 11/07/2018 Active Tab A DAY ACCU-CHEK FASTCLIX 1 Each by Does not 200 Each 1 12/23/2018 Active LANCETS Does not apply route TWICE apply Misc DAILY. 1. Brand: FREESTYLE LITE 28g Lancets 2. Dx:DM 3. non-Insulint 4. Test Bid E11.9 SYNTHROID 50 MCG Oral TAKE 1 TABLET 90 Tab 1 03/13/2019 Active Tab BEFORE BREAKFAST metFORMIN HCL 1000 MG TAKE 1 TABLET TWICE 180 Tab 1 04/24/2019 Active Oral Tab A DAY lisinopril (PRINIVIL, Take 2 Tabs by 180 Tab 1 05/08/2019 Active ZESTRIL) 20 MG Oral mouth DAILY. Tab simvastatin (ZOCOR) TAKE 1 TABLET DAILY 90 Tab 1 05/08/2019 Active 40 MG Oral Tab AT BEDTIME glipiZIDE (GLUCOTROL) TAKE 1 TABLET TWICE 180 Tab 1 05/08/2019 Active 10 MG Oral Tab A DAY Glucose Blood 1 Each by Apply 200 Strip 1 05/08/2019 Active (FREESTYLE LITE) In externally route Vitro Strip TWICE DAILY. Omeprazole delayed TAKE 1 CAPSULE 90 Cap 4 06/02/2019 Active rel cap 20 MG Oral DAILY AT 7 A.M ON CAPSULE DELAYED AN EMPTY STOMACH RELEASE TRICOR 145 MG Oral TAKE 1 TABLET DAILY 90 Tab 1 06/09/2019 Active Tab cilostazol (PLETAL) TAKE 1 TABLET TWICE 180 Tab 1 08/09/2019 Active 100 MG Oral Tab A DAY Dulaglutide Inject 0.75 mg 0 Active (TRULICITY) 0.75 beneath the skin MG/0.5ML Subcutaneous DIRECTED. Weekly Solution Pen-injector injection. 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 05/13/2016 History of smoking 05/03/2016 Hypothyroidism 02/27/2013 Atherosclerosis of leg with intermittent claudication 09/05/2012 Smoking 04/01/2012 Diabetes mellitus 08/19/2011 BMI 32.0-32.9,adult 01/05/2011 Hyperlipidemia 12/01/2007 History of Enlarged Prostate 12/01/2007 Anxiety 12/01/2007 PVD (peripheral vascular disease) Overview: mild, arterial Doppler 2007 Hypertension documented as of this encounter (statuses as of 08/17/2019) Immunizations Name Administration Dates Next Due Influenza (IM) Preservative Free 03/31/2013 Influenza Vaccine High Dose 03/31/2018, 09/14/2017, 04/02/2016, 04/11/2015, 06/14/2014 Influenza Vaccine Split 06/04/2010 PNEUMOCOCCAL POLYSACCHARIDE VACCINE 07/06/2018, 07/10/2008 Pneumococcal Conjugate(13 Valent) 08/13/2014 TDAP Vaccine 08/18/2016 ZOSTER (ZOSTAVAX) VACCINE 06/14/2014 documented as of this encounter Social History Tobacco Use Types Packs/Day Years Used Date Current Every Day Smoker Cigarettes 0.5 46 Quit: 08/15/2014 Smokeless Tobacco: Never Used Alcohol Use Drinks/Week oz/Week Comments Yes 1 Standard drinks or equivalent 1.0 Sex Assigned at Date Recorded Not on file Job Start Date Occupation Industry Not on file Not on file Not on file Travel History Travel Start Travel End No recent travel history available. documented as of this encounter Last Filed Vital Signs Vital Sign Reading Time Taken Comments Blood Pressure - - Pulse - - Temperature - - Respiratory Rate - - Oxygen Saturation - - Inhaled Oxygen Concentration - - Weight 95.7 kg (211 lb) 08/17/2019 2:42 PM EST Height 175.3 cm (5' 9") 08/17/2019 2:42 PM EST Body Mass Index 31.16 08/17/2019 2:42 PM EST documented in this encounter Patient Instructions Patient InstructionsGudelia Hsieh RD - 08/17/2019 2:00 PM ESTFollow consistent carbohydrate meal plan, 2-3 carbohydrate choices per meal or 30-45 grams carbohydrate per meal. Limit starches with dinner and leftover starches with lunch. Have venison, fish andchicken most often. Skip the Ramen and keep out of the house. Include 2-3 fruits and at least 3 vegetables daily. Limit cider and juice and use cranberry light juice or tomato juice more often. Include 25 to 35 grams of fiber per day. High fiber pasta, lite bread or buns - multigrain, high fiber [place] muffins, cereal/fiber bars, beans - chili or [place]xton or pea soups or on salads, peas, corn, potato, brown rice, berries, apples and pears, kiwi,oats, quinoa, winter squash - spaghetti squashand bulgur. 8 (8 ounce) glasses of water daily. Have at least 1 liter of plain water. Have lite tea - Gissel with ginseng or use unsweetened with Crystal lite pure with stevia or fresh lemon/[place] with stevia. Choose low fat sandwich meats - lean turkey ham or turkey, tuna with less soto ( Try olive oil soto). Limit pizza (cauliflower crust/thin crust) and have salad or veggies with it. Try lean cuisine pizza. Have crock pot meals - stew, sexton soups, chili with lots of low carbohydrate veggies. Use Stevia with oatmeal or cold cereal. Alternate 2 eggs and multigrain toast with oatmeal with 1 tsp of butter and stevia and 1/2 cup blueberries or 1 tsp of jam. Go back to 2% milk. Have sugar-free chocolate ice cream limit to once a week. Limit peanut butter and cheese intake. Limit egg yolks to 6 per week. Have 2 eggs if fried and have egg beaters for scramble/omelet with lot of veggies with 1 slice of toast. Use lean meats - chicken, fish, venison and lean pork or beef. [place] or lean ham for breakfast - look at [employer]. Continue to avoid/limit Ramen. Limit desserts and use smaller portion of dessert and use stevia when baking. No more than 4-5 hours between meals and snacks. Use vegetarian and diabetic and the Keto cookbooks for new ideas. Make sure reduced fat. Get new prescription for 1.5 mg Trulicity YUNG. Weight loss goal: 1/2-1 lb per week to lose 10 lbs in 6-8 months and under 200 lbs. Exercise goal: exercise bike for 20-30 minutes, at least 3 times a week at [employer] or at home if son has an exercise bike. Follow up visit in 6 months.Electronically signed by Gudelia Hsieh RD at 2:53 PM EST documented in this encounter Progress Notes Gudelia Hsieh RD - 08/17/2019 2:00 PM EST PATIENT: Adithya Ferrari : 1945 DATE OF SERVICE: 08/17/2019 REFERRING PRACTITIONER: Jayleen Ulloa PRIMARY CARE PROVIDER: Jayleen Ulloa CHIEF COMPLAINT: Chief Complaint Patient presents with Hyperglycemia BG has improved on Trulicity, but still above goal often. Last A1C above goal at 7.5. Weight Problem Has lost 5 lbs since last visit, 14 lbs in the past year but wants to lose more weight to help improve BG/A1C and TG. SUBJECTIVE: Adithya is a 74-y.o. male who presents for a follow-up for the diabetes self management training. Lab Results Component Value Date GLYCO 7.5 (H) 05/08/2019 GLYCO 7.9 (H) 01/25/2019 GLYCO 7.6 (H) 10/04/2018 GLYCO 7.3 (H) 06/29/2018 GLYCO 7.0 (H) 03/24/2018 Lab Results Component Value Date Cholesterol 120 01/25/2019 Glucose Monitoring: Fastin-160 mg/dl, occasionally 200+. Before meals: 120-180 mg/dl OTHER CONCERNS: He has been having more cramping in his calves at night so he will discuss with MD. Reviewed patient's AVS from last appointment. Patient has food records for review. Patient has been able to plan ahead for meals. Patient has been able to stop skipping meals. Patient has identified barriers that may limit their ability to follow the meal plan. SLEEP HABITS: Does not sleep well when he has cramps in his calves at night. EXERCISE HABITS: Current exercise: walking small amount daily. Factors that affect exercise habits: Walking less due to leg issues and colder weather. CONTRIBUTING FACTORS: Comorbidities: As listed in history Past Medical History: Diagnosis Date Anxiety Atrial fibrillation (HCC) Depression Diabetes feet - 05/09, eye - 08/09 Hay fever History of Enlarged Prostate 12/01/2007 Dr. Leyva Hyperlipidemia 12/01/2007 Hypertension PVD (peripheral vascular disease) (HCC) mild, arterial Doppler 2007 Retinopathy 07/2014 mild S/P placement of cardiac pacemaker 01/27/2018 Dual chamber pacemaker Sick sinus syndrome (HCC) 01/27/2018 Past Surgical History: Procedure Laterality Date COLONOSCOPY N/A 06/23/2018 Procedure: COLONOSCOPY; Surgeon: Vishal Joaquin MD; Location: [facility] GI OR Social History Socioeconomic History Marital status: Spouse name: Not on file Number of children: Not on file Years of education: Not on file Highest education level: Not on file Occupational History Not on file Social Needs Financial resource strain: Not on file Food insecurity Worry: Not on file Inability: Not on file Transportation needs Medical: Not on file Non-medical: Not on file Tobacco Use Smoking status: Current Every Day Smoker Packs/day: 0.50 Years: 45.00 Pack years: 22.50 Types: Cigarettes Last attempt to quit: 08/15/2014 Years since quittin.0 Smokeless tobacco: Never Used Substance and Sexual Activity Alcohol use: Yes Alcohol/week: 1.0 standard drinks Types: 1 Standard drinks or equivalent per week Drug use: Not on file Sexual activity: Not on file Lifestyle Physical activity Days per week: Not on file Minutes per session: Not on file Stress: Not on file Relationships Social connections Talks on phone: Not on file Gets together: Not on file Attends lutheran service: Not on file Active member of club or organization: Not on file Attends meetings of clubs or organizations: Not on file Relationship status: Not on file Intimate partner violence Fear of current or ex partner: Not on file Emotionally abused: Not on file Physically abused: Not on file Forced sexual activity: Not on file Other Topics Concern Not on file Social History Narrative Not on file Family History Problem Relation Age of Onset Diabetes Father Cancer Paternal Uncle pancreatic cancer Allergies Allergen Reactions No Known Drug Allergy Unknown Reaction Onion GI Reaction Current Outpatient Medications Medication Sig ACCU-CHEK FASTCLIX LANCETS Does not apply Misc 1 Each by Does not apply route TWICE DAILY. 1.Brand: FREESTYLE LITE 28g Lancets 2. Dx:DM 3. non-Insulint 4. Test Bid E11.9 ASPIRIN 81 MG Oral Tab Take 1 Tab by mouth DAILY. cilostazol (PLETAL) 100 MG Oral Tab TAKE 1 TABLET TWICE A DAY Dulaglutide (TRULICITY) 0.75 MG/0.5ML Subcutaneous Solution Pen-injector Inject 0.75 mg beneath the skin DIRECTED. Weekly injection. ELIQUIS 5 MG Oral Tab Take 5 mg by mouth TWICE DAILY. fluticasone (FLONASE) 50 MCG/ACT Nasal Suspension [place] 2 Sprays in nose DAILY. glipiZIDE (GLUCOTROL) 10 MG Oral Tab TAKE 1 TABLET TWICE A DAY Glucose Blood (FREESTYLE LITE) In Vitro Strip 1 Each by Apply externally route TWICE DAILY. JANUVIA 50 MG Oral Tab TAKE 1 TABLET TWICE A DAY lisinopril (PRINIVIL, ZESTRIL) 20 MG Oral Tab Take 2 Tabs by mouth DAILY. metFORMIN HCL 1000 MG Oral Tab TAKE 1 TABLET TWICE A DAY metoprolol (LOPRESSOR) 25 MG Oral Tab Take 25 mg by mouth TWICE DAILY. Multiple Vitamin (ONE-A-DAY MENS PO) Take by mouth DAILY. [place]idelberg-3 Fatty Acids (OMEGA 3) 1200 MG Oral Cap Take 1 Cap by mouth TWICE DAILY. Omeprazole delayed rel cap 20 MG Oral CAPSULE DELAYED RELEASE TAKE 1 CAPSULE DAILY AT 7 A.M ON AN EMPTY STOMACH POTASSIUM PO Take by mouth DAILY. simvastatin (ZOCOR) 40 MG Oral Tab TAKE 1 TABLET DAILY AT BEDTIME SYNTHROID 50 MCG Oral Tab TAKE 1 TABLET BEFORE BREAKFAST TRICOR 145 MG Oral Tab TAKE 1 TABLET DAILY No current facility-administered medications for this visit. VITALS: Ht 5' 9" (1.753 m) Wt 211 lb (95.7 kg) BMI 31.16 kg/m2 Wt Readings from Last 10 Encounters: 08/17/19 211 lb (95.7 kg) 03/28/19 220 lb (99.8 kg) 02/28/19 221 lb 3.2 oz (100.3 kg) 02/13/19 216 lb (98 kg) 02/06/19 222 lb 8 oz (100.9 kg) 11/01/18 218 lb (98.9 kg) 10/26/18 221 lb 9.6 oz (100.5 kg) 07/21/18 220 lb (99.8 kg) 07/06/18 213 lb 14.4 oz (97 kg) 06/28/18 215 lb (97.5 kg) IMPRESSION: Adithya has completed most of the above Outcomes Measures from last appointment. He has been limitingportions especially carbohydrates and doing less exercise. Edgar has lost 5 lbs since last visit, 14 lbs in the past year and is down a pant size and feeling better. His last A1C had improved at 7.5. Patient is motivated to continue to limit portions and increase exercise to help improve BG /A1C and promote further weight loss. See patient instructions for details for updated recommendations; Patient Instructions Follow consistent carbohydrate meal plan, 2-3 carbohydrate choices per meal or 30-45 grams carbohydrate per meal. Limit starches with dinner and leftover starches with lunch. Have venison, fish andchicken most often. Skip the Ramen and keep out of the house. Include 2-3 fruits and at least 3 vegetables daily. Limit cider and juice and use cranberry light juice or tomato juice more often. Include 25 to 35 grams of fiber per day. High fiber pasta, lite bread or buns - multigrain, high fiber [place] muffins, cereal/fiber bars, beans - chili or [place] or pea soups or on salads, peas, corn, potato, brown rice, berries, apples and pears, kiwi,oats, quinoa, winter squash - spaghetti squashand bulgur. 8 (8 ounce) glasses of water daily. Have at least 1 liter of plain water. Have lite tea - Gissel with ginseng or use unsweetened with Crystal lite pure with stevia or fresh lemon/[place] with stevia. Choose low fat sandwich meats - lean turkey ham or turkey, tuna with less soto ( Try olive oil soto). Limit pizza (cauliflower crust/thin crust) and have salad or veggies with it. Try lean cuisine pizza. Have crock pot meals - stew, sexton soups, chili with lots of low carbohydrate veggies. Use Stevia with oatmeal or cold cereal. Alternate 2 eggs and multigrain toast with oatmeal with 1 tsp of butter and stevia and 1/2 cup blueberries or 1 tsp of jam. Go back to 2% milk. Have sugar-free chocolate ice cream limit to once a week. Limit peanut butter and cheese intake. Limit egg yolks to 6 per week. Have 2 eggs if fried and have egg beaters for scramble/omelet with lot of veggies with 1 slice of toast. Use lean meats - chicken, fish, venison and lean pork or beef. [place] or lean ham for breakfast - look at [employer]. Continue to avoid/limit Ramen. Limit desserts and use smaller portion of dessert and use stevia when baking. No more than 4-5 hours between meals and snacks. Use vegetarian and diabetic and the Keto cookbooks for new ideas. Make sure reduced fat. Get new prescription for 1.5 mg Trulicity YUNG. Weight loss goal: 1/2-1 lb per week to lose 10 lbs in 6-8 months and under 200 lbs. Exercise goal: exercise bike for 20-30 minutes, at least 3 times a week at [employer] or at home if son has an exercise bike. Follow up visit in 6 months. TIME SPENT IN SESSION TODAY: Time spent with the patient today, 45 minutes. BARRIERS TO LEARNING/COMPLIANCE: Don is having cramping in his calves fairly often, so not walking much but will try to start using an exercise bike at his son's or at the gym. His daughter and 2 grandsons are living with him, so he is cooking more of the richer foods that they like and eating more high fat foods. Author: Gudelia Hsieh, MPH, RD, CDN, CDE 08/17/2019, 17:26 documented in this encounter Plan of Treatment Date Type Specialty Care Team Description 02/15/2020 Office Visit Internal Medicine Gudelia Hsieh, ISAAK [address] [place] [address] [phone] Name Type Priority Associated Diagnoses Order Schedule MNT FOLLOW UP EACH 15 Procedures Routine Ordered: 08/17/2019 MINS Health Maintenance Due Date Last Done Comments ZOSTER IMMUNIZATION SERIES 08/09/2014 06/14/2014 (2 of 3) MEDICARE ANNUAL WELLNESS 10/14/2018 10/14/2017, 08/18/2016, VISIT 08/18/2016, Additional history exists INFLUENZA VACCINE (#1) 2019 03/31/2018, 09/14/2017, 04/02/2016, Additional history exists HEMOGLOBIN A1C 08/08/2019 05/08/2019, 01/25/2019, 10/04/2018, Additional history exists DEPRESSION SCREENING 02/07/2020 02/06/2019 FALL RISK ASSESSMENT 02/07/2020 02/06/2019, 02/06/2019 FOOT EXAM 02/07/2020 02/06/2019, 02/06/2019, 10/14/2017, Additional history exists LIPID DISORDER SCREENING 05/08/2020 05/08/2019, 01/25/2019, 10/04/2018, Additional history exists Diabetic Eye Exam 02/20/2021 02/20/2019, 02/20/2019, 06/21/2018, Additional history exists Colonoscopy 06/23/2023 06/23/2018, 06/23/2018, 01/23/2013, Additional history exists DTaP/Tdap/Td Vaccines (2 - 08/18/2026 08/18/2016 Tdap) AAA SCREENING/SURVEILLANCE Completed 06/28/2018, 03/08/2018, 12/07/2017, Additional history exists PNEUMOCOCCAL 65+YRS Completed 07/06/2018, 08/13/2014, 07/10/2008 HEPATITIS A IMMUNIZATION Aged Out No longer eligible SERIES based on patient's age to complete this topic HPV IMMUNIZATION SERIES Aged Out No longer eligible based on patient's age to complete this topic MENINGOCOCCAL VACCINE IMM Aged Out No longer eligible based on patient's age to complete this topic documented as of this encounter Goals Goal Patient Goal Associated Recent Patient-Stated? Author Type Problems Progress Blood Pressure Blood Pressure Hypertension 140/72 No Artemio, < 140/90 (03/28/2019 Jayleen, 10:51 AM EDT) Note: Hypertension Care Plan Based on the patient's clinical history and according to JNC 8 guidelines target blood pressure goal is less than 140/90. Based on the patient's last blood pressure of BP: 120/66 mmHg the patient is at at goal. As your provider, it is important that I advise you regarding: your current medications and help you with any challenges you may face taking your medications as directed (ex. instructions, cost, side effects, and interactions). Important lifestyle changes: exercise, weight reduction and dietary sodium reduction your clinical goals and how you can achieve success: weight reduction, exercise plan and diet improvements medication management: adjusted medications as appropriate patient education/self-management tools provided: Yes To successfully manage my Hypertension I will: monitor my blood pressure daily, understanding that my goal is less than 140/ 90 per my healthcare provider's recommendation. I will schedule an appointment with my provider if consistent abnormal readings greater than 160/100. take medications every day as prescribed by my healthcare provider and if unable to take them I will discuss with my provider. monitor for symptoms of chest pain, chest tightness/pressure, irregular heartbeat, persistent dizziness, radiating arm pain, and neck or jaw pain. If any of these symptoms are noticed I will seek medical attention immediately by calling 911 exercise/walk 30 minutes 5 day(s) per week. If I experience chest pain, chest tightness, or shortness of breath, I will seek medical attention immediately. follow a diet rich in fruits, vegetables, and low-fat dairy products with reduced content of saturated & total fat. I will reduce my sodium intake daily. An example is the DASH diet. To obtain more information please refer to the DASH Eating Plan listed in Educational Resources. record my blood pressure results. Long is safe and secure way for you to do this in your medical record online. try to obtain an ideal body weight. My recent weight was Weight: 232 lb ( 105.235 kg). My weight loss goal for my next office visit is 225. limit alcohol consumption. For men two drinks per day and women one drink per day. if currently smoking, will discuss how to quit smoking with my healthcare provider and work towards quitting. Educational Resources: National Heart, Lung, & Blood [place] http://nhlbi.nih.gov/hbp/index.html The DASH Diet Eating Plan http://www.nhlbi.nih.gov/health/health-topics/ topics/dash/ Academy of Nutrition & DIetetics http://eatright.org National Smoking Cessation Site http://smokefree.gov Blood Pressure < Blood Pressure 140/72 (03/28/2019 No Jayleen Ulloa, 140/90 10:51 AM EDT) Note: This is an individualized treatment (blood pressure) goal for Adithya Hickey Vega: Displayed above (on the left) is your goal for blood pressure control. Your most recent blood pressure is also shown above, on the right. You should try to achieve blood pressures that are lower than your goal listed above (on the left). Diabetes < 7.0 Diabetes Diabetes mellitus 7.5 (05/08/2019 10:59 No SHAKEEL Ulloa EDT) MD Jayleen Note: Diabetes Care Plan According to current 2014 ADA guidelines the patient A1C goal is less than 7. The patient's last A1C was Lab Results Lab Results Value Date/Time GLYCO 7.4 07/06/2014 0757 GLYCO 7.4 09/04/2013 0849 The patient is:above goal . As your provider, it is important that I advise you regarding: your current medications and help you with any challenges you may face taking your medications as directed (ex. instructions, cost, side effects, and interactions). lifestyle changes:exercise, diet, glucose monitoring and smoking cessation your clinical goals and how you can achieve success:weight reduction, exercise plan, diet management, glucose monitoring and smoking cessation medication management: adjusted medications as appropriate patient education/self-management tools provided: Yes To successfully manage my Diabetes I will: have lab work every six months if my previous A1c was 7 or less. If my results were greater than 7, I will have lab work every three months. My goal is to control my diabetes by keeping A1c below 7.0 take medications every day as prescribed by my healthcare provider and if unable to take them I will discuss with my provider. exercise/walk 30 minutes 5 day(s) per week. If I experience chest pain, chest tightness, or shortness of breath, I will seek medical attention immediately. check feet daily. If sores or irritation are noticed, will seek medical attention. follow a low carbohydrate and low fat diet. My goal is an LDL (bad cholesterol) number less than 100 when I have my routine lab work. check blood sugar as instructed and will call my healthcare provider if the results are consistently below 70 or above 300. I will monitor for symptoms of low blood sugar (feeling faint, dizzy, lig htheaded, jittery, sweaty, or hungry), if symptoms are noticed, I will eat or drink something (glucose tabs, orange juice, candy) to help raise sugar. record my blood sugar results (including dextrose sticks). [email or web address] is safe and secure way for you to do this in your medical record online. try to obtain an ideal body weight. My recent weight was Weight: 234 lb ( 106.142 kg). to prevent kidney problems common to people with diabetes I will complete a yearly Microalbumin to check for protein in urine. I will talk with my healthcare provider about medications to prevent diabetic renal disease. to prevent diabetic retinopathy I will see an eye doctor yearly. A yearly dilated eye exam helps prevent blindness. if currently smoking, will discuss how to quit smoking with my healthcare provider and work towards quitting. Diabetes < 7.0 Diabetes Diabetes mellitus 7.5 (05/08/2019 10:59 No SHAKEEL Ulloa EDT) MD Jayleen Note: Diabetes Care Plan According to current 2014 ADA guidelines the patient A1C goal is less than 7. The patient's last A1C was Lab Results Lab Results Value Date/Time GLYCO 7.5 11/06/2014 0938 GLYCO 7.4 09/04/2013 0849 The patient is:above goal . As your provider, it is important that I advise you regarding: your current medications and help you with any challenges you may face taking your medications as directed (ex. instructions, cost, side effects, and interactions). Important lifestyle changes:exercise and diet your clinical goals and how you can achieve success:weight reduction, exercise plan and diet management medication management: adjusted medications as appropriate patient education/self-management tools provided: Yes To successfully manage my Diabetes I will: have lab work every six months if my previous A1c was 7 or less. If my results were greater than 7, I will have lab work every three months. My goal is to control my diabetes by keeping A1c below 7.0 take medications every day as prescribed by my healthcare provider and if unable to take them I will discuss with my provider. exercise/walk 30 minutes 5 day(s) per week. If I experience chest pain, chest tightness, or shortness of breath, I will seek medical attention immediately. check feet daily. If sores or irritation are noticed, will seek medical attention. follow a low carbohydrate and low fat diet. My goal is an LDL (bad cholesterol) number less than 100 when I have my routine lab work. check blood sugar as instructed and will call my healthcare provider if the results are consistently below 70 or above 300. I will monitor for symptoms of low blood sugar (feeling faint, dizzy, lig htheaded, jittery, sweaty, or hungry), if symptoms are noticed, I will eat or drink something (glucose tabs, orange juice, candy) to help raise sugar. record my blood sugar results (including dextrose sticks). [employer] is safe and secure way for you to do this in your medical record online. try to obtain an ideal body weight. My recent weight was Weight: 232 lb ( 105.235 kg). My weight loss goal for my next office visit is 225. to prevent kidney problems common to people with diabetes I will complete a yearly Microalbumin to check for protein in urine. I will talk with my healthcare provider about medications to prevent diabetic renal disease. to prevent diabetic retinopathy I will see an eye doctor yearly. A yearly dilated eye exam helps prevent blindness. if currently smoking, will discuss how to quit smoking with my healthcare provider and work towards quitting. Glycohemoglobin A1c < 8.0 Diabetes 7.5 (05/08/2019 10:59 No Jayleen Ulloa AM EDTJn BURNETT Note: This is an individualized treatment (diabetes control, HgbA1C) goal for Adithya Ferrari: Displayed above is your progress towards your HgbA1C goal. Your goal is shown above (on the left); your most recent HgbA1C is shown on the right. Note that lower numbers are better. Weight loss vs. 18 mo Lifestyle 11.5 (08/17/2019 2:42 PM No Jayleen Ulloa MD max (lbs) >= 10 EST) Note: This is an individualized lifestyle goal for Adithya Ferrari: Your body mass index (BMI) is more than 30. You should lose weight. A reasonable starting goal is to lose 10 pounds. Displayed above is how many pounds you have lost thus far towards your 10 pound weight loss goal. Keep immunizations current Lifestyle No Jayleen Ulloa MD Note: This is an individualized lifestyle goal for Adithya Ferrari: Please be sure to keep up-to-date on recommended immunizations. For example, this would include a yearly influenza vaccine. Immunization status can be seen by looking at the Health Maintenance sections of your [facility], Plan of Care, and any After Visit Summaries. Lifestyle - Current Smoker Lifestyle Smoking No Jayleen Ulloa MD Note: Smoking Cessation Plan Discussed smoking cessation with patient. Patient readiness to quit:yes Discussed smoking cessation plan according to AHRQ guidelines:counseled patient on the risks of tobacco use and advised patient to quit and offered support My Quit Plan: My quit date is set for Notify my friends, family, and co-workers about decision to quit. Will ask for their support and understanding Remove tobacco products from my environment. I will ask people not to smoke around me or in my home. I will anticipate challenges at the beginning and will try not to be discouraged. To remember the benefits of quitting such as improved health, feeling better about myself, saving money, etc. Reducing stressors and avoiding triggers are essential keys to my success Finding ways to distract myself when I have the urge to smoke such as taking a walk, reading, playing a board game, putting together a puzzle, etc. Taking medications as my healthcare provider has advised to help alleviate the urge to smoke. If I am unable to take the medication, I will discuss further with my healthcare provider. Recognize reasons for relapse in my past attempts. What did and did not work for me Consider connecting with group, individual, or telephone counseling Take all prescribed medications as Self-management No Jayleen Ulloa MD directed Note: This is an individualized self-management goal for Adithya Ferrari: Please take all prescribed medications as directed. 1. Do not skip doses. If you cannot afford your medications, talk with your doctor. 2. Use a pill reminder system such as a pill box if needed. Your pharmacist can help you with this. 3. Contact your Pharmacy 5 days before your medication runs out. If you cannot take your medications for any reasons, talk with your doctor. 4. Please bring all of your medication bottles and inhalers (or a list of all your medications/inhalers) with you to every visit. Potential barriers to meeting all of your care plan goals will continue to be addressed on an ongoing basis. documented as of this encounter Implants Implanted Type Area Mill Tender Device Shelf Expiration Model / Identifier Date Serial / Lot Lifestent 7 X 135 X 200 - [id number] [employer] 08/02/2017 [id number] / Implanted: Qty: 1 on 05/13/2016 by Maggie Rebolledo MD at [facility] / [id number] Description:Distal RIGHT superficial femoral artery. Epic Stent [id number] - [id number] Right: Artery [employer] 2017 [id number] / Implanted: Qty: 1 on 05/13/2016 by Maggie Rebolledo MD at [facility] / [id number] Description:Superficial right femoral artery documented as of this encounter Results Not on filedocumented in this encounter Visit Diagnoses Diagnosis Type 2 diabetes mellitus without complications Type II or unspecified type diabetes mellitus with ophthalmic manifestations, not stated as uncontrolled Mixed hyperlipidemia BMI 31.0-31.9,adult Body Mass Index 31.0-31.9, adult documented in this encounter Guarantor Name Account Type Relation to Date of Phone Billing Patient Address Adithya Ferrari Personal/Family 1945 [address] (Home) [place], [place] [phone] (Work) documented as of this encounter
--- OUTSIDE RECORDS SUMMARY | 2019-08-21 01:38 | XMS REPORT | Continuity of Care Document ---
:1945 External Reference #:[id number] Author Name Sabi Rico DNP, RN, LITHOGRAPHING MACHINE OPERATOR-BC (transmitted by agent of provider Mdaelin Cao) Address [address], [address] [place] [id number] Care Team Providers Name Role Phone Jayleen Ulloa MD - Family Care Team Information Lead Technical Writer Medicine Problems Active Problems Provider Date Obstructive sleep apnea syndrome Sabi Rico DNP RN, LITHOGRAPHING MACHINE OPERATOR-BC Onset: Obesity Sabi Rico DNP, RN, LITHOGRAPHING MACHINE OPERATOR-BC Onset: 12/05/2018 Body mass index 30+ - obesity Sabi Rico DNP, RN, LITHOGRAPHING MACHINE OPERATOR-BC Onset: 2018 Social History Type Date Description [...] day N.P. 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 Sabi Rico, 08/05/2018 Advancement Device appliance DNP, RN, LITHOGRAPHING MACHINE OPERATOR-BC /mandibular Device advancement device for sleep apnea [...] tab mouth Unknown 40mg at bedtime Tablets [place] 3-6-9 1x daily Unknown 1200mg Capsules Metformin [...] Result H/L Range Note Laboratory test 03/31/2019 [facility] TSH 6.05 High 0.34-5.[address] (Thyroid mcIU/[place] [address] Stim Horm) [phone] Free T4 (Free Thyroxine) 0.96 ng/dL Normal 0.61-1.12 Hemoglobin A1c (Glyco HGB) 7.6 % High 4.0-5.6 1 1 Therapeutic target for the treatment of diabetes mellitus patients is <7% HBA1C, and in selective patients <6.0%. Please refer to [place] [employer] diabetic care guidelines for further information. Procedures Date Code Description Status 05/03/2019 34115 Icd Eval Sing,Dual,Multi Lead Remote Recpt Transm Tech Rev Completed Tech S 05/03/2019 96109 Icd Eval Sing,Dual,Multi Lead Remote Recpt Transm Tech Rev Completed Tech S 05/03/2019 73771 Pacemaker Check Remote Up To 90Days Single,Dual,Multiple Completed Lead 05/03/2019 36619 Pacemaker Check Remote Up To 90Days Single,Dual,Multiple Completed Lead 04/19/2019 28753 EKG Tracing & Interpretation Completed 01/23/2019 80479 Pace Maker Eval W/Iterative Adjment Dual Lead Completed 01/23/2019 62913 Pace Maker Eval W/Iterative Adjment Dual Lead Completed Medical Devices Description No Information Available Encounters Type Date Location Provider Dx Diagnosis Office Visit 04/19/2019 [facility] Rajesh Ashley G47.33 Obstructive sleep 1:30p Kalpesh Serrano apnea (adult) (pediatric) E11.65 Type 2 diabetes mellitus with hyperglycemia I49.5 Sick sinus syndrome E66.9 Obesity, unspecified I48.0 Paroxysmal atrial fibrillation I10 Essential (primary) hypertension E78.5 Hyperlipidemia, unspecified Office Visit 04/07/2019 [facility] G47.33 Obstructive sleep 10:45a [facility] Rico, apnea (adult) Chris RN, [facility]- (pediatric) Office Visit 03/31/2019 [facility] Coch, E11.65 Type 2 diabetes 12:00p and Endocrinology MD mellitus with of Chris hyperglycemia E03.9 Hypothyroidism, unspecified Z79.84 manufacturing coordinator (current) use of oral hypoglycemic drugs Z68.31 Body mass index (BMI) 31.0-31.9, adult Assessments Date Code Description Provider 07/04/2019 G47.33 Obstructive sleep apnea (adult) Sabi Rico DNP, RN, (pediatric) LITHOGRAPHING MACHINE OPERATOR-BC 07/04/2019 F17.210 Nicotine dependence, cigarettes, Sabi Rico DNP, RN , uncomplicated LITHOGRAPHING MACHINE OPERATOR-BC 05/03/2019 I49.5 Sick sinus syndrome Rajesh Serrano [...] apnea (adult) Sabi Rico DNP, RN, (pediatric) [facility] 03/31/2019 E11.65 Type 2 diabetes mellitus with Jagdish Yuen MD hyperglycemia 03/31/2019 E03.9 Hypothyroidism, unspecified Jagdish Yuen MD 03/31/2019 Z79.84 manufacturing coordinator (current) use of oral Jagdish Yuen MD hypoglycemic drugs 03/31/2019 Z68.31 Body mass index (BMI) 31.0-31.9, Jagdish Yuen MD adult 01/23/2019 I49.5 Sick sinus syndrome Ica Pacer Schedule 01/23/2019 Z95.0 Presence of cardiac pacemaker Rajesh Serrano M.D. 01/23/2019 Z95.0 Presence of cardiac pacemaker Ica Pacer Schedule Plan of Treatment Future Appointment(s):10/03/2019 1:45 pm - Sabi Rico DNP, RN, [facility] at [facility]08/01/2019 2:40 pm - Rajesh Serrano M.D. at [facility]07/04/2019 - Sabi Rico DNP, RN, LITHOGRAPHING MACHINE OPERATOR-BCG47.33 Obstructive sleep apnea (adult) (pediatric)New Orders:Sleep Study, [...] or other modality to quit. Check with [facility] Quit line about covered options. Discuss with PCP about the low dose CT screening for lung cancer for people with tobacco use disorder. Functional Status Description No Information Available Mental Status Description No Information Available Referrals Description No Information Available
[2019-08-21 04:19] LABS: ABS Basophils 0.1 10^3/ul (0-0.2); ABS Eosinophils 0.1 10^3/ul (0-0.6); ABS Lymphocytes 0.9 10^3/ul (1.0-4.8); ABS Monocytes 0.4 10^3/ul (0-0.8); ABS Neutrophils 4.4 10^3/ul (1.5-7.7); Eosinophil % 1.3 %; Hematocrit 37 % (42-52); Hemoglobin 12.1 g/dL (14.0-18.0); Lymphocyte % 15.1 %; Mean Corpuscular HGB Conc 33 g/dL (31-36); Mean Corpuscular Hemoglobin 25 pg (27-31); Mean Corpuscular Volume 76 fL (80-94); Mean Platelet Volume 8.2 fL (7.4-10.4); Nucleated Red Blood Cells % 0.1; Platelet Count 211 10^3/uL (150-450); Red Blood Count 4.84 10^6 /uL (4.18-5.48); Red Cell Distribution Width 15 % (10-15); White Blood Count 5.7 10^3/uL (3.5-10.8)
[2019-08-21 04:25] LABS: INR 1.22 (0.82-1.09)
[2019-08-21 04:38] LABS: Albumin 3.9 g/dL (3.2-5.2); Albumin/Globulin Ratio 1.4 (1-3); BUN/Creatinine Ratio 17.3 (8-20); Calcium 9.1 mg/dL (8.6-10.3); EGFR African American 79.4 (>60); EGFR Non-African American 65.6 (>60); Globulin 2.7 g/dL (2-4); Potassium 3.8 mmol/L (3.5-5.0); Total Bilirubin 0.9 mg/dL (0.2-1.0); Total Protein 6.6 g/dL (6.4-8.9)
--- NOTE | 2019-08-21 04:43 | ED ---
Respiratory - HPI Summary HPI Summary: The patient is a 74 y/o male presenting to [facility] with a chief complaint of respiratory symptoms over the last week. He reports that he has had a persistent productive cough with moderate phlegm production as well as post- nasal drip. He notes pain from his shoulders to his hips bilaterally, and pain in his chest described as feeling of being kicked in the chest. He endorses chills and SOB but denies any fever, nausea, vomiting, or diarrhea. He has been using Nyquil to no relief of his symptoms, which are currently rated 8/10 in severity. He notes that these symptoms are similar to when he had PNA a year ago. He does not have an inhaler or nebulizer at home. PMHx: DM, pacemaker, HTN , thyroid disease, HLD, PVD, COPD, sleep apnea. FHx: cardiac disease, diabetes. Current smoker, occasional EtOH, no substance use. Medications reviewed. Allergies noted. - History of Current Complaint Chief Complaint: EDUpperRespComplaint Stated Complaint: PNA PER PT Time Seen by Provider: 08/21/19 04:08 Hx Obtained From: Patient Onset/Duration: Gradual Onset, Lasting Days - one week, Still Present Timing: Constant Initial Severity: Moderate Current Severity: Severe Pain Intensity: 8 Character: Cough (Productive) Sputum Amount: Moderate Aggravating Factor(s): Nothing Alleviating Factor(s): Nothing Associated Signs and Symptoms: SOB, Chest Pain with Cough, Chills - Allergy/Home Medications Allergies/Adverse Reactions: Allergies Allergy/AdvReac Type Severity Reaction Status Date / Time onion Allergy NAUSEA, Verified 08/21/19 01:29 STOMACHE ACHE PMH/Surg Hx/FS Hx/Imm Hx Endocrine/Hematology History: Reports: Hx Diabetes - Type 2, Hx Thyroid Disease - ON DAILY MEDS Cardiovascular History: Reports: Hx Hypercholesterolemia, Hx Hypertension - ON DAILY MEDS, Hx Pacemaker/ICD - SINCE 2017, Hx Peripheral Vascular Disease - RT LEG SENT, LEFT LEG AT KNEE "STATES WILL NEED SURGERY", Other Cardiovascular Problems/Disorders - Hx stent in right leg Respiratory History: Reports: Hx Chronic Obstructive Pulmonary Disease (COPD), Hx Pneumonia, Hx Sleep Apnea GI History: Reports: Hx Gastroesophageal Reflux Disease - ON MEDICATION FOR Musculoskeletal History: Reports: Hx Tendonitis - THUMBS-BILATERALLY Sensory History: Reports: Hx Cataracts - RIGHT, Hx Contacts or Glasses - GLASSES Denies: Hx Hearing Aid Opthamlomology History: Reports: Hx Cataracts - RIGHT, Hx Contacts or Glasses - GLASSES - Surgical History Surgical History: Yes Surgery Procedure, Year, and Place: 2014 stent rt leg, [facility]. 2017 PACEMAKER INSERTION [facility] Hx Anesthesia Reactions: No Infectious Disease History: No Infectious Disease History: Denies: Traveled Outside the [place] in Last 30 Days - Family History Known Family History: Positive: Hypertension, Diabetes Family History: Father: prostate CA - Social History Alcohol Use: Occasionally Alcohol Amount: 1-3 DRINKS PER MONTH MAYBE Substance Use Type: Reports: None Hx Tobacco Use: Yes Smoking Status (MU): Current Every Day Smoker Type: Cigarettes Amount Used/How Often: 1/2 PPD CURRENTLY, USE TO SMOKE 3-4PPD Have You Smoked in the Last Year: Yes - Additional Comments History Additional Comments: diabetes, pacemaker, HTN, thyroid disease, HLD, PVD, COPD, sleep apnea, current smoker Review of Systems - ROS Summary Review of Systems Summary: Home Medications Medication Instructions Recorded Confirmed Type Cilostazol TAB* [Pletal TAB*] 100 mg PO BID 12/13/17 08/21/19 History Fish Oil/Borage/Flax/Om3,6,9 1 1,200 mg PO QAM 12/13/17 08/21/19 History [[place] 3-6-9 1,200 mg Softgel] metFORMIN* [Glucophage 1000 MG TAB 1,000 mg PO BID 12/13/17 08/21/19 History *] Fenofibrate(NF) [Tricor(NF)] 145 mg PO QAM 01/12/18 08/21/19 History Fluticasone NASAL SPRAY 50MCG* 2 spray BOTH NARES QAM PRN 01/12/18 08/21/19 History [Flonase NASAL SPRAY 50MCG*] Levothyroxine TAB* [Synthroid TAB*] 75 mcg PO QAM 01/12/18 08/21/19 History Lisinopril TAB* [Prinivil TAB 10 20 mg PO BID 01/12/18 08/21/19 History MG*] Omeprazole CAP (NF) [Prilosec CAP* 20 mg PO QAM 01/12/18 08/21/19 History 20 MG] Simvastatin (NF) [Zocor (NF)] 40 mg PO QAM 01/12/18 08/21/19 History glipiZIDE TAB* [Glucotrol TAB*] 10 mg PO BID 01/12/18 08/21/19 History Acetaminophen TAB* [Tylenol TAB*] 650 mg PO Q6H PRN 03/11/18 08/21/19 History Potassium Gluconate [Potassium] 99 mg PO QAM 08/09/18 08/21/19 History Apixaban [Eliquis] 5 mg PO BID 08/16/18 08/21/19 History Aspirin 81 mg CHEW TAB* [Aspirin 81 mg PO DAILY 01/12/19 08/21/19 History Low Dose TAB*] Metoprolol Succinate XL TAB* 25 mg PO BID 01/12/19 08/21/19 History [Toprol XL TAB*] Amoxicillin/Clavulanate TAB* 875 mg PO BID #14 tab 08/21/19 Rx [Augmentin TAB 875*] predniSONE [Prednisone 20 MG TAB] 40 mg PO DAILY #10 tablet 08/21/19 Rx Negative: Fever Positive: Chest Pain - secondary to cough Positive: Shortness Of Breath, Cough - productive Negative: Vomiting, Diarrhea, Nausea Positive: Myalgia - shoulders to hips bilateral All Other Systems Reviewed And Are Negative: Yes Physical Exam - Summary Physical Exam Summary: General: Well-developed, Well-nourished elderly male. Not ill-appearing. No acute distress. HEENT: Normocephalic, Atraumatic. Eyes: Conjuctiva normal, PERRL. Oropharynx: Clear, mucous membranes moist, (-) exudates. Neck: Soft, FROM, (-) lymphadenopathy, (-) thyromegaly, (-) JVD. Cardiovascular: Normal sinus rhythm, (-) murmur. Lungs: Decreased air exchange in lungs bilaterally, Mild tight wheezing throughout, (-) rales, (-) rhonchi. Abdomen: Soft, non-tender, non-distended, (-) organomegaly, normal bowel sounds. Back: (-) CVA tenderness Extremities: No edema. Skin: Warm, dry, (-) rash. Neuro: Alert and oriented x3, moves all extremities equally. No ataxia. No gait disturbance. No sensory deficit. No amnesia. Psychiatric: Mood normal, affect normal. Triage Information Reviewed: Yes Vital Signs On Initial Exam: Initial Vitals Temp Pulse Resp BP Pulse Ox 98.5 F 85 16 159/87 95 08/21/19 01:28 08/21/19 01:28 08/21/19 01:28 08/21/19 01:28 08/21/19 01:28 Vital Signs Reviewed: Yes Procedures - Sedation Patient Received Moderate/Deep Sedation with Procedure: No Diagnostics - Vital Signs Vital Signs Temp Pulse Resp BP Pulse Ox 08/21/19 04:14 97.8 F 85 19 148/85 95 08/21/19 03:41 98.5 F 85 16 138/64 95 08/21/19 01:28 98.5 F 85 16 159/87 95 - Laboratory Lab Results: Lab Results 08/21/19 08/21/19 Range/Units 04:08 04:08 WBC 5.7 (3.5-10.8) 10^3/uL RBC 4.84 (4.18-5.48) 10^6 /uL Hgb 12.1 L (14.0-18.0) g/dL Hct 37 L (42-52) % MCV 76 L (80-94) fL MCH 25 L (27-31) pg MCHC 33 (31-36) g/dL RDW 15 (10-15) % Plt Count 211 (150-450) 10^3/uL MPV 8.2 (7.4-10.4) fL Neut % (Auto) 76.4 % Lymph % (Auto) 15.1 % [place] % (Auto) 6.2 % Eos % (Auto) 1.3 % Baso % (Auto) 1.0 % Absolute Neuts (auto) 4.4 (1.5-7.7) 10^3/ul Absolute Lymphs (auto) 0.9 L (1.0-4.8) 10^3/ul Absolute Monos (auto) 0.4 (0-0.8) 10^3/ul Absolute Eos (auto) 0.1 (0-0.6) 10^3/ul Absolute Basos (auto) 0.1 (0-0.2) 10^3/ul Absolute Nucleated RBC 0.0 10^3/ul Nucleated RBC % 0.1 INR (Anticoag Therapy) 1.22 H (0.82-1.09) Result Diagrams: 08/21/19 04:08 08/21/19 04:08 Lab Statement: Any lab studies that have been ordered have been reviewed, and results considered in the medical decision making process. - Radiology CXR Radiology Interpretation Completed By: ED Physician - No infiltrate. No pleural effusion. Summary of Radiographic Findings: ED physician has reviewed and interpreted this report. Pending official read. Re-Evaluation - Re-Evaluation First Eval Re-Evaluation Time: 05:30 Change: Improved Comment: Patient improved with breathing treatment, helped 10%. I have discussed results with the patient. Discussed symptoms that warrant immediate return to ED. Disposition - Course Course Of Treatment: Patient administered Duoneb, Prednisone, Augmentin, and Albuterol inhaler. - Diagnoses Provider Diagnoses: Tobacco use disorder, Bronchospasm with bronchitis, acute Discharge ED - Sign-Out/Discharge Documenting (check all that apply): Patient Departure - Patient will be discharged home. - Discharge Plan Condition: Stable Disposition: HOME Prescriptions: Amoxicillin/Clavulanate TAB* [Augmentin TAB 875*] 875 mg PO BID #14 tab predniSONE [Prednisone 20 MG TAB] 40 mg PO DAILY #10 tablet Patient Education Materials: How to Stop Smoking (ED), Acute Bronchitis (ED), Bronchospasm (ED) Referrals: Jayleen Ulloa MD [Primary Care Provider] - 3 Days Additional Instructions: Please take medications as prescribed. Please follow up with your primary care physician within three days. Please return to ED for any new or worsening symptoms. - Attestation Statements Document Initiated by Scribe: Yes Documenting Scribe: Kaelyn Burnett Provider For Whom Scribe is Documenting (Include Credential): Dr. Ирина Cuevas MD Scribe Attestation: Kaelyn Cowan scribed for Dr. Ирина Cuevas MD on 08/21/19 at 0712. Status of Scribe Document: Ready
[2019-08-21 06:14] VITALS: BP 130/72
== END | disposition home or self-care (01) ==
LOC: ED 01:26
DX: J20.9 Acute bronchitis, unspecified (principal); E11.9 Type 2 diabetes mellitus without complications; Z79.84 Long term (current) use of oral hypoglycemic drugs; E07.9 Disorder of thyroid, unspecified; E78.00 Pure hypercholesterolemia, unspecified; I10 Essential (primary) hypertension; J44.9 Chronic obstructive pulmonary disease, unspecified; Z79.82 Long term (current) use of aspirin; K21.9 Gastro-esophageal reflux disease without esophagitis; Z95.810 Presence of automatic (implantable) cardiac defibrillator; F17.210 Nicotine dependence, cigarettes, uncomplicated
CPT/HCPCS: 36415; 71046; 80053; 83605; 83880; 84484; 85025; 85610; 87040; 99283; A9270-GY; J7512

== ENCOUNTER 2020-04-26 14:51 | Inpatient (IN) ==
[2020-04-26 15:54] LABS: INR 1.26 (0.82-1.09)
[2020-04-26 15:56] LABS: ABS Lymphocytes 0.7 10^3/ul (1.0-4.8); ABS Monocytes 0.3 10^3/ul (0-0.8); ABS Neutrophils 5.6 10^3/ul (1.5-7.7); Albumin/Globulin Ratio 1.5 (1-3); BUN/Creatinine Ratio 21.8 (8-20); Calcium 8.9 mg/dL (8.6-10.3); EGFR African American 103.8 (>60); EGFR Non-African American 85.8 (>60); Eosinophil % 0.5 %; Globulin 2.7 g/dL (2-4); Hematocrit 38 % (42-52); Hemoglobin 12.6 g/dL (14.0-18.0); Lymphocyte % 10.4 %; Mean Corpuscular HGB Conc 33 g/dL (31-36); Mean Corpuscular Hemoglobin 25 pg (27-31); Mean Corpuscular Volume 74 fL (80-94); Platelet Count 196 10^3/uL (150-450); Potassium 3.8 mmol/L (3.5-5.0); Red Blood Count 5.14 10^6 /uL (4.18-5.48); Red Cell Distribution Width 18 % (10-15); Total Bilirubin 1.1 mg/dL (0.2-1.0); Total Protein 6.7 g/dL (6.4-8.9); White Blood Count 6.7 10^3/uL (3.5-10.8)
[2020-04-26 17:31] LABS: C Reactive Protein 24.08 mg/L (<8.01)
[2020-04-26] MEDS ORDERED: Ondansetron 4 mg VIAL 2 MG/ML 2 ml VIAL IV ONE (18:35)
[2020-04-26] MEDS ORDERED: Ondansetron 4 mg VIAL 2 MG/ML 2 ml VIAL IV PRN (21:54)
[2020-04-26] MEDS ORDERED: Morphine 2 MG/ML SYRINGE IV PRN (21:54)
[2020-04-26] MEDS ORDERED: Fluticasone NASAL SPRAY 50MCG 16 gm SPRAY BTL BOTH NARES PRN (22:01)
[2020-04-26] MEDS ORDERED: Piperacillin/Tazobac ADVAN 3.375 GM in NS 0.9% 100 ml BAG 100 ML IV ONE (22:35)
[2020-04-26] MEDS ORDERED: Zosyn per Pharmacy NOTE FOLLOW UP SCH (23:00)
[2020-04-26] MEDS ORDERED: Albuterol HFA INHALER 8 gm MDI INH PRN (23:50)
[2020-04-27] MEDS: ZOSYN 3.375 GM Q8H per EXTENDED INFUSION IV SCH ×3 (04:13→19:46)
[2020-04-27 07:06] LABS: ABS Eosinophils 0.1 10^3/ul (0-0.6); ABS Lymphocytes 0.8 10^3/ul (1.0-4.8); ABS Monocytes 0.5 10^3/ul (0-0.8); ABS Neutrophils 5.9 10^3/ul (1.5-7.7); Eosinophil % 1.7 %; Hematocrit 35 % (42-52); Hemoglobin 11.6 g/dL (14.0-18.0); Lymphocyte % 11.4 %; Mean Corpuscular HGB Conc 33 g/dL (31-36); Mean Corpuscular Hemoglobin 24 pg (27-31); Mean Corpuscular Volume 74 fL (80-94); Mean Platelet Volume 8.7 fL (7.4-10.4); Platelet Count 168 10^3/uL (150-450); Red Blood Count 4.74 10^6 /uL (4.18-5.48); Red Cell Distribution Width 18 % (10-15); White Blood Count 7.4 10^3/uL (3.5-10.8)
[2020-04-27 07:14] LABS: Albumin 3.6 g/dL (3.2-5.2); Albumin/Globulin Ratio 1.4 (1-3); BUN/Creatinine Ratio 17.3 (8-20); Calcium 8.7 mg/dL (8.6-10.3); EGFR African American 84.5 (>60); EGFR Non-African American 69.8 (>60); Globulin 2.5 g/dL (2-4); Potassium 3.8 mmol/L (3.5-5.0); Total Bilirubin 4.3 mg/dL (0.2-1.0); Total Protein 6.1 g/dL (6.4-8.9)
[2020-04-27] MEDS ORDERED: Dextrose 50% Syringe 50 ml 25 GM/50 ML SYRINGE IV PUSH PRN (07:18)
[2020-04-27] MEDS: Mometasone/Formoter 200/5 MDI INH SCH ×2 (08:10→20:02)
[2020-04-27] MEDS ORDERED: NFT: Dulaglutide (NF) 0.75 MG/0.5 ML SYRINGE SUBCUT SCH (09:00)
[2020-04-27] MEDS: CMCS: Fenofibrate 145 mg TAB (NF) PO SCH (10:16)
[2020-04-27 13:54] LABS: Magnesium 1.6 mg/dL (1.9-2.7)
[2020-04-27] MEDS ORDERED: Magnesium Sulfate IV 3 GM in NS 0.9% 100 ml BAG 100 ML IVPB ONE (16:21)
[2020-04-27] MEDS ORDERED: NS 0.9% 100 ml BAG 100 ML ONE (17:04)
[2020-04-27] MEDS: Enoxaparin 100 MG/ML SYR SUBCUT SCH (17:08)
[2020-04-28] MEDS: ZOSYN 3.375 GM Q8H per EXTENDED INFUSION IV SCH ×3 (03:44→19:56)
[2020-04-28] MEDS: Enoxaparin 100 MG/ML SYR SUBCUT SCH (03:44)
[2020-04-28 06:22] LABS: ABS Eosinophils 0.2 10^3/ul (0-0.6); ABS Monocytes 0.6 10^3/ul (0-0.8); ABS Neutrophils 4.6 10^3/ul (1.5-7.7); Eosinophil % 3.6 %; Hematocrit 33 % (42-52); Hemoglobin 10.9 g/dL (14.0-18.0); Lymphocyte % 15.6 %; Mean Corpuscular HGB Conc 33 g/dL (31-36); Mean Corpuscular Hemoglobin 24 pg (27-31); Mean Corpuscular Volume 74 fL (80-94); Mean Platelet Volume 9.1 fL (7.4-10.4); Platelet Count 165 10^3/uL (150-450); Red Blood Count 4.49 10^6 /uL (4.18-5.48); Red Cell Distribution Width 17 % (10-15); White Blood Count 6.5 10^3/uL (3.5-10.8)
[2020-04-28 06:37] LABS: Albumin 3.3 g/dL (3.2-5.2); Albumin/Globulin Ratio 1.3 (1-3); BUN/Creatinine Ratio 19.6 (8-20); Calcium 8.4 mg/dL (8.6-10.3); EGFR African American 81.7 (>60); EGFR Non-African American 67.6 (>60); Globulin 2.5 g/dL (2-4); Indirect Bilirubin 0.7 mg/dL (0.3-1.0); Potassium 3.6 mmol/L (3.5-5.0); Total Bilirubin 1.7 mg/dL (0.2-1.0); Total Protein 5.8 g/dL (6.4-8.9)
[2020-04-28] MEDS: Mometasone/Formoter 200/5 MDI INH SCH ×2 (07:52→20:22)
[2020-04-28] MEDS: CMCS: Fenofibrate 145 mg TAB (NF) PO SCH (09:09)
[2020-04-29] MEDS: NS 0.9% 1000 ml BAG 1,000 ML IV SCH ×3 (00:06→19:55)
[2020-04-29] MEDS: ZOSYN 3.375 GM Q8H per EXTENDED INFUSION IV SCH ×3 (03:58→19:55)
[2020-04-29 06:53] LABS: ABS Eosinophils 0.1 10^3/ul (0-0.6); ABS Lymphocytes 0.6 10^3/ul (1.0-4.8); ABS Monocytes 0.5 10^3/ul (0-0.8); ABS Neutrophils 6.3 10^3/ul (1.5-7.7); Eosinophil % 0.8 %; Hematocrit 33 % (42-52); Hemoglobin 10.8 g/dL (14.0-18.0); INR 1.05 (0.82-1.09); Lymphocyte % 7.5 %; Mean Corpuscular HGB Conc 33 g/dL (31-36); Mean Corpuscular Hemoglobin 24 pg (27-31); Mean Corpuscular Volume 74 fL (80-94); Mean Platelet Volume 9.1 fL (7.4-10.4); Platelet Count 158 10^3/uL (150-450); Red Blood Count 4.48 10^6 /uL (4.18-5.48); Red Cell Distribution Width 18 % (10-15); White Blood Count 7.4 10^3/uL (3.5-10.8)
[2020-04-29 06:57] LABS: Albumin 3.4 g/dL (3.2-5.2); Albumin/Globulin Ratio 1.3 (1-3); BUN/Creatinine Ratio 18.4 (8-20); Calcium 8.6 mg/dL (8.6-10.3); EGFR Non-African American 62.8 (>60); Globulin 2.6 g/dL (2-4); Magnesium 1.8 mg/dL (1.9-2.7); Potassium 4.1 mmol/L (3.5-5.0); Total Bilirubin 3.4 mg/dL (0.2-1.0)
[2020-04-29] MEDS: Mometasone/Formoter 200/5 MDI INH SCH ×2 (07:37→19:19)
[2020-04-29] MEDS ORDERED: Magnesium Sulfate 2 gm BAG 2 GM/50 ML BAG IVPB ONE (07:47)
[2020-04-29] MEDS ORDERED: Rocuronium 50 mg VIAL 10 mg/ml 5 ml VIAL (50 mg) ONE (10:11)
[2020-04-29] MEDS ORDERED: fentaNYL 250 mcg/5 ml 50 MCG/ML 5 ml VIAL (250 MCG) ONE (10:11)
[2020-04-29] MEDS ORDERED: Buffered Lidocaine 1% SYRIN 1 ml INTRADERM ONE (10:12)
[2020-04-29] MEDS ORDERED: Dexamethasone IV 4 MG/ML VIAL 1 ml VIAL ONE (10:12)
[2020-04-29] MEDS ORDERED: Midazolam 2 mg/2 ml VIAL 1 mg/ml 2 ml VIAL (2 mg) ONE (10:12)
[2020-04-29] MEDS ORDERED: Lidocaine 2% PF 5 ML VIAL ONE (10:12)
[2020-04-29] MEDS ORDERED: Propofol 10 MG/ML 20 ML BTL ONE (10:12)
[2020-04-29] MEDS ORDERED: Phenylephrine 40 mcg/mL 10mL (400mcg) SYRINGE ONE (10:12)
[2020-04-29] MEDS ORDERED: Iodixanol (CONTRAST) 320 MG/ML 100 ML SDV IV ONE (12:49)
[2020-04-29] MEDS: CMCS: Fenofibrate 145 mg TAB (NF) PO SCH (13:24)
[2020-04-30] MEDS: ZOSYN 3.375 GM Q8H per EXTENDED INFUSION IV SCH ×3 (03:44→20:07)
[2020-04-30] MEDS: NS 0.9% 1000 ml BAG 1,000 ML IV SCH ×2 (06:09→20:08)
[2020-04-30 08:37] LABS: Hematocrit 33 % (42-52); Hemoglobin 10.8 g/dL (14.0-18.0); Mean Corpuscular HGB Conc 33 g/dL (31-36); Mean Corpuscular Hemoglobin 24 pg (27-31); Mean Corpuscular Volume 74 fL (80-94); Platelet Count 177 10^3/uL (150-450); Red Blood Count 4.51 10^6 /uL (4.18-5.48); Red Cell Distribution Width 18 % (10-15); White Blood Count 5.2 10^3/uL (3.5-10.8)
[2020-04-30] MEDS: Mometasone/Formoter 200/5 MDI INH SCH ×2 (08:38→20:53)
[2020-04-30 08:45] LABS: Albumin 3.4 g/dL (3.2-5.2); Albumin/Globulin Ratio 1.3 (1-3); BUN/Creatinine Ratio 20.2 (8-20); Calcium 8.7 mg/dL (8.6-10.3); EGFR African American 89.4 (>60); EGFR Non-African American 73.9 (>60); Globulin 2.7 g/dL (2-4); Potassium 4.2 mmol/L (3.5-5.0); Total Bilirubin 1.6 mg/dL (0.2-1.0); Total Protein 6.1 g/dL (6.4-8.9)
[2020-04-30] MEDS: CMCS: Fenofibrate 145 mg TAB (NF) PO SCH (14:21)
[2020-04-30] MEDS ORDERED: Sodium Citrate/Citric Acid LIQ 15 ML UDC PO ONE (16:31)
[2020-04-30] MEDS ORDERED: Famotidine IV 10 MG/ML 2 ml VIAL (20 mg) IV SLOW PU ONE (16:31)
[2020-04-30] MEDS ORDERED: Famotidine IV 10 MG/ML 2 ml VIAL (20 mg) ONE (16:35)
[2020-04-30] MEDS ORDERED: Sodium Citrate/Citric Acid LIQ 15 ML UDC ONE (16:36)
[2020-04-30] MEDS ORDERED: fentaNYL 250 mcg/5 ml 50 MCG/ML 5 ml VIAL (250 MCG) ONE (16:43)
[2020-04-30] MEDS ORDERED: Rocuronium 50 mg VIAL 10 mg/ml 5 ml VIAL (50 mg) ONE (16:43)
[2020-04-30] MEDS ORDERED: Midazolam 2 mg/2 ml VIAL 1 mg/ml 2 ml VIAL (2 mg) ONE (16:44)
[2020-04-30] MEDS ORDERED: Propofol 10 MG/ML 20 ML BTL ONE (16:45)
[2020-04-30] MEDS ORDERED: Dexamethasone IV 4 MG/ML VIAL 1 ml VIAL ONE (16:45)
[2020-04-30] MEDS ORDERED: Sterile Water for Inj 10 ML ONE (16:45)
[2020-04-30] MEDS ORDERED: EPHEDrine (Pressors) 50 MG/ML VIAL ONE (16:45)
[2020-04-30] MEDS ORDERED: Phenylephrine 40 mcg/mL 10mL (400mcg) SYRINGE ONE (16:46)
[2020-04-30] MEDS ORDERED: Lidocaine 2% PF 5 ML VIAL ONE (16:46)
[2020-04-30] MEDS ORDERED: Indomethacin 50 mg SUPP (NF) PR ONE (17:21)
[2020-04-30] MEDS ORDERED: Sugammadex 500 MG/5 ML 5 ml VIAL IV PUSH ONE (18:14)
[2020-04-30] MEDS ORDERED: Ondansetron 4 mg VIAL 2 MG/ML 2 ml VIAL ONE (18:14)
[2020-04-30] MEDS ORDERED: fentaNYL 100 mcg/2 ml 50 MCG/ML VIAL IV PRN (18:54)
[2020-04-30] MEDS ORDERED: Naloxone 0.4 mg VIAL 0.4 mg/ml 1 ml VIAL IV PRN (18:54)
[2020-04-30] MEDS ORDERED: Ondansetron 4 mg VIAL 2 MG/ML 2 ml VIAL IV PRN (18:54)
[2020-04-30] MEDS ORDERED: Albuterol/Ipratropium NEB.SOL (2.5/0.5 MG) 3 ML NEB.SOLN INH ONE (18:55)
[2020-05-01] MEDS: ZOSYN 3.375 GM Q8H per EXTENDED INFUSION IV SCH (03:22)
[2020-05-01] MEDS ORDERED: Lactated Ringers 1000 ml BAG 1,000 ML IV SCH (06:00)
[2020-05-01] MEDS ORDERED: Buffered Lidocaine 1% SYRIN 1 ml INTRADERM ONE (06:00)
[2020-05-01 07:21] LABS: Hematocrit 36 % (42-52); Hemoglobin 10.9 g/dL (14.0-18.0); Mean Corpuscular HGB Conc 30 g/dL (31-36); Mean Corpuscular Hemoglobin 25 pg (27-31); Mean Corpuscular Volume 82 fL (80-94); Mean Platelet Volume 9.3 fL (7.4-10.4); Platelet Count 161 10^3/uL (150-450); Red Blood Count 4.42 10^6 /uL (4.18-5.48); Red Cell Distribution Width 19 % (10-15); White Blood Count 4.5 10^3/uL (3.5-10.8)
[2020-05-01 07:27] LABS: Albumin 3.5 g/dL (3.2-5.2); Albumin/Globulin Ratio 1.3 (1-3); BUN/Creatinine Ratio 24.2 (8-20); Calcium 8.4 mg/dL (8.6-10.3); EGFR African American 89.4 (>60); EGFR Non-African American 73.9 (>60); Globulin 2.6 g/dL (2-4); Potassium 4.2 mmol/L (3.5-5.0); Total Bilirubin 1.3 mg/dL (0.2-1.0); Total Protein 6.1 g/dL (6.4-8.9)
[2020-05-01] MEDS: Mometasone/Formoter 200/5 MDI INH SCH (08:29)
[2020-05-01] MEDS: CMCS: Fenofibrate 145 mg TAB (NF) PO SCH (09:59)
[2020-05-01] MEDS ORDERED: fentaNYL 100 mcg/2 ml 50 MCG/ML VIAL ONE ×3 (12:10→16:17)
[2020-05-01] MEDS ORDERED: Lidocaine 2% PF 5 ML VIAL ONE (12:12)
[2020-05-01] MEDS ORDERED: Rocuronium 50 mg VIAL 10 mg/ml 5 ml VIAL (50 mg) ONE ×2 (12:12→15:04)
[2020-05-01] MEDS ORDERED: Propofol 10 MG/ML 20 ML BTL ONE (12:12)
[2020-05-01] MEDS ORDERED: Bupivacaine 0.25% SDV 30 ML ONE (12:43)
[2020-05-01] MEDS ORDERED: hydrALAZINE 20 mg/ml 1 ML Vial IV ONE (13:52)
[2020-05-01] MEDS ORDERED: fentaNYL 250 mcg/5 ml 50 MCG/ML 5 ml VIAL (250 MCG) ONE (14:44)
[2020-05-01] MEDS ORDERED: HYDROmorphone 1 MG/1 ML SYRINGE IV PRN (14:49)
[2020-05-01] MEDS ORDERED: Naloxone 0.4 mg VIAL 0.4 mg/ml 1 ml VIAL IV PRN (14:49)
[2020-05-01] MEDS ORDERED: Ondansetron 4 mg VIAL 2 MG/ML 2 ml VIAL IV PRN (14:49)
[2020-05-01] MEDS: fentaNYL 100 mcg/2 ml 50 MCG/ML VIAL IV PRN ×3 (16:17→16:34)
[2020-05-01 18:11] VITALS: BP 150/77
== END 2020-05-01 18:15 | disposition home or self-care (01) | DRG 419 ==
LOC: MED 14:51 → ED 14:51 → MED 04-27 00:11
PROVIDERS: ADMIT Internal Medicine; ATTEND Surgery Surgical Critical Care

== ENCOUNTER 2021-07-12 12:36 | Inpatient (IN) ==
[2021-07-12] MEDS ORDERED: cefTRIAXone 1 gm/50 mL NS BAG 1 GM/50 ML BAG IV ONE (14:57)
[2021-07-12] MEDS ORDERED: Azithromycin 500 mg/250 ml NS 500 MG/250 ML BAG IVPB ONE (14:57)
[2021-07-12] MEDS ORDERED: Dexamethasone IV 4 MG/ML VIAL 1 ml VIAL IV SLOW PU ONE (14:57)
[2021-07-12 15:00] LABS: Influenza A Molecular Negative (Negative); Influenza B Molecular Negative (Negative)
[2021-07-12 15:23] LABS: Venous Bicarbonate HCO3 19.9 mmol/L (24-28)
[2021-07-12 15:48] LABS: ABS Lymphocytes 0.4 10^3/ul (1.0-4.8); ABS Monocytes 0.2 10^3/ul (0-0.8); ABS Neutrophils 1.7 10^3/ul (1.5-7.7); Eosinophil % 0.6 %; Hematocrit 32 % (42-52); Hemoglobin 10.6 g/dL (14.0-18.0); Mean Corpuscular HGB Conc 33 g/dL (31-36); Mean Corpuscular Hemoglobin 27 pg (27-31); Mean Corpuscular Volume 82 fL (80-94); Mean Platelet Volume 8.9 fL (7.4-10.4); Nucleated Red Blood Cells % 0.1; Platelet Count 76 10^3/uL (150-450); Red Cell Distribution Width 21 % (10-15); White Blood Count 2.3 10^3/uL (3.5-10.8)
[2021-07-12 15:51] LABS: Activated Partial Thrombo Time 37.1 seconds (26.0-38.0); INR 1.6 (0.86-1.15)
[2021-07-12 15:53] LABS: Albumin 3.3 g/dL (3.2-5.2); Albumin/Globulin Ratio 1.1 (1-3); C Reactive Protein 156.76 mg/L (<8.01); Calcium 8.3 mg/dL (8.6-10.3); Potassium 3.6 mmol/L (3.5-5.0); Total Bilirubin 0.5 mg/dL (0.2-1.0); Total Protein 6.3 g/dL (6.4-8.9)
[2021-07-12 15:55] LABS: Troponin I 0.02 ng/mL (<0.03)
[2021-07-12] MEDS ORDERED: Fluticasone NASAL SPRAY 50MCG 16 gm SPRAY BTL BOTH NARES PRN (18:24)
[2021-07-12] MEDS ORDERED: Dextrose 50% Syringe 50 ml 25 GM/50 ML SYRINGE IV PUSH PRN (18:27)
[2021-07-12] MEDS ORDERED: Remdesivir 100 mg Vial 200 MG in NS 0.9% 250 ml 210 ML IV ONE (19:30)
[2021-07-12] MEDS: OMEGA PO SCH (20:42)
[2021-07-12] MEDS: FATTY ACID PO SCH (20:42)
[2021-07-13 06:15] LABS: ABS Lymphocytes 0.2 10^3/ul (1.0-4.8); ABS Monocytes 0.1 10^3/ul (0-0.8); ABS Neutrophils 0.9 10^3/ul (1.5-7.7); Hematocrit 30 % (42-52); Lymphocyte % 16.5 %; Mean Corpuscular HGB Conc 33 g/dL (31-36); Mean Corpuscular Hemoglobin 27 pg (27-31); Mean Corpuscular Volume 81 fL (80-94); Mean Platelet Volume 8.6 fL (7.4-10.4); Nucleated Red Blood Cells % 0.3; Platelet Count 86 10^3/uL (150-450); Red Blood Count 3.69 10^6 /uL (4.18-5.48); Red Cell Distribution Width 20 % (10-15); White Blood Count 1.2 10^3/uL (3.5-10.8)
[2021-07-13 06:18] LABS: INR 1.37 (0.86-1.15)
[2021-07-13 06:26] LABS: Albumin 3.2 g/dL (3.2-5.2); Albumin/Globulin Ratio 1.1 (1-3); Calcium 8.3 mg/dL (8.6-10.3); Globulin 2.9 g/dL (2-4); Potassium 4.2 mmol/L (3.5-5.0); Total Bilirubin 0.4 mg/dL (0.2-1.0); Total Protein 6.1 g/dL (6.4-8.9); eGFR CKD-EPI 51.5 (>60)
[2021-07-13] MEDS ORDERED: Piperacillin/Tazobac ADVAN 3.375 GM in NS 0.9% 100 ml BAG 100 ML IV ONE (08:01)
[2021-07-13] MEDS: Mometasone/Formoter 200/5 MDI INH SCH ×3 (08:09→20:01)
[2021-07-13] MEDS: Multivitamins/Minerals TAB PO SCH (08:10)
[2021-07-13] MEDS ORDERED: Zosyn per Pharmacy NOTE FOLLOW UP SCH (09:00)
[2021-07-13] MEDS: OMEGA PO SCH ×2 (11:18→22:05)
[2021-07-13] MEDS: FATTY ACID PO SCH ×2 (11:18→22:05)
[2021-07-13] MEDS: ZOSYN 3.375 GM Q8H per EXTENDED INFUSION IV SCH (16:51)
[2021-07-13] MEDS ORDERED: cefTRIAXone 1 gm/50 mL NS BAG 1 GM/50 ML BAG IVPB SCH (21:00)
[2021-07-13] MEDS ORDERED: Remdesivir 100 mg Vial 100 MG in NS 0.9% 250 ml 230 ML IV SCH (21:00)
[2021-07-13] MEDS ORDERED: Azithromycin 500 mg/250 ml NS 500 MG/250 ML BAG IVPB SCH (22:30)
[2021-07-14] MEDS: ZOSYN 3.375 GM Q8H per EXTENDED INFUSION IV SCH ×2 (02:31→11:58)
[2021-07-14 06:45] LABS: ABS Lymphocytes 0.3 10^3/ul (1.0-4.8); ABS Monocytes 0.4 10^3/ul (0-0.8); ABS Neutrophils 2.3 10^3/ul (1.5-7.7); Hematocrit 30 % (42-52); Hemoglobin 10.1 g/dL (14.0-18.0); Lymphocyte % 10.7 %; Mean Corpuscular HGB Conc 34 g/dL (31-36); Mean Corpuscular Hemoglobin 27 pg (27-31); Mean Corpuscular Volume 82 fL (80-94); Mean Platelet Volume 8.5 fL (7.4-10.4); Nucleated Red Blood Cells % 0.1; Platelet Count 123 10^3/uL (150-450); Red Blood Count 3.69 10^6 /uL (4.18-5.48); Red Cell Distribution Width 21 % (10-15)
[2021-07-14 06:59] LABS: Albumin 3.3 g/dL (3.2-5.2); Albumin/Globulin Ratio 1.1 (1-3); Calcium 8.7 mg/dL (8.6-10.3); Globulin 2.9 g/dL (2-4); INR 1.24 (0.86-1.15); Total Bilirubin 0.5 mg/dL (0.2-1.0); Total Protein 6.2 g/dL (6.4-8.9); eGFR CKD-EPI 53.8 (>60)
[2021-07-14] MEDS: Multivitamins/Minerals TAB PO SCH (08:15)
[2021-07-14] MEDS: Mometasone/Formoter 200/5 MDI INH SCH (08:53)
[2021-07-14] MEDS ORDERED: FATTY ACID PO SCH (09:00)
[2021-07-14] MEDS ORDERED: OMEGA PO SCH (09:00)
[2021-07-14] MEDS: FATTY ACID PO SCH (09:15)
[2021-07-14] MEDS: OMEGA PO SCH (09:15)
[2021-07-14 16:14] VITALS: BP 134/88
== END 2021-07-14 19:05 | disposition home or self-care (01) | DRG 177 ==
LOC: ED 12:36 → SUATTDRO 18:34 → EDHOLD 18:34 → MED 21:04
PROVIDERS: ADMIT Internal Medicine; ATTEND Internal Medicine